=== PATIENT | female | born 1965 | race African-American/Black ===

== ENCOUNTER 2020-03-13 16:58 | Inpatient (IN) | payer MEDICARE, OTHER ==
[~2020-03-13] VITALS: Ht 162.6 cm; Wt 107.2 kg
[2020-03-13] MEDS ORDERED: SODIUM CHLORIDE 0.9% 1000ML 1,000 ML IV STA (17:06)
[2020-03-13] MEDS ORDERED: ACETAMINOPHEN 325 MG TAB PO ONE (17:09)
[2020-03-13] MEDS ORDERED: PIPER-TAZ 3.375 GM 50 ML IV SCH (17:15)
[2020-03-13] MEDS ORDERED: CLINDAMYCIN 600MG / 50ML 50 ML IV SCH (17:15)
[2020-03-13] MEDS ORDERED: MORPHINE SULFATE 2 MG/ML SYR 1ML IV PRN (17:15)
[2020-03-13 17:55] LABS: BASOPHILS % 0.3 % (0.0-1.0); EOSINOPHILS # (AUTO) 0.1 (0.0-0.4); EOSINOPHILS % 1.1 % (0.0-6.0); HEMATOCRIT 41.6 % (34.2-44.1); HEMOGLOBIN 13.6 g/dL (12.0-16.0); LYMPHOCYTES % 26.3 % (18.0-39.1); MEAN CORPUSCULAR HEMOGLOBIN 29.3 pg (28-32); MEAN CORPUSCULAR HGB CONC 32.7 g/dL (31-35); MEAN CORPUSCULAR VOLUME 89.7 fL (81-99); MONOCYTES # (AUTO) 0.6 (0.2-0.8); MONOCYTES % 8.3 % (4.4-11.3); NEUTROPHILS # (AUTO) 4.8 (2.1-6.9); NEUTROPHILS % 63.9 % (38.7-80.0); PLATELET COUNT 385 x10e3/uL (140-360); RED BLOOD COUNT 4.64 x10e6/uL (3.6-5.1); RED CELL DISTRIBUTION WIDTH 12.2 % (11.7-14.4)
[2020-03-13] MEDS: MORPHINE SULFATE INJ 4 MG/ML INJ 1ML IV PRN ×2 (17:59→23:24)
[2020-03-13] MEDS: SODIUM CHLORIDE 0.9% 1000ML 1,000 ML IV SCH (18:00)
[2020-03-13] MEDS: ONDANSETRON HCL INJ 2MG/ML 2ML 2 MG/ML VIAL IV PRN ×2 (18:01→23:23)
[2020-03-13 18:13] LABS: ALBUMIN 3.6 g/dL (3.5-5.0); ALBUMIN/GLOBULIN RATIO 0.8 (0.8-2.0); ANION GAP 15.6 mmol/L (8-16); CALCIUM 9.7 mg/dL (8.4-10.2); CREATININE, SERUM 1.33 mg/dL (0.57-1.11); POTASSIUM 4.6 mmol/L (3.5-5.1)
[2020-03-13] MEDS ORDERED: DEXTROSE 50% SYRINGE 50 ML IV PRN (18:30)
[2020-03-13] MEDS ORDERED: SODIUM CHLORIDE 0.9% 1000ML 1,000 ML IV SCH (19:15)
[2020-03-13] MEDS ORDERED: ACETAMINOPHEN 325 MG TAB PO PRN (20:00)
[2020-03-13] MEDS ORDERED: DOCUSATE SODIUM 100 MG CAP PO PRN (20:00)
[2020-03-13 20:05] LABS: CHOL/HDL RATIO 7.3 (3.0-3.6); CHOLESTEROL 323 MD/DL (0-199); HDL CHOLESTEROL 44 MG/DL (40-60); TRIGLYCERIDES 498 MG/DL (0-149)
[2020-03-13] MEDS: INSULIN LISPRO 100 UNIT/1 ML 3ML VIAL SQ SCH (20:56)
[2020-03-13 21:15] VITALS: BP 129/85
[2020-03-13 21:25] VITALS: BP 129/85
[2020-03-13 21:30] VITALS: BP 129/85
[2020-03-13] MEDS: AZTREONAM (AZACTAM) 0.5 GM in SODIUM CHLORIDE 0.9% 50ML 50 ML IV SCH (21:30)
[2020-03-13] MEDS ORDERED: AZTREONAM 0.5 GM in WATER STERILE 10ML VIAL 10 ML IV SCH (22:00)
[2020-03-14] VITALS (8 sets, daily range): BP systolic 101–130; BP diastolic 63–87
[2020-03-14] MEDS: SODIUM CHLORIDE 0.9% 1000ML 1,000 ML IV SCH ×3 (01:15→17:15)
[2020-03-14] MEDS: CLINDAMYCIN 600MG / 50ML 50 ML IV SCH ×3 (01:22→17:19)
[2020-03-14] MEDS ORDERED: LASIX40 MG PO (01:33)
[2020-03-14] MEDS ORDERED: SEROQUEL100 MG PO (01:33)
[2020-03-14] MEDS ORDERED: LISINOPRIL10 MG PO (01:33)
[2020-03-14] MEDS ORDERED: METOPROLOL TART25 MG PO (01:33)
[2020-03-14] MEDS ORDERED: XARELTO20 MG (01:33)
[2020-03-14] MEDS ORDERED: OXYBUTYNIN CHLOR5 MG PO (01:33)
[2020-03-14] MEDS ORDERED: GABAPENTIN300 MG PO (01:33)
[2020-03-14] MEDS ORDERED: FAMOTIDINE20 MG PO ×2 (01:33)
[2020-03-14] MEDS ORDERED: ESTRADIOL1 MG PO (01:35)
[2020-03-14] MEDS: ONDANSETRON HCL INJ 2MG/ML 2ML 2 MG/ML VIAL IV PRN ×3 (04:28→22:05)
[2020-03-14] MEDS: MORPHINE SULFATE INJ 4 MG/ML INJ 1ML IV PRN (04:30)
[2020-03-14] MEDS: AZTREONAM (AZACTAM) 0.5 GM in SODIUM CHLORIDE 0.9% 50ML 50 ML IV SCH ×3 (04:43→21:10)
[2020-03-14 05:57] LABS: BASOPHILS % 0.3 % (0.0-1.0); EOSINOPHILS # (AUTO) 0.1 (0.0-0.4); EOSINOPHILS % 1.1 % (0.0-6.0); HEMATOCRIT 37.3 % (34.2-44.1); HEMOGLOBIN 12.1 g/dL (12.0-16.0); LYMPHOCYTES # (AUTO) 1.8 (1.0-3.2); LYMPHOCYTES % 19.9 % (18.0-39.1); MEAN CORPUSCULAR HEMOGLOBIN 28.7 pg (28-32); MEAN CORPUSCULAR HGB CONC 32.4 g/dL (31-35); MEAN CORPUSCULAR VOLUME 88.4 fL (81-99); MONOCYTES # (AUTO) 0.9 (0.2-0.8); MONOCYTES % 9.5 % (4.4-11.3); NEUTROPHILS # (AUTO) 6.2 (2.1-6.9); NEUTROPHILS % 68.9 % (38.7-80.0); PLATELET COUNT 348 x10e3/uL (140-360); RED BLOOD COUNT 4.22 x10e6/uL (3.6-5.1); RED CELL DISTRIBUTION WIDTH 11.9 % (11.7-14.4)
[2020-03-14 06:29] LABS: ANION GAP 13.5 mmol/L (8-16); BLOOD UREA NITROGEN 18 mg/dL (7-26); BUN/CREATININE RATIO 17 (6-25); CALCIUM 9.1 mg/dL (8.4-10.2); CARBON DIOXIDE 24 mmol/L (22-29); CHLORIDE 100 mmol/L (98-107); CREATININE, SERUM 1.06 mg/dL (0.57-1.11); EST GLOMERULAR FILTRATION RATE > 60 ML/MIN (60-); GLUCOSE 271 mg/dL (74-118); POTASSIUM 4.5 mmol/L (3.5-5.1); SODIUM 133 mmol/L (136-145)
[2020-03-14] MEDS: INSULIN LISPRO 100 UNIT/1 ML 3ML VIAL SQ SCH ×4 (07:30→21:00)
[2020-03-14] MEDS ORDERED: HYDROCODONE/APAP 7.5MG-325MG 1 EA TAB PO PRN (09:45)
[2020-03-14] MEDS ORDERED: HYDROMORPHONE 1MG/1ML INJ IV PRN (09:45)
--- NOTE | 2020-03-14 10:03 | Operative Report ---
DATE OF PROCEDURE: 03/14/2020 SURGEON: Kulwant Mann MD PREOPERATIVE DIAGNOSIS: Infected recurrent epidermal cyst. POSTOPERATIVE DIAGNOSIS: Infected recurrent epidermal cyst. PROCEDURE PERFORMED: Incision and drainage and debridement of infected recurrent epidermal inclusion cyst. ANESTHESIA: General. ESTIMATED BLOOD LOSS: Minimal. DRAINS: None. COMPLICATIONS: None. INDICATION AND FINDINGS: This is a mentally-handicapped 54-year-old female with multiple medical problems, admitted for I and D of an abscess of the back. She had a previous drainage in the past, now has repaired. Intraoperative findings were about a 3 cm area of induration with central area of pregangrenous changes of the skin, very fluctuant, foul smelling was found. DESCRIPTION OF PROCEDURE: With the patient lying on the operative table in the supine position after administration of general anesthesia, she was prepped and draped for incision and drainage of recurrent infected epidermal inclusion cyst of the back abscess. An incision was made in a circular fashion slightly above the size of about 1.2 cm until the thin pregangrenous skin was excised. The cavity entered and loculations were broken down. Part of the abscess cavity was then removed including the lining of the cyst. At this point, we then irrigated the wound, cauterized any bleeding points and then packed the wound with iodoform gauze. Sterile dressing was applied. The patient tolerated the procedure well and taken to recovery room in stable condition. MD SERGIO Ibarra/MODL /[id number]
[2020-03-14] MEDS ORDERED: FENTANYL CITRATE/PF 100MCG/2 ML INJ ONE (10:04)
[2020-03-14] MEDS: FENOFIBRATE 145 MG TAB PO SCH (11:01)
[2020-03-14] MEDS ORDERED: SEVOFLURANE INHAL SOLN 250 ML PEN BTL ONE (14:54)
[2020-03-14] MEDS ORDERED: DEXAMETHASONE SOD PHOS INJ 4 MG/ML VIAL ONE (14:54)
[2020-03-14] MEDS ORDERED: ROCURONIUM BROMIDE 10 MG/ML 5ML VIAL IV ONE (14:54)
[2020-03-14] MEDS ORDERED: PROPOFOL IV EMULSION 10 MG/ML 20 ML VIAL ONE (14:54)
[2020-03-14] MEDS ORDERED: ONDANSETRON HCL INJ 2MG/ML 2ML 2 MG/ML VIAL ONE (14:54)
[2020-03-14] MEDS ORDERED: LIDOCAINE HCL 2% LOCAL INJ 5 ML SDV VIAL INJ ONE (14:54)
[2020-03-14] MEDS ORDERED: CEPACOL SORE THROAT LOZENGES PO PRN (15:45)
[2020-03-14] MEDS ORDERED: INSULIN GLARGINE 100 UNITS/ML VIAL SQ SCH (21:00)
[2020-03-14] MEDS: ATORVASTATIN 40 MG TAB PO SCH (21:10)
[2020-03-14] MEDS: ZOLPIDEM TARTRATE 5 MG TAB PO PRN (22:05)
[2020-03-15] VITALS (8 sets, daily range): BP systolic 124–149; BP diastolic 64–92
[2020-03-15] MEDS: SODIUM CHLORIDE 0.9% 1000ML 1,000 ML IV SCH ×4 (01:15→22:29)
[2020-03-15] MEDS: CLINDAMYCIN 600MG / 50ML 50 ML IV SCH ×3 (01:39→17:25)
[2020-03-15] MEDS: CALCIUM CARBONATE 500 MG CHEWABLE TABS PO PRN (01:42)
[2020-03-15] MEDS: AZTREONAM (AZACTAM) 0.5 GM in SODIUM CHLORIDE 0.9% 50ML 50 ML IV SCH ×3 (04:04→21:05)
[2020-03-15 05:57] LABS: ANION GAP 16.7 mmol/L (8-16); BLOOD UREA NITROGEN 15 mg/dL (7-26); BUN/CREATININE RATIO 15 (6-25); CALCIUM 9.9 mg/dL (8.4-10.2); CARBON DIOXIDE 26 mmol/L (22-29); CHLORIDE 96 mmol/L (98-107); CREATININE, SERUM 1.01 mg/dL (0.57-1.11); EST GLOMERULAR FILTRATION RATE > 60 ML/MIN (60-); GLUCOSE 258 mg/dL (74-118); POTASSIUM 4.7 mmol/L (3.5-5.1); SODIUM 134 mmol/L (136-145)
[2020-03-15] MEDS: INSULIN GLARGINE 100 UNITS/ML VIAL SQ SCH ×3 (06:15→21:05)
[2020-03-15] MEDS: INSULIN LISPRO 100 UNIT/1 ML 3ML VIAL SQ SCH ×4 (07:30→21:00)
[2020-03-15] MEDS ORDERED: CLINDAMYCIN HC150 MG PO (08:04)
[2020-03-15] MEDS: FENOFIBRATE 145 MG TAB PO SCH (08:20)
--- NOTE | 2020-03-15 15:09 | Consultation ---
DATE OF CONSULTATION: 03/15/2020 REASON FOR CONSULTATION: Back cellulitis and abscess. Thank you, Dr. Da Silva, for asking me to see this patient. HISTORY OF PRESENT ILLNESS: The patient is a 54-year-old woman, who presented to the emergency department with back abscess and cellulitis for two weeks. She denies fever and chills. There is no insect or spider bite. Also, she denies trauma. She has uncontrolled diabetes mellitus type 2. She has been evaluated by the surgical service and has successfully undergone incision and drainage. PAST MEDICAL HISTORY: Diabetes mellitus type 2, hypertension, hyperlipidemia, myocardial infarction, cerebrovascular accident, transient ischemic attack, and depression. PAST SURGICAL HISTORY: Uterine myomectomy and bladder surgery. ALLERGIES: THE PATIENT REPORTS BAD YEAST INFECTION TO PENICILLIN, WHICH HAD BEEN DOCUMENTED ALLERGY. MEDICATIONS: See MAR. The current antibiotics are Azactam 500 mg IV piggyback q.8 hours and clindamycin 600 mg IV piggyback q.8 hours. FAMILY HISTORY: Diabetes mellitus: Mother and father. SOCIAL HISTORY: No alcohol, tobacco, or recreational drug use. REVIEW OF SYSTEMS: The patient feels better and wants to work to go home. PHYSICAL EXAMINATION: GENERAL: No acute distress and does not appear toxic. VITAL SIGNS: T-max 98.1, pulse rate 95, respiratory rate 20, blood pressure 130/80, weight 236 pounds. HEENT: Normocephalic and atraumatic. There is no icterus or injection of conjunctivae. There is no ear or nasal discharge. There is moist oral mucosa. No pharyngeal erythema or exudate. NECK: Supple. No JVD or meningismus. LUNGS: Clear to auscultation bilaterally. HEART: With normal S1 and S2. Regular. ABDOMEN: Soft and nontender. EXTREMITIES: No edema, clubbing, or cyanosis. SKIN: The left upper back wound dressing is clean and intact. 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 LABORATORY AND DIAGNOSTICS: 03/14/2020 WBC 9060, hemoglobin 12.1, platelet 348,000, neutrophils 68.9, lymphocytes 19.9, monocytes 9.5, eosinophils 1.1, and basophils 0.5. BUN 15, creatinine 1.01, blood glucose 258. Surgical wound culture is pending, but the Gram stain showed Gram-positive cocci in pairs. IMPRESSION: 1. Cellulitis and abscess of the back, status post incision and drainage. 2. Uncontrolled diabetes mellitus type 2. PLAN: 1. Check wound culture result. 2. Glycemic control. 3. The patient may be discharged on clindamycin 300 mg by mouth four times a day for five days if she insists on being discharged home today. 4. Remove penicillin from allergy list. Bad vaginal yeast infection on penicillin is not an allergic reaction. MD JAMAR Benito/MODLilia /[id number]
[2020-03-15] MEDS ORDERED: PANTOPRAZOLE SOD 40 MG TABEC PO ONE (20:45)
[2020-03-15] MEDS: ATORVASTATIN 40 MG TAB PO SCH (21:05)
[2020-03-15] MEDS: ZOLPIDEM TARTRATE 5 MG TAB PO PRN (21:06)
[2020-03-16 00:22] VITALS: BP 127/82
[2020-03-16] MEDS: CALCIUM CARBONATE 500 MG CHEWABLE TABS PO PRN (02:17)
[2020-03-16] MEDS: CLINDAMYCIN 600MG / 50ML 50 ML IV SCH (02:17)
[2020-03-16 04:00] VITALS: BP 162/98
[2020-03-16] MEDS: AZTREONAM (AZACTAM) 0.5 GM in SODIUM CHLORIDE 0.9% 50ML 50 ML IV SCH (05:39)
[2020-03-16] MEDS: INSULIN LISPRO 100 UNIT/1 ML 3ML VIAL SQ SCH (07:30)
[2020-03-16 08:02] VITALS: BP 170/107
[2020-03-16 08:03] VITALS: BP 170/107
[2020-03-16] MEDS: FENOFIBRATE 145 MG TAB PO SCH (08:41)
[2020-03-16] MEDS: INSULIN GLARGINE 100 UNITS/ML VIAL SQ SCH (08:45)
[2020-03-16] MEDS: SODIUM CHLORIDE 0.9% 1000ML 1,000 ML IV SCH (09:15)
== END 2020-03-16 12:24 | disposition home or self-care (01) | DRG 603 ==
LOC: ER 16:58 → ERHOLD 17:10 → MED/SURG 20:58
PROVIDERS: ADMIT Internal Medicine; ATTEND Internal Medicine
PROC: 0H96XZZ Drainage of Back Skin, External Approach (ICD-10-PCS; principal; 2020-03-14 09:30)
DX: L02.212 Cutaneous abscess of back [any part, except buttock and flank] (principal); Z68.41 Body mass index [BMI] 40.0-44.9, adult; L03.312 Cellulitis of back [any part except buttock and flank]; L72.0 Epidermal cyst; E11.9 Type 2 diabetes mellitus without complications; E66.01 Morbid (severe) obesity due to excess calories; E78.5 Hyperlipidemia, unspecified; Z86.73 Personal history of transient ischemic attack (TIA), and cerebral infarction without residual deficits; Z87.891 Personal history of nicotine dependence; I25.2 Old myocardial infarction
CPT/HCPCS: 36415; 80048; 80053; 80061; 82948; 83036; 85025; 87071; 87075; 87205; 87635; 93005; 99284; J1100; J1815; J2001; J2270; J2405; J3010; J7030

== ENCOUNTER 2020-04-21 17:18 | Inpatient (IN) | payer MEDICARE, OTHER ==
[~2020-04-21] VITALS: Ht 162.6 cm; Wt 107.0 kg
[~2020-04-21 17:18] MED LIST: CLINDAMYCIN HC150 MG PO; ESTRADIOL1 MG PO; FAMOTIDINE20 MG PO; GABAPENTIN300 MG PO; LASIX40 MG PO; LISINOPRIL10 MG PO; METOPROLOL TART25 MG PO; OXYBUTYNIN CHLOR5 MG PO; SEROQUEL100 MG PO; XARELTO20 MG
[2020-04-21] MEDS ORDERED: SODIUM CHLORIDE 0.9% 1000ML 1,000 ML IV STA (17:19)
--- OUTSIDE RECORDS SUMMARY | 2020-04-21 17:22 | XMS REPORT | Summary of Care ---
Author Author [facility] Organization [facility] Address Unknown Phone Unavailable Encounter HQ Kirill(IRASEMA) [id number] Date(s): 06/16/18 - 06/17/18 [facility] [address] [place] [address]- Encounter Diagnosis Chronic obstructive pulmonary disease with (acute) exacerbation (Final) - 06/29/18 Tobacco use (Final) - Type 2 diabetes mellitus with hyperglycemia (Final) - Type 2 diabetes mellitus with diabetic polyneuropathy (Final) - Patient's other noncompliance with medication regimen (Final) - Hyperlipidemia, unspecified (Final) - Essential (primary) hypertension (Final) - rn long term care (current) use of anticoagulants (Final) - Personal history of pulmonary embolism (Final) - Discharge Disposition: Home or Self Care Attending Physician: Argelia Agrawal MD Admitting Physician: Argelia Agrawal MD Vital Signs 1 2 3 Most recent to oldest [Reference Range]: 175.26 cm (06/16/18 1:54 AM) Height 97.5 DegF (06/17/18 8:15 AM) 98.0 DegF (06/17/18 4:50 AM) 97.9 DegF (06/17/18 12:02 AM) Temperature Oral [96.4-99.1 DegF] 123/62 mmHg (06/17/18 8:15 AM) 144/89 mmHg *HI* (06/17/18 4:50 AM) 141/67 mmHg *HI* (06/17/18 12:02 AM) Blood Pressure [90-140/60-90 mmHg] 20 BRMIN (06/17/18 8:15 AM) 18 BRMIN (06/17/18 4:50 AM) 18 BRMIN (06/17/18 12:02 AM) Respiratory Rate [14-20 BRMIN] 100 bpm (06/17/18 8:15 AM) 111 bpm *HI* (06/16/18 1:54 AM) Peripheral Pulse Rate [60-100 bpm] 115.909 kg (06/16/18 4:23 PM) 104.545 kg (06/16/18 1:54 AM) Weight 34.04 m2 (06/16/18 1:54 AM) Body Mass Index Problem List Condition Effective Dates Status Health Status Informan t Bipolar(Confirmed) Resolved Bronchitis(Confirmed Resolved ) Diabetes Resolved mellitus(Confirmed) Hypertension(Confirm Resolved ed) Type II diabetes Active mellitus poorly controlled(Confirmed ) Allergies, Adverse Reactions, Alerts Substance Reaction Severity Status penicillins1 Active 1per patient "yeast infections" Medications acetaminophen 650 mg, 2 tab, Route: PO, Drug form: TAB, Q4H, Dosing Weight 104.545, kg, PRN Pa in 1-3/Temp > 100.4 F, Start date: 06/16/18 4:03:00 CDT, Duration: 30 day, Stop date: 07/16/18 4:02:00 CDT Notes: Do not exceed 4 gm/day. (Same as: Tylenol) Start Date: 06/16/18 Stop Date: 06/17/18 Status: Discontinued Advair Diskus 250 mcg-50 mcg inhalation powder 1 puff, INHALATION, BID Start Date: 06/16/18 Status: Ordered Advair Diskus 250 mcg-50 mcg inhalation powder 1 puff, Route: INHALATION, Drug Form: AERO, Dosing Weight 104.545, kg, BID, Star t date: 06/16/18 17:00:00 CDT, Duration: 30 day, Stop date: 07/16/18 9:00:00 CDT Start Date: 06/16/18 Stop Date: 06/16/18 Status: Deleted albuterol 0.083% inhalation solution 2.49 mg, Route: NEB, Drug form: SOLN, ONCE, Dosing Weight 104.545, kg, Priority: STAT, Start date: 06/16/18 3:49:00 CDT, Stop date: 06/16/18 3:49:00 CDT Start Date: 06/16/18 Stop Date: 06/16/18 Status: Completed albuterol-ipratropium 2.5-0.5 mg inhalation solution 3 ml, Route: NEB, Drug Form: SOLN, Dosing Weight 115.909, kg, ONCE, NOW, Start d ate: 06/17/18 2:09:00 CDT, Stop date: 06/17/18 2:09:00 CDT, Pediatric Dosing Start Date: 06/17/18 Stop Date: 06/17/18 Status: Completed atorvastatin 40 mg, 1 tab, Route: PO, Drug form: TAB, Bedtime, Dosing Weight 104.545, kg, Sta rt date: 06/16/18 21:00:00 CDT, Duration: 30 day, Stop date: 07/15/18 21:00:00 C DT Notes: (Same as: Lipitor) Start Date: 06/16/18 Stop Date: 06/17/18 Status: Discontinued atorvastatin 40 mg oral tablet 40 mg = 1 tab, PO, QPM Start Date: 06/16/18 Status: Ordered azithromycin 500 mg, Route: IVPB, ONCE, Dosing Weight 104.545, kg, Priority: STAT, Start date : 06/16/18 3:46:00 CDT, Stop date: 06/16/18 3:46:00 CDT, ABX Indication: Pneumon ia Start Date: 06/16/18 Stop Date: 06/16/18 Status: Completed Brovana 15 microgram, 2 mL, Route: NEB, Drug form: SOLN, BID, Dosing Weight 104.545, kg, Start date: 06/16/18 9:00:00 CDT, Duration: 30 day, Stop date: 07/15/18 17:00:00 CDT Notes: SEE RT DOCUMENTATIONSame as Brovana Start Date: 06/16/18 Stop Date: 06/17/18 Status: Discontinued budesonide 0.25 mg, 1 mL, Route: NEB, Drug form: SUSP, RBID, Dosing Weight 104.545, kg, Sta rt date: 06/16/18 4:54:00 CDT, Duration: 30 day, Stop date: 07/15/18 20:00:00 CD T Notes: (Same As: Pulmicort) Start Date: 06/16/18 Stop Date: 06/17/18 Status: Discontinued budesonide-formoterol 160 mcg-4.5 mcg/inh inhalation aerosol with adapter 2 inhalation, Route: INHALATION, Drug Form: AERO/A, RBID, Start date: 06/16/18 2 0:00:00 CDT, Duration: 30 day, Stop date: 07/16/18 8:00:00 CDT Notes: (Same as: Symbicort)WASTE: Aerosol - Return to Pharmacy Start Date: 06/16/18 Stop Date: 06/17/18 Status: Discontinued busPIRone 15 mg, 3 tab, Route: PO, Drug form: TAB, TID, Dosing Weight 104.545, kg, Start d ate: 06/16/18 13:00:00 CDT, Duration: 30 day, Stop date: 07/16/18 9:00:00 CDT Notes: (Same As: BuSpar) Start Date: 06/16/18 Stop Date: 06/16/18 Status: Deleted busPIRone 15 mg oral tablet 15 mg = 1 tab, PO, TID Start Date: 06/16/18 Status: Ordered Buspirone 15mg Buspirone 15mg, 1 tab, Drug form: MISC, Route: PO, TID, 06/16/18 13:00:00 CDT, D uration: 30 day, Stop date: 07/16/18 9:00:00 CDT Start Date: 06/16/18 Stop Date: 06/17/18 Status: Discontinued Chantix 1 mg, 2 tab, Route: PO, Drug form: TAB, BID, Dosing Weight 104.545, kg, Start da te: 06/16/18 17:00:00 CDT, Duration: 30 day, Stop date: 07/16/18 9:00:00 CDT Notes: Same as Chantix Start Date: 06/16/18 Stop Date: 06/17/18 Status: Discontinued Chantix 1 mg oral tablet 1 mg = 1 tab, PO, BID Start Date: 06/16/18 Status: Ordered Dextrose 50% Syringe 25 gm, 50 mL, Route: IVP, Drug Form: INJ, Dosing Weight 104.545, kg, PRN, PRN Bl ood Glucose Results, Start date: 06/16/18 4:05:00 CDT, Duration: 30 day, Stop da te: 07/16/18 4:04:00 CDT Start Date: 06/16/18 Stop Date: 06/16/18 Status: Discontinued Dextrose 50% Syringe 12.5 gm, 25 mL, Route: IVP, Drug Form: INJ, Dosing Weight 104.545, kg, PRN, PRN Blood Glucose Results, Start date: 06/16/18 4:05:00 CDT, Duration: 30 day, Stop date: 07/16/18 4:04:00 CDT Start Date: 06/16/18 Stop Date: 06/16/18 Status: Discontinued Dextrose 50% Syringe 25 gm, 50 mL, Route: IVP, Drug Form: INJ, Dosing Weight 104.545, kg, PRN, PRN Bl ood Glucose Results, Start date: 06/16/18 13:03:00 CDT, Duration: 30 day, Stop d ate: 07/16/18 13:02:00 CDT Start Date: 06/16/18 Stop Date: 06/17/18 Status: Discontinued Dextrose 50% Syringe 12.5 gm, 25 mL, Route: IVP, Drug Form: INJ, Dosing Weight 104.545, kg, PRN, PRN Blood Glucose Results, Start date: 06/16/18 13:03:00 CDT, Duration: 30 day, Stop date: 07/16/18 13:02:00 CDT Start Date: 06/16/18 Stop Date: 06/17/18 Status: Discontinued DuoNeb inhalation solution 3 mL, Route: NEB, Drug Form: SOLN, Dosing Weight 104.545, kg, QID, Start date: 0 06/16/18 9:00:00 CDT, Duration: 30 day, Stop date: 07/15/18 21:00:00 CDT Notes: (Same as: Duoneb) Start Date: 06/16/18 Stop Date: 06/17/18 Status: Discontinued DuoNeb inhalation solution 3 mL, NEB, QID, # 90 mL, 0 Refill(s), Pharmacy: [facility]/pharmacy #[id number] Start Date: 06/17/18 Status: Ordered DuoNeb inhalation solution 6 mL, Route: NEB, Drug Form: SOLN, Dosing Weight 104.545, kg, ONCE, Start date: 06/16/18 2:37:00 CDT, Stop date: 06/16/18 2:37:00 CDT Start Date: 06/16/18 Stop Date: 06/16/18 Status: Completed famotidine 20 mg, 1 tab, Route: PO, Drug form: TAB, Q12H, Start date: 06/16/18 21:00:00 CDT , Duration: 30 day, Stop date: 07/16/18 9:00:00 CDT Notes: (Same as: Pepcid) Start Date: 06/16/18 Stop Date: 06/17/18 Status: Discontinued gabapentin 600 mg oral tablet 600 mg = 1 tab, PO, TID Start Date: 06/16/18 Status: Ordered glucagon 1 mg, Route: IM, Drug form: PDR/INJ, PRN, Dosing Weight 104.545, kg, PRN Blood G lucose Results, Start date: 06/16/18 4:05:00 CDT, Duration: 30 day, Stop date: 0 07/16/18 4:04:00 CDT Start Date: 06/16/18 Stop Date: 06/16/18 Status: Discontinued glucagon 1 mg, Route: IM, Drug form: PDR/INJ, PRN, Dosing Weight 104.545, kg, PRN Blood G lucose Results, Start date: 06/16/18 13:03:00 CDT, Duration: 30 day, Stop date: 07/16/18 13:02:00 CDT Start Date: 06/16/18 Stop Date: 06/17/18 Status: Discontinued Humalog 15 unit, 0.15 mL, Route: SUB-Q, Drug form: SOLN, BID-After Meals, Start date: 17:30:00 CDT, Duration: 30 day, Stop date: 07/16/18 8:30:00 CDT Notes: (Same as: Humalog ) Roll in palms of hands gently; Do not shake `vigorou sly. "Single Patient Use Only " WASTE: F/P - Black; E - [facility] [address] able for 28 days at room temperature.Expires in days from Da te Start Date: 06/16/18 Stop Date: 06/16/18 Status: Canceled insulin detemir 25 unit, Route: SUB-Q, Drug form: SOLN, QPM (Insulin), Dosing Weight 104.545, kg , Start date: 06/16/18 16:30:00 CDT, Duration: 30 day, Stop date: 07/15/18 16:30 :00 CDT Start Date: 06/16/18 Stop Date: 06/16/18 Status: Deleted insulin glargine 25 unit, 0.25 mL, Route: SUB-Q, Drug form: SOLN, QPM, Start date: 06/16/18 21:00 :00 CDT, Duration: 30 day, Stop date: 07/15/18 21:00:00 CDT Notes: (Same as: Lantus)Do not hold insulin without contacting prescriberWASTE: F/P - Black; E - [facility] "single patient use only" Start Date: 06/16/18 Stop Date: 06/17/18 Status: Voided With Results insulin glargine 25 unit, 0.25 mL, Route: SUB-Q, Drug form: SOLN, BID, Dosing Weight 104.545, kg, Start date: 06/16/18 9:00:00 CDT, Duration: 30 day, Stop date: 07/15/18 17:00:00 CDT Notes: (Same as: Lantus)Do not hold insulin without contacting prescriberWASTE: F/P - Black; E - [facility] "single patient use only" Start Date: 06/16/18 Stop Date: 06/16/18 Status: Discontinued insulin lispro 10 unit, 0.1 mL, Route: SUB-Q, Drug form: SOLN, TID-Before Meals, Dosing Weight 104.545, kg, PRN Blood Glucose Results, Start date: 06/16/18 16:51:00 CDT, Durat ion: 30 day, Stop date: 07/16/18 16:50:00 CDT Notes: (Same as: Humalog ) Roll in palms of hands gently; Do not shake `vigorou sly. "Single Patient Use Only " WASTE: F/P - Black; E - [facility] [address] able for 28 days at room temperature.Expires in days from Da te Start Date: 06/16/18 Stop Date: 06/17/18 Status: Discontinued insulin lispro 10 unit, 0.1 mL, Route: SUB-Q, Drug form: SOLN, TID-Before Meals, Dosing Weight 104.545, kg, PRN Blood Glucose Results, Start date: 06/16/18 4:05:00 CDT, Durati on: 30 day, Stop date: 07/16/18 4:04:00 CDT Notes: (Same as: Humalog ) Roll in palms of hands gently; Do not shake `vigorou sly. "Single Patient Use Only " WASTE: F/P - Black; E - [facility] [address] able for 28 days at room temperature.Expires in days from Da te Start Date: 06/16/18 Stop Date: 06/16/18 Status: Discontinued insulin lispro 8 unit, 0.08 mL, Route: SUB-Q, Drug form: SOLN, TID-Before Meals, Dosing Weight 104.545, kg, PRN Blood Glucose Results, Start date: 06/16/18 4:05:00 CDT, Durati on: 30 day, Stop date: 07/16/18 4:04:00 CDT Notes: (Same as: Humalog ) Roll in palms of hands gently; Do not shake `vigorou sly. "Single Patient Use Only " WASTE: F/P - Black; E - [facility] [address] able for 28 days at room temperature.Expires in days from Da te Start Date: 06/16/18 Stop Date: 06/16/18 Status: Discontinued insulin lispro 6 unit, 0.06 mL, Route: SUB-Q, Drug form: SOLN, TID-Before Meals, Dosing Weight 104.545, kg, PRN Blood Glucose Results, Start date: 06/16/18 4:05:00 CDT, Durati on: 30 day, Stop date: 07/16/18 4:04:00 CDT Notes: (Same as: Humalog ) Roll in palms of hands gently; Do not shake `vigorou sly. "Single Patient Use Only " WASTE: F/P - Black; E - [facility] [address] able for 28 days at room temperature.Expires in days from Da te Start Date: 06/16/18 Stop Date: 06/16/18 Status: Discontinued insulin lispro 4 unit, 0.04 mL, Route: SUB-Q, Drug form: SOLN, Bedtime, Dosing Weight 104.545, kg, PRN Blood Glucose Results, Start date: 06/16/18 4:05:00 CDT, Duration: 30 da y, Stop date: 07/16/18 4:04:00 CDT Notes: (Same as: Humalog ) Roll in palms of hands gently; Do not shake `vigorou sly. "Single Patient Use Only " WASTE: F/P - Black; E - [facility] [address] able for 28 days at room temperature.Expires in days from Da te Start Date: 06/16/18 Stop Date: 06/16/18 Status: Discontinued insulin lispro 1 unit, 0.01 mL, Route: SUB-Q, Drug form: SOLN, Bedtime, Dosing Weight 104.545, kg, PRN Blood Glucose Results, Start date: 06/16/18 4:05:00 CDT, Duration: 30 da y, Stop date: 07/16/18 4:04:00 CDT Notes: (Same as: Humalog ) Roll in palms of hands gently; Do not shake `vigorou sly. "Single Patient Use Only " WASTE: F/P - Black; E - [facility] [address] able for 28 days at room temperature.Expires in days from Da te Start Date: 06/16/18 Stop Date: 06/16/18 Status: Discontinued insulin lispro 3 unit, 0.03 mL, Route: SUB-Q, Drug form: SOLN, Bedtime, Dosing Weight 104.545, kg, PRN Blood Glucose Results, Start date: 06/16/18 4:05:00 CDT, Duration: 30 da y, Stop date: 07/16/18 4:04:00 CDT Notes: (Same as: Humalog ) Roll in palms of hands gently; Do not shake `vigorou sly. "Single Patient Use Only " WASTE: F/P - Black; E - [facility] [address] able for 28 days at room temperature.Expires in days from Da te Start Date: 06/16/18 Stop Date: 06/16/18 Status: Discontinued insulin lispro 2 unit, 0.02 mL, Route: SUB-Q, Drug form: SOLN, Bedtime, Dosing Weight 104.545, kg, PRN Blood Glucose Results, Start date: 06/16/18 4:05:00 CDT, Duration: 30 da y, Stop date: 07/16/18 4:04:00 CDT Notes: (Same as: Humalog ) Roll in palms of hands gently; Do not shake `vigorou sly. "Single Patient Use Only " WASTE: F/P - Black; E - [facility] [address] able for 28 days at room temperature.Expires in days from Da te Start Date: 06/16/18 Stop Date: 06/16/18 Status: Discontinued insulin lispro 4 unit, 0.04 mL, Route: SUB-Q, Drug form: SOLN, TID-Before Meals, Dosing Weight 104.545, kg, PRN Blood Glucose Results, Start date: 06/16/18 4:05:00 CDT, Durati on: 30 day, Stop date: 07/16/18 4:04:00 CDT Notes: (Same as: Humalog ) Roll in palms of hands gently; Do not shake `vigorou sly. "Single Patient Use Only " WASTE: F/P - Black; E - [facility] [address] able for 28 days at room temperature.Expires in days from Da te Start Date: 06/16/18 Stop Date: 06/16/18 Status: Discontinued insulin lispro 2 unit, 0.02 mL, Route: SUB-Q, Drug form: SOLN, TID-Before Meals, Dosing Weight 104.545, kg, PRN Blood Glucose Results, Start date: 06/16/18 4:05:00 CDT, Durati on: 30 day, Stop date: 07/16/18 4:04:00 CDT Notes: (Same as: Humalog ) Roll in palms of hands gently; Do not shake `vigorou sly. "Single Patient Use Only " WASTE: F/P - Black; E - [facility] [address] able for 28 days at room temperature.Expires in days from Da te Start Date: 06/16/18 Stop Date: 06/16/18 Status: Discontinued insulin lispro 12 unit, 0.12 mL, Route: SUB-Q, Drug form: SOLN, Bedtime, Dosing Weight 104.545, kg, PRN Blood Glucose Results, Start date: 06/16/18 13:03:00 CDT, Duration: 30 day, Stop date: 07/16/18 13:02:00 CDT Notes: (Same as: Humalog ) Roll in palms of hands gently; Do not shake `vigorou sly. "Single Patient Use Only " WASTE: F/P - Black; E - [facility] [address] able for 28 days at room temperature.Expires in days from Da te Start Date: 06/16/18 Stop Date: 06/17/18 Status: Discontinued insulin lispro 10 unit, 0.1 mL, Route: SUB-Q, Drug form: SOLN, Bedtime, Dosing Weight 104.545, kg, PRN Blood Glucose Results, Start date: 06/16/18 13:03:00 CDT, Duration: 30 d ay, Stop date: 07/16/18 13:02:00 CDT Notes: (Same as: Humalog ) Roll in palms of hands gently; Do not shake `vigorou sly. "Single Patient Use Only " WASTE: F/P - Black; E - [facility] [address] able for 28 days at room temperature.Expires in days from Da te Start Date: 06/16/18 Stop Date: 06/17/18 Status: Discontinued insulin lispro 8 unit, 0.08 mL, Route: SUB-Q, Drug form: SOLN, Bedtime, Dosing Weight 104.545, kg, PRN Blood Glucose Results, Start date: 06/16/18 13:03:00 CDT, Duration: 30 d ay, Stop date: 07/16/18 13:02:00 CDT Notes: (Same as: Humalog ) Roll in palms of hands gently; Do not shake `vigorou sly. "Single Patient Use Only " WASTE: F/P - Black; E - [facility] [address] able for 28 days at room temperature.Expires in days from Da te Start Date: 06/16/18 Stop Date: 06/17/18 Status: Discontinued insulin lispro 4 unit, 0.04 mL, Route: SUB-Q, Drug form: SOLN, Bedtime, Dosing Weight 104.545, kg, PRN Blood Glucose Results, Start date: 06/16/18 13:03:00 CDT, Duration: 30 d ay, Stop date: 07/16/18 13:02:00 CDT Notes: (Same as: Humalog ) Roll in palms of hands gently; Do not shake `vigorou sly. "Single Patient Use Only " WASTE: F/P - Black; E - [facility] [address] able for 28 days at room temperature.Expires in days from Da te Start Date: 06/16/18 Stop Date: 06/17/18 Status: Discontinued insulin lispro 9 unit, 0.09 mL, Route: SUB-Q, Drug form: SOLN, TID-Before Meals, Dosing Weight 104.545, kg, PRN Blood Glucose Results, Start date: 06/16/18 13:03:00 CDT, Durat ion: 30 day, Stop date: 07/16/18 13:02:00 CDT Notes: (Same as: Humalog ) Roll in palms of hands gently; Do not shake `vigorou sly. "Single Patient Use Only " WASTE: F/P - Black; E - [facility] [address] able for 28 days at room temperature.Expires in days from Da te Start Date: 06/16/18 Stop Date: 06/17/18 Status: Discontinued insulin lispro 3 unit, 0.03 mL, Route: SUB-Q, Drug form: SOLN, TID-Before Meals, Dosing Weight 104.545, kg, PRN Blood Glucose Results, Start date: 06/16/18 13:03:00 CDT, Durat ion: 30 day, Stop date: 07/16/18 13:02:00 CDT Notes: (Same as: Humalog ) Roll in palms of hands gently; Do not shake `vigorou sly. "Single Patient Use Only " WASTE: F/P - Black; E - [facility] [address] able for 28 days at room temperature.Expires in days from Da te Start Date: 06/16/18 Stop Date: 06/17/18 Status: Discontinued insulin lispro 15 unit, 0.15 mL, Route: SUB-Q, Drug form: SOLN, TID-Before Meals, Dosing Weight 104.545, kg, PRN Blood Glucose Results, Start date: 06/16/18 13:03:00 CDT, Dura tion: 30 day, Stop date: 07/16/18 13:02:00 CDT Notes: (Same as: Humalog ) Roll in palms of hands gently; Do not shake `vigorou sly. "Single Patient Use Only " WASTE: F/P - Black; E - [facility] [address] able for 28 days at room temperature.Expires in days from Da te Start Date: 06/16/18 Stop Date: 06/17/18 Status: Discontinued insulin lispro 12 unit, 0.12 mL, Route: SUB-Q, Drug form: SOLN, TID-Before Meals, Dosing Weight 104.545, kg, PRN Blood Glucose Results, Start date: 06/16/18 13:03:00 CDT, Dura tion: 30 day, Stop date: 07/16/18 13:02:00 CDT Notes: (Same as: Humalog ) Roll in palms of hands gently; Do not shake `vigorou sly. "Single Patient Use Only " WASTE: F/P - Black; E - [facility] [address] able for 28 days at room temperature.Expires in days from Da te Start Date: 06/16/18 Stop Date: 06/17/18 Status: Discontinued insulin lispro 6 unit, 0.06 mL, Route: SUB-Q, Drug form: SOLN, TID-Before Meals, Dosing Weight 104.545, kg, PRN Blood Glucose Results, Start date: 06/16/18 13:03:00 CDT, Durat ion: 30 day, Stop date: 07/16/18 13:02:00 CDT Notes: (Same as: Humalog ) Roll in palms of hands gently; Do not shake `vigorou sly. "Single Patient Use Only " WASTE: F/P - Black; E - [facility] [address] able for 28 days at room temperature.Expires in days from Da te Start Date: 06/16/18 Stop Date: 06/17/18 Status: Discontinued insulin lispro 14 unit, 0.14 mL, Route: SUB-Q, Drug form: SOLN, TID-Before Meals, Dosing Weight 104.545, kg, PRN Blood Glucose Results, Start date: 06/16/18 16:51:00 CDT, Dura tion: 30 day, Stop date: 07/16/18 16:50:00 CDT Notes: (Same as: Humalog ) Roll in palms of hands gently; Do not shake `vigorou sly. "Single Patient Use Only " WASTE: F/P - Black; E - [facility] [address] able for 28 days at room temperature.Expires in days from Da te Start Date: 06/16/18 Stop Date: 06/17/18 Status: Discontinued insulin lispro 18 unit, 0.18 mL, Route: SUB-Q, Drug form: SOLN, TID-Before Meals, Dosing Weight 104.545, kg, PRN Blood Glucose Results, Start date: 06/16/18 16:51:00 CDT, Dura tion: 30 day, Stop date: 07/16/18 16:50:00 CDT Notes: (Same as: Humalog ) Roll in palms of hands gently; Do not shake `vigorou sly. "Single Patient Use Only " WASTE: F/P - Black; E - [facility] [address] able for 28 days at room temperature.Expires in days from Da te Start Date: 06/16/18 Stop Date: 06/17/18 Status: Discontinued insulin lispro 22 unit, 0.22 mL, Route: SUB-Q, Drug form: SOLN, TID-Before Meals, Dosing Weight 104.545, kg, PRN Blood Glucose Results, Start date: 06/16/18 16:51:00 CDT, Dura tion: 30 day, Stop date: 07/16/18 16:50:00 CDT Notes: (Same as: Humalog ) Roll in palms of hands gently; Do not shake `vigorou sly. "Single Patient Use Only " WASTE: F/P - Black; E - [facility] [address] able for 28 days at room temperature.Expires in days from Da te Start Date: 06/16/18 Stop Date: 06/17/18 Status: Discontinued insulin lispro 6 unit, 0.06 mL, Route: SUB-Q, Drug form: SOLN, TID-Before Meals, Dosing Weight 104.545, kg, PRN Blood Glucose Results, Start date: 06/16/18 16:51:00 CDT, Durat ion: 30 day, Stop date: 07/16/18 16:50:00 CDT Notes: (Same as: Humalog ) Roll in palms of hands gently; Do not shake `vigorou sly. "Single Patient Use Only " WASTE: F/P - Black; E - [facility] [address] able for 28 days at room temperature.Expires in days from Da te Start Date: 06/16/18 Stop Date: 06/17/18 Status: Discontinued insulin lispro 15 unit, 0.15 mL, Route: SUB-Q, Drug form: SOLN, BID-Before Meals, Dosing Weight 104.545, kg, Start date: 06/16/18 12:40:00 CDT, Duration: 30 day, Stop date: 7:30:00 CDT Notes: (Same as: Humalog ) Roll in palms of hands gently; Do not shake `jose luis sly. "Single Patient Use Only " WASTE: F/P - Black; E - [facility] able for 28 days at room temperature.Expires in days from Da te Start Date: 06/16/18 Stop Date: 06/16/18 Status: Discontinued Insulin regular 10 unit, Route: IV, ONCE, Dosing Weight 104.545, kg, Priority: STAT, Start date: 06/16/18 3:16:00 CDT, Stop date: 06/16/18 3:16:00 CDT Start Date: 06/16/18 Stop Date: 06/16/18 Status: Completed Januvia 100 mg, 1 tab, Route: PO, Drug form: TAB, Daily, Dosing Weight 104.545, kg, Prio rity: NOW, Start date: 06/16/18 11:33:00 CDT, Duration: 30 day, Stop date: 07/16 9:00:00 CDT Notes: (Same as: Januvia) Start Date: 06/16/18 Stop Date: 06/17/18 Status: Discontinued Januvia 100 mg oral tablet 100 mg = 1 tab, PO, Daily Start Date: 06/16/18 Status: Ordered Lantus 100 units/mL 50 unit, 0.5 mL, Route: SUB-Q, Drug form: SOLN, QAM, Dosing Weight 104.545, kg, Start date: 06/17/18 9:00:00 CDT, Duration: 30 day, Stop date: 07/16/18 9:00:00 CDT Notes: (Same as: Lantus)Do not hold insulin without contacting prescriberWASTE: F/P - Black; E - [facility] "single patient use only" Start Date: 06/17/18 Stop Date: 06/17/18 Status: Canceled Lantus 100 units/mL 25 unit, 0.25 mL, Route: SUB-Q, Drug form: SOLN, ONCE, Dosing Weight 104.545, kg , Priority: STAT, Start date: 06/16/18 11:57:00 CDT, Stop date: 06/16/18 11:57:0 0 CDT Notes: (Same as: Lantus)Do not hold insulin without contacting prescriberWASTE: F/P - Black; E - [facility] "single patient use only" Start Date: 06/16/18 Stop Date: 06/16/18 Status: Completed Lantus 100 units/mL 60 unit, 0.6 mL, Route: SUB-Q, Drug form: SOLN, BID, Dosing Weight 104.545, kg, Start date: 06/17/18 9:00:00 CDT, Duration: 30 day, Stop date: 07/16/18 17:00:00 CDT Notes: (Same as: Lantus)Do not hold insulin without contacting prescriberWASTE: F/P - Black; E - [facility] "single patient use only" Start Date: 06/17/18 Stop Date: 06/17/18 Status: Discontinued Lasix 20 mg oral tablet 20 mg, 1 tab, Route: PO, Drug form: TAB, Daily, Dosing Weight 104.545, kg, Start date: 06/16/18 9:00:00 CDT, Duration: 30 day, Stop date: 07/15/18 9:00:00 CDT Notes: (Same as: Lasix) May cause GI upset. Give with food or milk. Start Date: 06/16/18 Stop Date: 06/17/18 Status: Discontinued Levemir FlexTouch 100 units/mL subcutaneous solution 25 unit, SUB-Q, QPM (Insulin) Start Date: 06/16/18 Stop Date: 06/17/18 Status: Discontinued Levemir FlexTouch 100 units/mL subcutaneous solution 60 unit, SUB-Q, BID, # 10 mL, 0 Refill(s), Pharmacy: [id number] [id number] Start Date: 06/17/18 Stop Date: 07/17/18 Status: Ordered Levemir FlexTouch 100 units/mL subcutaneous solution 50 unit, SUB-Q, QAM (Insulin) Start Date: 06/16/18 Stop Date: 06/17/18 Status: Discontinued lisinopril 20 mg, 1 tab, Route: PO, Drug form: TAB, Daily, Dosing Weight 104.545, kg, Start date: 06/16/18 9:00:00 CDT, Duration: 30 day, Stop date: 07/15/18 9:00:00 CDT Notes: (Same as: Prinivil, Zestril) Start Date: 06/16/18 Stop Date: 06/17/18 Status: Discontinued lisinopril 20 mg oral tablet 20 mg = 1 tab, PO, Daily Start Date: 06/16/18 Stop Date: 06/17/18 Status: Discontinued lisinopril 20 mg oral tablet 20 mg = 1 tab, PO, Daily Start Date: 06/16/18 Status: Ordered methylPREDNISolone SODium SUCCinate 80 mg, 1.28 mL, Route: IVP, Drug form: INJ, Q8H, Dosing Weight 104.545, kg, Star t date: 06/16/18 12:00:00 CDT, Duration: 30 day, Stop date: 07/16/18 4:00:00 CDT Notes: (Same as:Solu-MEDROL, A-Methapred) Start Date: 06/16/18 Stop Date: 06/16/18 Status: Discontinued metoprolol tartrate 25 mg, 1 tab, Route: PO, Drug form: TAB, BID, Dosing Weight 104.545, kg, Priorit y: NOW, Start date: 06/16/18 11:33:00 CDT, Duration: 30 day, Stop date: 07/16/18 9:00:00 CDT Notes: (Same as: Lopressor) Start Date: 06/16/18 Stop Date: 06/17/18 Status: Discontinued metoprolol tartrate 25 mg oral tablet 25 mg = 1 tab, PO, BID Start Date: 06/16/18 Status: Ordered Neurontin 600 mg oral tablet 600 mg, 2 cap, Route: PO, Drug form: CAP, Q8H, Dosing Weight 104.545, kg, Start date: 06/16/18 8:00:00 CDT, Duration: 30 day, Stop date: 07/16/18 0:00:00 CDT Notes: (Same as: Neurontin) Start Date: 06/16/18 Stop Date: 06/17/18 Status: Discontinued normal saline 0.9% IV 1,000 mL 1,000 mL, Rate: 100 ml/hr, Infuse over: 10 hr, Route: IV, Dosing Weight 115.909 kg, Total Volume: 1,000, Start date: 06/16/18 16:55:00 CDT, Duration: 30 day, St op date: 07/16/18 16:54:00 CDT, 2.4, m2 Start Date: 06/16/18 Stop Date: 06/17/18 Status: Discontinued NovoLOG FlexPen 15 unit, Route: SUB-Q, Drug form: SOLN, BID-After Meals, Dosing Weight 104.545, kg, Start date: 06/16/18 17:30:00 CDT, Duration: 30 day, Stop date: 07/16/18 8:3 0:00 CDT Start Date: 06/16/18 Stop Date: 06/16/18 Status: Deleted NovoLOG FlexPen 100 units/mL injectable solution 15 unit, SUB-Q, TID-Before Meals, # 10 mL, 0 Refill(s), Pharmacy: [facility]/pharmacy # [id number] Start Date: 06/17/18 Status: Ordered NovoLOG FlexPen 100 units/mL injectable solution 15 unit, SUB-Q, BID-After Meals Start Date: 06/16/18 Stop Date: 06/17/18 Status: Discontinued ondansetron 4 mg, 2 mL, Route: IVP, Drug form: INJ, Q6H, Dosing Weight 104.545, kg, PRN Naus ea & Vomiting, Start date: 06/16/18 4:03:00 CDT, Duration: 30 day, Stop date: 07/16/18 4:02:00 CDT Notes: (Same as: Zacarias) MEDICATION WASTE Product Size: 4 mgProduct Was nathan: ___ mg Start Date: 06/16/18 Stop Date: 06/17/18 Status: Discontinued Pepcid 20 mg oral tablet 20 mg, 1 tab, Route: PO, Drug form: TAB, Q12H, Dosing Weight 104.545, kg, Start date: 06/16/18 9:00:00 CDT, Duration: 30 day, Stop date: 07/15/18 21:00:00 CDT Notes: (Same as: Pepcid) Start Date: 06/16/18 Stop Date: 06/16/18 Status: Voided With Results predniSONE 40 mg, 2 tab, Route: PO, Drug form: TAB, Daily, Dosing Weight 115.909, kg, Prior ity: NOW, Start date: 06/16/18 16:50:00 CDT, Duration: 30 day, Stop date: 9:00:00 CDT Notes: Take with food. Start Date: 06/16/18 Stop Date: 06/17/18 Status: Discontinued predniSONE 10 mg oral tablet See Instructions, 4 tabs po daily for 3 days, then 3 tabs daily for 3 days, then 2 tab po daily x3 days, then 1 tab po daily for 3 days, # 28 tab, 0 Refill(s), Pharmacy: [facility]/pharmacy #[id number] Start Date: 06/17/18 Stop Date: 06/28/18 Status: Completed QUEtiapine 800 mg, 2 tab, Route: PO, Drug form: TAB, Bedtime, Priority: NOW, Start date: 12:07:00 CDT, Duration: 30 day, Stop date: 07/15/18 21:00:00 CDT Notes: (Same as: SEROquel) Start Date: 06/16/18 Stop Date: 06/17/18 Status: Discontinued ranitidine 150 mg oral tablet 150 mg = 1 tab, PO, BID Start Date: 06/16/18 Status: Ordered ranitidine 150 mg oral tablet 150 mg, 1 tab, Route: PO, Drug form: TAB, BID, Dosing Weight 104.545, kg, Start date: 06/16/18 17:00:00 CDT, Duration: 30 day, Stop date: 07/16/18 9:00:00 CDT Start Date: 06/16/18 Stop Date: 06/16/18 Status: Deleted SEROquel 800 mg, Route: PO, Drug form: TAB, Bedtime, Dosing Weight 104.545, kg, Start andrea e: 06/16/18 21:00:00 CDT, Duration: 30 day, Stop date: 07/15/18 21:00:00 CDT Start Date: 06/16/18 Stop Date: 06/16/18 Status: Deleted SEROquel 400 mg oral tablet 800 mg = 2 tab, PO, Bedtime Start Date: 06/16/18 Status: Ordered Sodium Chloride 0.9% (Bolus) IV 1,000 mL, 1000 ml/hr, Infuse Over: 1 hr, Route: IV, 1,000, Drug form: INJ, ONCE, Priority: STAT, Dosing Weight 104.545 kg, Start date: 06/16/18 1:59:00 CDT, Stop date: 06/16/18 1:59:00 CDT Start Date: 06/16/18 Stop Date: 06/16/18 Status: Completed Sodium Chloride 0.9% (Bolus) IV 1,000 mL, Infuse Over: 1 hr, Route: IV, ONCE, Priority: STAT, Dosing Weight 104. 545 kg, Start date: 06/16/18 3:49:00 CDT, Stop date: 06/16/18 3:49:00 CDT Start Date: 06/16/18 Stop Date: 06/16/18 Status: Completed Solu-MEDROL 125 mg, Route: IVP, ONCE, Dosing Weight 104.545, kg, Priority: STAT, Start date: 06/16/18 3:46:00 CDT, Stop date: 06/16/18 3:46:00 CDT Start Date: 06/16/18 Stop Date: 06/16/18 Status: Completed Tylenol with Codeine #3 oral tablet 1 tab, PO, Q6H, PRN Pain Score 4-6 Start Date: 06/16/18 Status: Ordered Tylenol with Codeine #3 oral tablet 1 tab, Route: PO, Drug Form: TAB, Dosing Weight 104.545, kg, Q6H, PRN Pain Score 4-6, Start date: 06/16/18 11:33:00 CDT, Duration: 30 day, Stop date: 07/16/18 1 1:32:00 CDT Notes: Do not exceed 4gm/day of acetaminophen. (Same as: Tylenol with Codeine # 3) Start Date: 06/16/18 Stop Date: 06/17/18 Status: Discontinued Xarelto 20 mg, 1 tab, Route: PO, Drug form: TAB, Q5PM, Dosing Weight 104.545, kg, Start date: 06/16/18 17:00:00 CDT, Duration: 30 day, Stop date: 07/15/18 17:00:00 CDT Notes: (Same as: Xarelto)Administer with food Start Date: 06/16/18 Stop Date: 06/17/18 Status: Discontinued Xarelto 20 mg oral tablet 20 mg = 1 tab, PO, Daily Start Date: 06/16/18 Status: Ordered Results ELECTROLYTES Most recent to 1 oldest [Reference Range]: Sodium Lvl [135-145 136 mEq/L 136 mEq/L mEq/L] (06/17/18 2:33 AM) (06/16/18 2:42 AM) Potassium Lvl 4.7 mEq/L 4.5 mEq/L [3.5-5.1 mEq/L] (06/17/18 2:33 AM) (06/16/18 2:42 AM) Chloride Lvl [95-109 103 mEq/L 99 mEq/L mEq/L] (06/17/18 2:33 AM) (06/16/18 2:42 AM) CO2 [24-32 mEq/L] 25 mEq/L 27 mEq/L (06/17/18 2:33 AM) (06/16/18 2:42 AM) AGAP [10.0-20.0 12.7 mEq/L 14.5 mEq/L mEq/L] (06/17/18 2:33 AM) (06/16/18 2:42 AM) CHEM PANEL Most recent to 1 2 oldest [Reference Range]: Creatinine Lvl 1.02 mg/dL 1.18 mg/dL [0.50-1.40 mg/dL] (06/17/18 2:33 AM) (06/16/18 2:42 AM) eGFR 74 mL/min/1.73m2 1 62 mL/min/1.73m2 2 *NA* *NA* (06/17/18 2:33 AM) (06/16/18 2:42 AM) BUN [7-22 mg/dL] 22 mg/dL 17 mg/dL (06/17/18 2:33 AM) (06/16/18 2:42 AM) Glucose Lvl [70-99 360 mg/dL 487 mg/dL 3 mg/dL] *HI* *CRIT* (06/17/18 2:33 AM) (06/16/18 2:42 AM) Calcium Lvl 9.1 mg/dL 9.1 mg/dL [8.5-10.5 mg/dL] (06/17/18 2:33 AM) (06/16/18 2:42 AM) Magnesium Lvl 2.3 mg/dL [1.8-2.4 mg/dL] (06/17/18 2:33 AM) 1Result Comment: The eGFR is calculated using the CKD-EPI formula. In most young, healthy individuals the eGFR will be >90 mL/min/1.73m2. The eGFR declines with age. An eGFR of 60-89 may be normal in some populations, particularly the elderly, for whom the CKD-EPI formula has not been extensively validated. Use of the eGFR is not recommended in the following populations: Individuals with unstable creatinine concentrations, including patients and those with serious co-morbid conditions. Patients with extremes in muscle mass or diet. The data above are obtained from the National Kid[employer] Education Program ( [employer]) which additionally recommends that when the eGFR is used in patients with extremes of body mass index for purposes of drug dosing, the eGFR should be mul tiplied by the estimated BMI. 2Result Comment: The eGFR is calculated using the CKD-EPI formula. In most young, healthy individuals the eGFR will be >90 mL/min/1.73m2. The eGFR declines with age. An eGFR of 60-89 may be normal in some populations, particularly the elderly, for whom the CKD-EPI formula has not been extensively validated. Use of the eGFR is not recommended in the following populations: Individuals with unstable creatinine concentrations, including patients and those with serious co-morbid conditions. Patients with extremes in muscle mass or diet. The data above are obtained from the National Kid[employer] Disease Education Program ( [employer]) which additionally recommends that when the eGFR is used in patients with extremes of body mass index for purposes of drug dosing, the eGFR should be mul tiplied by the estimated BMI. 3Result Comment: Critical Result(s) called to samira at 06/16/2018 03:14 by beth. Read back OK. CARDIAC ENZYMES Most recent to 1 2 oldest [Reference Range]: Total CK [12-191 67 unit/L unit/L] (06/16/18 2:42 AM) CK MB [0.5-3.6 1.2 ng/mL ng/mL] (06/16/18 2:42 AM) CK MB Index 1.8 [0.0-2.5] (06/16/18 2:42 AM) Troponin-I <0.02 ng/mL [0.00-0.40 ng/mL] (06/16/18 2:42 AM) BNP [<=100 pg/mL] 3 pg/mL (06/16/18 2:42 AM) SPECIAL CHEMISTRY Most recent to 1 2 oldest [Reference Range]: Hgb A1C [<=5.6 %] 12.7 % *HI* (06/17/18 2:32 AM) HEMATOLOGY Most recent to 1 2 oldest [Reference Range]: WBC [3.7-10.4 K/CMM] 5.9 K/CMM (06/16/18 3:15 AM) RBC [4.20-5.40 4.44 M/CMM M/CMM] (06/16/18 3:15 AM) Hgb [12.0-16.0 g/dL] 13.2 g/dL (06/16/18 3:15 AM) Hct [36.0-48.0 %] 39.7 % (06/16/18 3:15 AM) MCV [80.0-98.0 fL] 89.5 fL (06/16/18 3:15 AM) MCH [27.0-31.0 pg] 29.7 pg (06/16/18 3:15 AM) MCHC [32.0-36.0 33.3 g/dL g/dL] (06/16/18 3:15 AM) RDW [11.5-14.5 %] 13.5 % (06/16/18 3:15 AM) MPV [7.4-10.4 fL] 8.3 fL (06/16/18 3:15 AM) Platelet [133-450 269 K/CMM K/CMM] (06/16/18 3:15 AM) Segs [45.0-75.0 %] 55.9 % (06/16/18 3:15 AM) Lymphocytes 31.1 % [20.0-40.0 %] (06/16/18 3:15 AM) Monocytes [2.0-12.0 11.6 % %] (06/16/18 3:15 AM) Eosinophils [0.0-4.0 0.7 % %] (06/16/18 3:15 AM) Basophils [0.0-1.0 0.7 % %] (06/16/18 3:15 AM) Neutrophils # 3.3 K/CMM [1.5-8.1 K/CMM] (06/16/18 3:15 AM) Lymphocytes # 1.8 K/CMM [1.0-5.5 K/CMM] (06/16/18 3:15 AM) Monocytes # [0.0-0.8 0.7 K/CMM K/CMM] (06/16/18 3:15 AM) Immunizations No data available for this section Procedures No data available for this section Social History Social History Type Response Smoking Status Current every day smoker; T ype: Cigarettes; Exposure to Tobacco Smoke None; Cigarette Smoking Last 365 Days Yes; Re g Smoking Cessation Counseling No; Tobacco use per day: 20; entered on: 07/23/18 Assessment and Plan Extracted from: Title: Progress Note * Author: Jerrell Motta MD Andrea e: 06/16/18 Impression and Plan 1. Acute on chronic COPD exacerbation: i mproved, still tachycardic. not stable for discharge cont solumedrol, nebs advised to quit tobacco use not hypooxic on room air at rest, 96% 2. Diabetes mellitus, type 2, insulin-de pendent: uncontrolled and exacerbated by concurrrent corticosteroids home regimen resumed, SSI changed to high dose check a1c 3. Essential hypertension: controlled 4. h/o pulmonary embolism on xarelto: no bleeding. compliant with therapy. Tachycardia c/w COPD, not recurrent VTE 5. Dyslipidemia: statin 6. h/o myocardial infarction and prior C VA 7. Depression: seroquel time: 40min Extracted from: Title: History and Physical Author: Argelia Agrawal MD Date: 06/16/18 COPD with Acute exacerbation Current tobacco abuse - duo-nebd q4h -Budesonide and arformoterol nebs q12h -O2 PRN - IV solumedrol HTN - resume home medications Hx of PE - resume Xarelto DM2 uncontrolled with Hyperglycemia and neuropathyinsulin dependent - Lantus BID, ISS - accu-checks, A1c - Gabapentin HLD - resume statin DVT ppx - on xarelto GI ppx - Pepcid
--- OUTSIDE RECORDS SUMMARY | 2020-04-21 17:22 | XMS REPORT | Summary of Care ---
Author Author [facility] Organization [facility] Address Unknown Phone Unavailable Encounter [facility] Kirill(IRASEMA) [id number] Date(s): 07/23/19 - 07/24/19 [facility] [address] [place] [address]- Discharge Disposition: Home or Self Care Attending Physician: Olive Gastelum MD Admitting Physician: Olive Gastelum MD Vital Signs 1 2 3 Most recent to oldest [Reference Range]: 162.56 cm (07/23/19 8:12 PM) 167.64 cm (07/23/19 1:19 PM) Height 97.9 DegF (07/24/19 8:06 AM) 97.9 DegF (07/24/19 5:13 AM) 97.7 DegF (07/24/19 12:28 AM) Temperature Oral [96.4-99.1 DegF] 95/63 mmHg (07/24/19 8:06 AM) 122/75 mmHg (07/24/19 5:13 AM) 108/74 mmHg (07/24/19 12:28 AM) Blood Pressure [90-140/60-90 mmHg] 20 BRMIN (07/24/19 8:06 AM) 18 BRMIN (07/24/19 5:13 AM) 17 BRMIN (07/24/19 12:28 AM) Respiratory Rate [14-20 BRMIN] 72 bpm (07/24/19 5:13 AM) 66 bpm (07/24/19 12:28 AM) 75 bpm (07/23/19 7:59 PM) Peripheral Pulse Rate [60-100 bpm] 111.818 kg (07/23/19 8:12 PM) 118.182 kg (07/23/19 1:19 PM) Weight 42.31 m2 (07/23/19 8:12 PM) 42.05 m2 (07/23/19 1:19 PM) Body Mass Index Problem List Condition Effective Dates Status Health Status Informan t Bipolar(Confirmed) Resolved Bronchitis(Confirmed Resolved ) Diabetes Resolved mellitus(Confirmed) Hypertension(Confirm Resolved ed) Type II diabetes Active mellitus poorly controlled(Confirmed ) Allergies, Adverse Reactions, Alerts Substance Reaction Severity Status penicillins1 Active 1per patient "yeast infections" Medications acetaminophen 650 mg, 2 tab, Route: PO, Drug form: TAB, Q4H, Dosing Weight 118.182, kg, PRN Pa in 1-3/Temp > 100.4 F, Start date: 07/23/19 15:51:00 CDT, Duration: 30 day, Stop date: 08/22/19 15:50:00 CDT, 0 Notes: Do not exceed 4 gm/day. (Same as: Tylenol) Start Date: 07/23/19 Stop Date: 07/24/19 Status: Discontinued acetaminophen-codeine #3 1 tab, Route: PO, Drug Form: TAB, Dosing Weight 118.182, kg, ONCE, Start date: 0 07/23/19 19:33:00 CDT, Stop date: 07/23/19 19:33:00 CDT, 0 Notes: Do not exceed 4gm/day of acetaminophen. (Same as: Tylenol with Codeine # 3) Start Date: 07/23/19 Stop Date: 07/23/19 Status: Completed albuterol 0.083% inhalation solution 2.49 mg, 3 mL, Route: NEB, Drug form: SOLN, PRN, Dosing Weight 118.182, kg, PRN Respiratory Pathway, Start date: 07/23/19 15:59:00 CDT, Duration: 30 day, Stop d ate: 08/22/19 15:58:00 CDT, 0 Notes: SEE RT DOCUMENTATION (Same as: Proventil) Start Date: 07/23/19 Stop Date: 07/24/19 Status: Discontinued aspirin 325 mg, 1 tab, Route: PO, Drug form: TAB, ONCE, Dosing Weight 118.182, kg, Prior ity: STAT, Start date: 07/23/19 15:27:00 CDT, Stop date: 07/23/19 15:27:00 CDT, 0 Notes: Take with food. Start Date: 07/23/19 Stop Date: 07/23/19 Status: Completed aspirin 81 mg, 1 tab, Route: PO, Drug form: ECTAB, Daily, Dosing Weight 111.818, kg, Sta rt date: 07/25/19 9:00:00 CDT, Duration: 30 day, Stop date: 08/23/19 9:00:00 CDT , 0 Notes: Do not crush or chew.(Same As: Ecotrin) Start Date: 07/25/19 Stop Date: 07/24/19 Status: Canceled aspirin 325 mg tablet, enteric coated 325 mg, 1 tab, Route: PO, Drug form: ECTAB, Daily, Dosing Weight 118.182, kg, St art date: 07/24/19 9:00:00 CDT, Duration: 30 day, Stop date: 08/22/19 9:00:00 CD T, 0 Notes: (Do Not Crush) Do not crush or chew. Start Date: 07/24/19 Stop Date: 07/24/19 Status: Discontinued aspirin 81 mg tablet, enteric coated 81 mg = 1 tab, PO, Daily, # 30 tab, 0 Refill(s) Start Date: 07/25/19 Stop Date: 08/24/19 Status: Ordered atorvastatin 80 mg, 2 tab, Route: PO, Drug form: TAB, Bedtime, Dosing Weight 118.182, kg, Sta rt date: 07/23/19 21:00:00 CDT, Duration: 30 day, Stop date: 08/21/19 21:00:00 C DT, 0 Notes: (Same as: Lipitor) Start Date: 07/23/19 Stop Date: 07/24/19 Status: Discontinued busPIRone 15 mg, 1 tab, Route: PO, Drug form: TAB, TID, Dosing Weight 111.818, kg, Start d ate: 07/24/19 9:00:00 CDT, Duration: 30 day, Stop date: 08/22/19 17:00:00 CDT, 0 Notes: (Same As: BuSpar) Start Date: 07/24/19 Stop Date: 07/24/19 Status: Discontinued Dextrose 50% Syringe 12.5 gm, 25 mL, Route: IVP, Drug Form: INJ, Dosing Weight 111.818, kg, PRN, PRN Blood Glucose Results, Start date: 07/24/19 6:56:00 CDT, Duration: 30 day, Stop date: 08/23/19 6:55:00 CDT, 0 Start Date: 07/24/19 Stop Date: 07/24/19 Status: Discontinued Dextrose 50% Syringe 25 gm, 50 mL, Route: IVP, Drug Form: INJ, Dosing Weight 111.818, kg, PRN, PRN Bl ood Glucose Results, Start date: 07/24/19 6:56:00 CDT, Duration: 30 day, Stop da te: 08/23/19 6:55:00 CDT, 0 Start Date: 07/24/19 Stop Date: 07/24/19 Status: Discontinued Dextrose 50% Syringe 12.5 gm, 25 mL, Route: IVP, Drug Form: INJ, Dosing Weight 118.182, kg, PRN, PRN Blood Glucose Results, Start date: 07/23/19 15:51:00 CDT, Duration: 30 day, Stop date: 08/22/19 15:50:00 CDT, 0 Start Date: 07/23/19 Stop Date: 07/24/19 Status: Deleted Dextrose 50% Syringe 25 gm, 50 mL, Route: IVP, Drug Form: INJ, Dosing Weight 118.182, kg, PRN, PRN Bl ood Glucose Results, Start date: 07/23/19 15:51:00 CDT, Duration: 30 day, Stop d ate: 08/22/19 15:50:00 CDT, 0 Start Date: 07/23/19 Stop Date: 07/24/19 Status: Deleted Dextrose 50% Syringe 12.5 gm, 25 mL, Route: IVP, Drug Form: INJ, Dosing Weight 118.182, kg, PRN, PRN Blood Glucose Results, Start date: 07/23/19 15:56:00 CDT, Duration: 30 day, Stop date: 08/22/19 15:55:00 CDT, 0 Start Date: 07/23/19 Stop Date: 07/24/19 Status: Discontinued Dextrose 50% Syringe 25 gm, 50 mL, Route: IVP, Drug Form: INJ, Dosing Weight 118.182, kg, PRN, PRN Bl ood Glucose Results, Start date: 07/23/19 15:56:00 CDT, Duration: 30 day, Stop d ate: 08/22/19 15:55:00 CDT, 0 Start Date: 07/23/19 Stop Date: 07/24/19 Status: Discontinued docusate 100 mg, 1 cap, Route: PO, Drug form: CAP, BID, Dosing Weight 118.182, kg, Start date: 07/23/19 17:00:00 CDT, Duration: 30 day, Stop date: 08/22/19 9:00:00 CDT, 0 Notes: (Same as: Colace) (Do Not Crush) Start Date: 07/23/19 Stop Date: 07/24/19 Status: Discontinued famotidine 20 mg, 1 tab, Route: PO, Drug form: TAB, Q12H, Start date: 07/24/19 9:00:00 CDT, Duration: 30 day, Stop date: 08/22/19 21:00:00 CDT, 0 Notes: (Same as: Pepcid) Start Date: 07/24/19 Stop Date: 07/24/19 Status: Discontinued famotidine 20 mg, 1 tab, Route: PO, Drug form: TAB, ONCE, Start date: 07/23/19 19:40:00 CDT , Stop date: 07/23/19 19:40:00 CDT, 0 Notes: (Same as: Pepcid) Start Date: 07/23/19 Stop Date: 07/23/19 Status: Completed gabapentin 600 mg, 2 cap, Route: PO, Drug form: CAP, ONCE, Dosing Weight 118.182, kg, (CrCl 30 - 59 ml/min), Start date: 07/23/19 19:33:00 CDT, Stop date: 07/23/19 19:33:00 CDT, 0 Notes: (Same as: Neurontin) Start Date: 07/23/19 Stop Date: 07/23/19 Status: Completed glucagon 1 mg, Route: IM, Drug form: PDR/INJ, PRN, Dosing Weight 111.818, kg, PRN Blood G lucose Results, Start date: 07/24/19 6:56:00 CDT, Duration: 30 day, Stop date: 1 6:55:00 CDT, 0 Start Date: 07/24/19 Stop Date: 07/24/19 Status: Discontinued glucagon 1 mg, Route: IM, Drug form: PDR/INJ, PRN, Dosing Weight 118.182, kg, PRN Blood G lucose Results, Start date: 07/23/19 15:51:00 CDT, Duration: 30 day, Stop date: 08/22/19 15:50:00 CDT, 0 Start Date: 07/23/19 Stop Date: 07/24/19 Status: Deleted glucagon 1 mg, Route: IM, Drug form: PDR/INJ, PRN, Dosing Weight 118.182, kg, PRN Blood G lucose Results, Start date: 07/23/19 15:56:00 CDT, Duration: 30 day, Stop date: 08/22/19 15:55:00 CDT, 0 Start Date: 07/23/19 Stop Date: 07/24/19 Status: Discontinued insulin detemir 60 unit, Route: SUB-Q, Drug form: SOLN, BID, Dosing Weight 111.818, kg, Start da te: 07/24/19 9:00:00 CDT, Duration: 30 day, Stop date: 08/22/19 17:00:00 CDT Start Date: 07/24/19 Stop Date: 07/24/19 Status: Deleted insulin glargine 60 unit, 0.6 mL, Route: SUB-Q, Drug form: SOLN, BID, Start date: 07/24/19 9:00:0 0 CDT, Duration: 30 day, Stop date: 08/22/19 17:00:00 CDT, 0 Notes: (Same as: Lantus)Do not hold insulin without contacting prescriberWASTE: F/P - Black; E - [facility] Trash Bin"single patient use only"Stable for 28 days at room temperature Expires in days from Date Start Date: 07/24/19 Stop Date: 07/24/19 Status: Discontinued insulin lispro 1 unit, 0.01 mL, Route: SUB-Q, Drug form: SOLN, TID-Before Meals, Dosing Weight 111.818, kg, PRN Blood Glucose Results, Start date: 07/24/19 6:56:00 CDT, Durati on: 30 day, Stop date: 08/23/19 6:55:00 CDT, 0 Notes: (Same as: Humalog) Roll in palms of hands gently; Do not shake vigorously . WASTE: F/P - Black; E - [facility] BinStable for 28 days [facility].Expires in days from Date Start Date: 07/24/19 Stop Date: 07/24/19 Status: Discontinued insulin lispro 2 unit, 0.02 mL, Route: SUB-Q, Drug form: SOLN, TID-Before Meals, Dosing Weight 111.818, kg, PRN Blood Glucose Results, Start date: 07/24/19 6:56:00 CDT, Durati on: 30 day, Stop date: 08/23/19 6:55:00 CDT, 0 Notes: (Same as: Humalog) Roll in palms of hands gently; Do not shake vigorously . WASTE: F/P - Black; E - [facility] Trash BinStable for 28 days at room [facility].Expires in days from Date Start Date: 07/24/19 Stop Date: 07/24/19 Status: Discontinued insulin lispro 3 unit, 0.03 mL, Route: SUB-Q, Drug form: SOLN, TID-Before Meals, Dosing Weight 111.818, kg, PRN Blood Glucose Results, Start date: 07/24/19 6:56:00 CDT, Durati on: 30 day, Stop date: 08/23/19 6:55:00 CDT, 0 Notes: (Same as: Humalog) Roll in palms of hands gently; Do not shake vigorously . WASTE: F/P - Black; E - [facility] Trash BinStable for 28 days at room [facility].Expires in days from Date Start Date: 07/24/19 Stop Date: 07/24/19 Status: Discontinued insulin lispro 4 unit, 0.04 mL, Route: SUB-Q, Drug form: SOLN, TID-Before Meals, Dosing Weight 111.818, kg, PRN Blood Glucose Results, Start date: 07/24/19 6:56:00 CDT, Durati on: 30 day, Stop date: 08/23/19 6:55:00 CDT, 0 Notes: (Same as: Humalog) Roll in palms of hands gently; Do not shake vigorously . WASTE: F/P - Black; E - [facility] Trash BinStable for 28 days at room [facility].Expires in days from Date Start Date: 07/24/19 Stop Date: 07/24/19 Status: Discontinued insulin lispro 5 unit, 0.05 mL, Route: SUB-Q, Drug form: SOLN, TID-Before Meals, Dosing Weight 111.818, kg, PRN Blood Glucose Results, Start date: 07/24/19 6:56:00 CDT, Durati on: 30 day, Stop date: 08/23/19 6:55:00 CDT, 0 Notes: (Same as: Humalog) Roll in palms of hands gently; Do not shake vigorously . WASTE: F/P - Black; E - [facility] Trash BinStable for 28 days at room [facility].Expires in days from Date Start Date: 07/24/19 Stop Date: 07/24/19 Status: Discontinued insulin lispro 1 unit, 0.01 mL, Route: SUB-Q, Drug form: SOLN, Bedtime, Dosing Weight 111.818, kg, PRN Blood Glucose Results, Start date: 07/24/19 6:56:00 CDT, Duration: 30 da y, Stop date: 08/23/19 6:55:00 CDT, 0 Notes: (Same as: Humalog) Roll in palms of hands gently; Do not shake vigorously . WASTE: F/P - Black; E - [facility] Trash BinStable for 28 days at room [facility].Expires in days from Date Start Date: 07/24/19 Stop Date: 07/24/19 Status: Discontinued insulin lispro 2 unit, 0.02 mL, Route: SUB-Q, Drug form: SOLN, Bedtime, Dosing Weight 111.818, kg, PRN Blood Glucose Results, Start date: 07/24/19 6:56:00 CDT, Duration: 30 da y, Stop date: 08/23/19 6:55:00 CDT, 0 Notes: (Same as: Humalog) Roll in palms of hands gently; Do not shake vigorously . WASTE: F/P - Black; E - [facility] Trash BinStable for 28 days at room [facility].Expires in days from Date Start Date: 07/24/19 Stop Date: 07/24/19 Status: Discontinued insulin lispro 3 unit, 0.03 mL, Route: SUB-Q, Drug form: SOLN, Bedtime, Dosing Weight 111.818, kg, PRN Blood Glucose Results, Start date: 07/24/19 6:56:00 CDT, Duration: 30 da y, Stop date: 08/23/19 6:55:00 CDT, 0 Notes: (Same as: Humalog) Roll in palms of hands gently; Do not shake vigorously . WASTE: F/P - Black; E - [facility] Trash BinStable for 28 days at room [facility].Expires in days from Date Start Date: 07/24/19 Stop Date: 07/24/19 Status: Discontinued insulin lispro 4 unit, 0.04 mL, Route: SUB-Q, Drug form: SOLN, Bedtime, Dosing Weight 111.818, kg, PRN Blood Glucose Results, Start date: 07/24/19 6:56:00 CDT, Duration: 30 da y, Stop date: 08/23/19 6:55:00 CDT, 0 Notes: (Same as: Humalog) Roll in palms of hands gently; Do not shake vigorously . WASTE: F/P - Black; E - [facility] Trash BinStable for 28 days at room [facility].Expires in days from Date Start Date: 07/24/19 Stop Date: 07/24/19 Status: Discontinued insulin lispro 2 unit, 0.02 mL, Route: SUB-Q, Drug form: SOLN, TID-Before Meals, Dosing Weight 118.182, kg, PRN Blood Glucose Results, Start date: 07/23/19 15:56:00 CDT, Durat ion: 30 day, Stop date: 08/22/19 15:55:00 CDT, 0 Notes: (Same as: Humalog) Roll in palms of hands gently; Do not shake vigorously . WASTE: F/P - Black; E - [facility] BinStable [facility]Ex[facility] in [facility] from Date Start Date: 07/23/19 Stop Date: 07/24/19 Status: Discontinued insulin lispro 4 unit, 0.04 mL, Route: SUB-Q, Drug form: SOLN, TID-Before Meals, Dosing Weight 118.182, kg, PRN Blood Glucose Results, Start date: 07/23/19 15:56:00 CDT, Durat ion: 30 day, Stop date: 08/22/19 15:55:00 CDT, 0 Notes: (Same as: Humalog) Roll in palms of hands gently; Do not shake vigorously . WASTE: F/P - Black; E - [facility] Trash BinStable for 28 days at [facility].Expires in days from Date Start Date: 07/23/19 Stop Date: 07/24/19 Status: Discontinued insulin lispro 6 unit, 0.06 mL, Route: SUB-Q, Drug form: SOLN, TID-Before Meals, Dosing Weight 118.182, kg, PRN Blood Glucose Results, Start date: 07/23/19 15:56:00 CDT, Durat ion: 30 day, Stop date: 08/22/19 15:55:00 CDT, 0 Notes: (Same as: Humalog) Roll in palms of hands gently; Do not shake vigorously . WASTE: F/P - Black; E - [facility] Trash BinStable for 28 days at room [facility].Expires in days from Date Start Date: 07/23/19 Stop Date: 07/24/19 Status: Discontinued insulin lispro 8 unit, 0.08 mL, Route: SUB-Q, Drug form: SOLN, TID-Before Meals, Dosing Weight 118.182, kg, PRN Blood Glucose Results, Start date: 07/23/19 15:56:00 CDT, Durat ion: 30 day, Stop date: 08/22/19 15:55:00 CDT, 0 Notes: (Same as: Humalog) Roll in palms of hands gently; Do not shake vigorously . WASTE: F/P - Black; E - [facility] Tr[facility] BinStable [facility] at [facility].Expires in days from Date Start Date: 07/23/19 Stop Date: 07/24/19 Status: Discontinued insulin lispro 10 unit, 0.1 mL, Route: SUB-Q, Drug form: SOLN, TID-Before Meals, Dosing Weight 118.182, kg, PRN Blood Glucose Results, Start date: 07/23/19 15:56:00 CDT, Durat ion: 30 day, Stop date: 08/22/19 15:55:00 CDT, 0 Notes: (Same as: Humalog) Roll in palms of hands gently; Do not shake vigorously . WASTE: F/P - Black; E - [facility] Tr[facility] BinStable [facility].Expires in days from Date Start Date: 07/23/19 Stop Date: 07/24/19 Status: Discontinued insulin lispro 1 unit, 0.01 mL, Route: SUB-Q, Drug form: SOLN, Bedtime, Dosing Weight 118.182, kg, PRN Blood Glucose Results, Start date: 07/23/19 15:56:00 CDT, Duration: 30 d ay, Stop date: 08/22/19 15:55:00 CDT, 0 Notes: (Same as: Humalog) Roll in palms of hands gently; Do not shake vigorously . WASTE: F/P - Black; E - [facility] Trash BinStable for [facility].Expires in days from Date Start Date: 07/23/19 Stop Date: 07/24/19 Status: Discontinued insulin lispro 2 unit, 0.02 mL, Route: SUB-Q, Drug form: SOLN, Bedtime, Dosing Weight 118.182, kg, PRN Blood Glucose Results, Start date: 07/23/19 15:56:00 CDT, Duration: 30 d ay, Stop date: 08/22/19 15:55:00 CDT, 0 Notes: (Same as: Humalog) Roll in palms of hands gently; Do not shake vigorously . WASTE: F/P - Black; E - [facility] Trash BinStable for 28 days at room [facility].Expires in days from Date Start Date: 07/23/19 Stop Date: 07/24/19 Status: Discontinued insulin lispro 3 unit, 0.03 mL, Route: SUB-Q, Drug form: SOLN, Bedtime, Dosing Weight 118.182, kg, PRN Blood Glucose Results, Start date: 07/23/19 15:56:00 CDT, Duration: 30 d ay, Stop date: 08/22/19 15:55:00 CDT, 0 Notes: (Same as: Humalog) Roll in palms of hands gently; Do not shake vigorously . WASTE: F/P - Black; E - [facility] Trash BinStable for 28 [facility].Expires in days from Date Start Date: 07/23/19 Stop Date: 07/24/19 Status: Discontinued insulin lispro 4 unit, 0.04 mL, Route: SUB-Q, Drug form: SOLN, Bedtime, Dosing Weight 118.182, kg, PRN Blood Glucose Results, Start date: 07/23/19 15:56:00 CDT, Duration: 30 d ay, Stop date: 08/22/19 15:55:00 CDT, 0 Notes: (Same as: Humalog) Roll in palms of hands gently; Do not shake vigorously . WASTE: F/P - Black; E - [facility] Trash BinStable for 28 days at room [facility].Expires in days from Date Start Date: 07/23/19 Stop Date: 07/24/19 Status: Discontinued lisinopril 20 mg, 1 tab, Route: PO, Drug form: TAB, Daily, Dosing Weight 111.818, kg, Start date: 07/24/19 9:00:00 CDT, Duration: 30 day, Stop date: 08/22/19 9:00:00 CDT, 0 Notes: (Same as: Prinivil, Zestril) Start Date: 07/24/19 Stop Date: 07/24/19 Status: Discontinued melatonin 3 mg, 1 tab, Route: PO, Drug form: TAB, Bedtime, Dosing Weight 118.182, kg, PRN Insomnia, Start date: 07/23/19 15:51:00 CDT, Duration: 30 day, Stop date: 15:50:00 CDT, 0 Notes: (Same as: Melatonin) Start Date: 07/23/19 Stop Date: 07/24/19 Status: Discontinued nystatin topical 100,000 units/g powder 1 appl, Route: TOP, TID, Drug form: PWDR, Start date: 07/24/19 13:00:00 CDT, Dur ation: 30 day, Stop date: 08/23/19 9:00:00 CDT, 0 Notes: (Same as:Mycostatin, Nilstat) For external use only. Start Date: 07/24/19 Stop Date: 07/24/19 Status: Discontinued nystatin topical 100,000 units/g powder 1 appl, TOP, TID, APPLY BENEATH BREASTS, X 7 day, # 15 gm, 0 Refill(s), Pharmacy : [facility]/pharmacy #[id number] Start Date: 07/24/19 Stop Date: 07/31/19 Status: Ordered ondansetron 4 mg, 2 mL, Route: IVP, Drug form: INJ, Q8H, Dosing Weight 118.182, kg, PRN Naus ea & Vomiting, Start date: 07/23/19 15:51:00 CDT, Duration: 30 day, Stop date: 08/22/19 15:50:00 CDT, 0 Notes: (Same as: Zacarias) MEDICATION WASTE Product Size: 4 mgProduct Was nathan: ___ mg Start Date: 07/23/19 Stop Date: 07/24/19 Status: Discontinued ranitidine 150 mg, Route: PO, ONCE, Dosing Weight 118.182, kg, Start date: 07/23/19 19:33:0 0 CDT, Stop date: 07/23/19 19:33:00 CDT Start Date: 07/23/19 Stop Date: 07/23/19 Status: Deleted ranitidine 150 mg oral tablet 150 mg, 1 tab, Route: PO, Drug form: TAB, BID, Dosing Weight 111.818, kg, Start date: 07/24/19 9:00:00 CDT, Duration: 30 day, Stop date: 08/22/19 17:00:00 CDT Start Date: 07/24/19 Stop Date: 07/24/19 Status: Deleted Saline Flush 0.9% 10 mL, Route: IVP, Drug Form: INJ, Dosing Weight 118.182, kg, PRN, PRN Line Flus h, Start date: 07/23/19 13:57:00 CDT, Duration: 30 day, Stop date: 08/22/19 13:5 6:00 CDT, 0 Notes: (Same as: BD Posiflush) Start Date: 07/23/19 Stop Date: 07/24/19 Status: Discontinued Saline Flush 0.9% 10 ml, Route: IVP, Drug Form: INJ, Dosing Weight 118.182, kg, Q12H, Start date: 07/23/19 21:00:00 CDT, Duration: 30 day, Stop date: 08/22/19 9:00:00 CDT, 0 Notes: (Same as: BD Posiflush) Start Date: 07/23/19 Stop Date: 07/24/19 Status: Discontinued Saline Flush 0.9% 10 ml, Route: IVP, Drug Form: INJ, Dosing Weight 118.182, kg, PRN, PRN Line Flus h, Start date: 07/23/19 15:54:00 CDT, Duration: 30 day, Stop date: 08/22/19 15:5 3:00 CDT, 0 Notes: (Same as: BD Posiflush) Start Date: 07/23/19 Stop Date: 07/24/19 Status: Discontinued Xarelto 20 mg, 1 tab, Route: PO, Drug form: TAB, Daily, Dosing Weight 118.182, kg, Start date: 07/24/19 9:00:00 CDT, Duration: 30 day, Stop date: 08/22/19 9:00:00 CDT, 0 Notes: (Same as: Xarelto)Administer with food Start Date: 07/24/19 Stop Date: 07/24/19 Status: Discontinued Results Most recent to 1 2 oldest [Reference Range]: Neutrophils # 2.8 K/CMM 4.5 K/CMM [1.5-8.1 K/CMM] (07/24/19 4:13 AM) (07/23/19 2:08 PM) Lymphocytes # 3.3 K/CMM 2.8 K/CMM [1.0-5.5 K/CMM] (07/24/19 4:13 AM) (07/23/19 2:08 PM) Monocytes # [0.0-0.8 0.5 K/CMM 0.5 K/CMM K/CMM] (07/24/19 4:13 AM) (07/23/19 2:08 PM) Eosinophils # 0.1 K/CMM [0.0-0.5 K/CMM] (07/24/19 4:13 AM) Basophils # [0.0-0.2 0.1 K/CMM K/CMM] (07/23/19 2:08 PM) eGFR 95 mL/min/1.73m2 1 80 mL/min/1.73m2 2 *NA* *NA* (07/24/19 4:13 AM) (07/23/19 2:08 PM) AGAP [10.0-20.0 11.4 mEq/L 10.5 mEq/L mEq/L] (07/24/19 4:13 AM) (07/23/19 2:08 PM) Basophils [0.0-1.0 0.5 % 1.3 % %] (07/24/19 4:13 AM) *HI* (07/23/19 2:08 PM) BUN [7-22 mg/dL] 13 mg/dL 12 mg/dL (07/24/19 4:13 AM) (07/23/19 2:08 PM) Calcium Lvl 8.6 mg/dL 8.5 mg/dL [8.5-10.5 mg/dL] (07/24/19 4:13 AM) (07/23/19:08 PM) CHD Risk [3.90-5.80] 5.25 (07/24/19 4:13 AM) Chol [<=199 mg/dL] 189 mg/dL (07/24/19:13 AM) Chloride Lvl [95-109 104 mEq/L 102 mEq/L mEq/L] (07/24/19 4:13 AM) (07/23/19 2:08 PM) CO2 [24-32 mEq/L] 27 mEq/L 29 mEq/L (07/24/19:13 AM) (07/23/19:08 PM) Creatinine Lvl 0.82 mg/dL 0.96 mg/dL [0.50-1.40 mg/dL] (07/24/19:13 AM) (07/23/19:08 PM) Eosinophils [0.0-4.0 1.2 % 0.6 % %] (07/24/19 4:13 AM) (07/23/19 2:08 PM) Folate Lvl [>=3.0 32.6 ng/mL ng/mL] (07/23/19:08 PM) Glucose Lvl [70-99 199 mg/dL 222 mg/dL mg/dL] *HI* *HI* (07/24/19 4:13 AM) (07/23/19 2:08 PM) Hct [36.0-48.0 %] 40.0 % 41.2 % (07/24/19 4:13 AM) (07/23/19 2:08 PM) HDL [>=61 mg/dL] 36 mg/dL *LOW* (07/24/19:13 AM) Hgb [12.0-16.0 g/dL] 13.4 g/dL 13.8 g/dL (07/24/19 4:13 AM) (07/23/19 2:08 PM) Hgb A1C [<=5.6 %] 10.7 % *HI* (07/23/19 2:05 PM) Potassium Lvl 4.4 mEq/L 4.5 mEq/L [3.5-5.1 mEq/L] (07/24/19 4:13 AM) (07/23/19 2:08 PM) LDL (Calculated) 122 mg/dL [<=99 mg/dL] *HI* (07/24/19 4:13 AM) Lymphocytes 49.5 % 35.2 % [20.0-40.0 %] *HI* (07/23/19 2:08 PM) (07/24/19 4:13 AM) MCH [27.0-31.0 pg] 29.7 pg 29.9 pg (07/24/19 4:13 AM) (07/23/19 2:08 PM) MCHC [32.0-36.0 33.5 g/dL 33.4 g/dL g/dL] (07/24/19 4:13 AM) (07/23/19 2:08 PM) MCV [80.0-98.0 fL] 88.6 fL 89.4 fL (07/24/19 4:13 AM) (07/23/19 2:08 PM) Monocytes [2.0-12.0 6.9 % 6.2 % %] (07/24/19 4:13 AM) (07/23/19 2:08 PM) MPV [7.4-10.4 fL] 8.1 fL 7.8 fL (07/24/19 4:13 AM) (07/23/19 2:08 PM) Sodium Lvl [135-145 138 mEq/L 137 mEq/L mEq/L] (07/24/19 4:13 AM) (07/23/19 2:08 PM) Platelet [133-450 341 K/CMM 365 K/CMM K/CMM] (07/24/19 4:13 AM) (07/23/19 2:08 PM) Segs [45.0-75.0 %] 41.9 % 56.7 % *LOW* (07/23/19 2:08 PM) (07/24/19 4:13 AM) RBC [4.20-5.40 4.51 M/CMM 4.61 M/CMM M/CMM] (07/24/19 4:13 AM) (07/23/19 2:08 PM) RDW [11.5-14.5 %] 13.2 % 13.3 % (07/24/19 4:13 AM) (07/23/19 2:08 PM) Trig [<=149 mg/dL] 156 mg/dL *HI* (07/24/19 4:13 AM) Troponin-I <0.02 ng/mL <0.02 ng/mL [0.00-0.40 ng/mL] (07/24/19 4:13 AM) (07/23/19 2:08 PM) UA Bili [Negative] Negative *NA* (07/23/19 4:15 PM) UA Blood [Negative] Negative (07/23/19 4:15 PM) UA Color LYYELLOW *NA* (07/23/19 4:15 PM) UA Glucose [Negative 500 mg/dL mg/dL] *ABN* (07/23/19 4:15 PM) UA Ketones Negative *NA* (07/23/19 4:15 PM) UA Leuk Est Negative [Negative] (07/23/19 4:15 PM) UA Mucus [None Seen Few /LPF /LPF] *NA* (07/23/19 4:15 PM) UA Nitrite Negative [Negative] (07/23/19 4:15 PM) UA pH [5.0-8.0] 5.0 (07/23/19 4:15 PM) UA Protein [Negative Negative mg/dL mg/dL] (07/23/19 4:15 PM) UA Spec Grav 1.013 [<=1.030] (07/23/19 4:15 PM) UA Sq Epi [Few /LPF] Few /LPF *NA* (07/23/19 4:15 PM) UA Turbidity [Clear] Clear (07/23/19 4:15 PM) UA Urobilinogen <=1.0 mg/dL [0.1-1.0 mg/dL] *NA* (07/23/19 4:15 PM) UA WBC [0-5 /HPF] 3 /HPF (07/23/19 4:15 PM) Vitamin B12 Lvl 988 pg/mL [254-1320 pg/mL] (07/23/19 2:08 PM) WBC [3.7-10.4 K/CMM] 6.7 K/CMM 8.0 K/CMM (07/24/19 4:13 AM) (07/23/19 2:08 PM) VLDL 31 *NA* (07/24/19 4:13 AM) 1Result Comment: The eGFR is calculated [...] be mul tiplied by the estimated BMI. Immunizations No data available for this section Procedures Procedure Date Related Diagnosis Body Site Status Tonsillectomy Completed Social History Social History Type Response Alcohol Past Employment/School Status: Disabiltiy . Substance Abuse Use: Past. Type: Marijuana .1 Smoking Status Former smoker; Type: Cigare ttes; Exposure to Tobacco Smoke None; Cigarette Smoking Last 365 Days Yes; Reg Smoking Cessation Counseling No; Tobacco use per day: 20; 2 entered on: 07/23/19 1Patient reports quiting february of 2019 2Patient reprots quitting in january of 2019 Assessment and Plan Extracted from: Title: Neurology Consult Note Author: Lyndsay Cardoza Date: 07/24/19 Patient is a 53-year-old [id number] woman past medical history significant for CVAs x3 with last stroke 2 years ago with residual left-sided weakness, MO, diabetes, PE on Xarelto, hypertension, hyperlipidemia and COPD who presented to [facility] for numbness/tingling of her distal right hand. Numbness/Tingling -- Given history and findings, patient p resentation possibly peripheral neuropathy in the setting of underlying history of uncontrolled DM and recent MRI Brain did not reveal any acute intracranial abnormalities -- Carotid Doppler revealed mild (<50%) stenosis in the right bifurcation, moderate (51-69%) stenosis in the right internal carotid artery and mild (<50%) stenosis in the left bifurcation. -- Echo w/bubble study LV EF 50-55%, no PFO -- continue on home medication of gabape ntin 600mg PO TID -- continue on ASA 81mg PO QD and atorva statin 80mg PO QHS -- Recommend for patient to follow-up [facility] outpatient neurology for further work-up such as EMG/NCS Type 2 diabetes mellitus with hyperglycemia(E11.65) --counseled on importance tight glycemic control and management of BS History of PE -- on Xarelto 20mg PO QPM Dictated by Lyndsay Cardoza PA-C, on behalf of Dr. López Garrido. Patient was seen and examined by Dr. López Garrido with whom the findings and plan were reviewed and discussed. Thank you for including us in this patient's care. Addendum by Patient independently evalu ated at bedside including performing focused history and Satpute, physical, reviewing all [employer] imaging/labs and concur with assessment and plan as outlined López by SHIVAM Umana Do, DO on 07/24/2019 22:40 CDT Extracted from: Title: General Admission H&P Author: Olive Gastelum Date: 07/23/19 MD Impression and Plan 1. Right hand paresthesia 2. History of multiple CVAs 3. CAD 4. Poorly controlled insulin-dependent diabetes mellitus 5. Essential hypertension 6. Hyperlipidemia 7. History of PE Plan Telemetry monitoring. Rule out for acute coronary syndrome by serial troponin Oxygen supplementation to keep Oxygen saturations above 92%. Frequent neuro checks. ECHO MRI without contrast Bilateral carotid Dopplers Xarelto Obtain B12 and folate Physical, Occupational and Speech therapy consultations. Low-salt low-fat cardiac diet once she passes bedside swallow exam. Secondary prevention with aspirin and statin Fasting lipid profile, hemoglobin A1c Neurology consultation for TIA/CVA. Kjnbh-ls-[id number] glucose 3 times daily before meals and at bedtime. Hypoglycemia protocol Insulin sliding scale. Will resume home regimen once confirmed. DVT prophylaxis: Patient is on Xarelto Code full code.
--- OUTSIDE RECORDS SUMMARY | 2020-04-21 17:22 | XMS REPORT | Summary of Care ---
Author Author [facility] Organization [facility] Address Unknown Phone Unavailable Encounter HQ Kirill(FIN) [id number] Date(s): 07/23/18 - 07/23/18 [facility] [address] [place] [address]- Encounter Diagnosis Right axillary hidradenitis (Discharge Diagnosis) - 07/23/18 Hidradenitis suppurativa (Final) - 07/28/18 Nicotine dependence, cigarettes, uncomplicated (Final) - Type 2 diabetes mellitus without complications (Final) - Essential (primary) hypertension (Final) - Personal history of transient ischemic attack (TIA), and cerebral infarction wit hout residual deficits (Final) - Old myocardial infarction (Final) - Discharge Disposition: Home or Self Care Attending Physician: Atul Shea MD Vital Signs Most recent to 1 2 oldest [Reference Range]: Temperature Oral 98.4 DegF 98.4 DegF [96.4-99.1 DegF] (07/23/18 10:53 PM) (07/23/18 8:54 PM) Blood Pressure 155/95 mmHg 138/94 mmHg [90-140/60-90 mmHg] *HI* (07/23/18 8:54 PM) (07/23/18 10:53 PM) Respiratory Rate 18 BRMIN 18 BRMIN [14-20 BRMIN] (07/23/18 10:53 PM) (07/23/18 8:54 PM) Peripheral Pulse 93 bpm 108 bpm Rate [60-100 bpm] (07/23/18 10:53 PM) *HI* (07/23/18 8:54 PM) Weight 116.364 kg (07/23/18 8:54 PM) Problem List Condition Effective Dates Status Health Status Informan t Bipolar(Confirmed) Resolved Bronchitis(Confirmed Resolved ) Diabetes Resolved mellitus(Confirmed) Hypertension(Confirm Resolved ed) Type II diabetes Active mellitus poorly controlled(Confirmed ) Allergies, Adverse Reactions, Alerts Substance Reaction Severity Status penicillins1 Active 1per patient "yeast infections" Medications clindamycin 300 mg, 2 cap, Route: PO, Drug form: CAP, ONCE, Dosing Weight 116.364, kg, Prior ity: STAT, Start date: 07/23/18 22:26:00 CDT, Stop date: 07/23/18 22:26:00 CDT, ABX Indication: Skin/Soft Tissue Infection Notes: (Same As: Cleocin) Start Date: 07/23/18 Stop Date: 07/23/18 Status: Completed clindamycin 150 mg oral capsule 450 mg = 3 cap, PO, TID, X 7 day, # 63 cap, 0 Refill(s) Start Date: 07/23/18 Stop Date: 07/30/18 Status: Completed morphine Sulfate 4 mg, 1 mL, Route: IM, Drug form: SOLN, ONCE, Dosing Weight 116.364, kg, Priorit y: STAT, Start date: 07/23/18 21:08:00 CDT, Stop date: 07/23/18 21:08:00 CDT Notes: (Same as:MORPhine Sulfate) Start Date: 07/23/18 Stop Date: 07/23/18 Status: Completed Tylenol with Codeine #3 oral tablet 1 tab, PO, Q6H, PRN Pain, X 7 day, # 28 tab, 0 Refill(s) Start Date: 07/23/18 Stop Date: 07/30/18 Status: Completed Valium 5 mg, 1 tab, Route: PO, Drug form: TAB, ONCE, Dosing Weight 116.364, kg, Priorit y: STAT, Start date: 07/23/18 21:08:00 CDT, Stop date: 07/23/18 21:08:00 CDT Notes: (Same as: Valium) Start Date: 07/23/18 Stop Date: 07/23/18 Status: Completed Zofran ODT 4 mg, 1 tab, Route: PO, Drug form: TABDIS, ONCE, Dosing Weight 116.364, kg, Prio rity: STAT, Start date: 07/23/18 21:08:00 CDT, Stop date: 07/23/18 21:08:00 CDT Notes: (Same as: Zac[facility] FRANKLIN) Start Date: 07/23/18 Stop Date: 07/23/18 Status: Completed Results No data available for this section Immunizations No data available for this section Procedures No data available for this section Social History Social History Type Response Smoking Status Current every day smoker; T ype: Cigarettes; Exposure to Tobacco Smoke None; Cigarette Smoking Last 365 Days Yes; Re g Smoking Cessation Counseling No; Tobacco use per day: 20; entered on: 07/23/18 Assessment and Plan No data available for this section
--- OUTSIDE RECORDS SUMMARY | 2020-04-21 17:22 | XMS REPORT | Continuity of Care Document ---
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 Name Role Phone [employer] Information Pfenex Unavailable Un available Problems Problem Status Onset Date Classification Date Reported Comments Source Hidradenitis suppurativa 07/23/2018 02/09/2019 [facility] TINGLING RT HAND Active 07/23/2018 [facility] BOIL RIGHT UNDERARM Active 07/23/2018 [facility] STROKE LIKE SYMPTOMS Active 07/23/2018 [facility] Chronic obstructive pulmonary disease wi th (acute) exacerbation 06/30/2018 01/04/2019 [facility] WHEEZING Active 06/16/2018 [facility] ACUTE BRONCHITIS WITH COPD, HYPERGLYCEMI Active 06/16/2018 [facility] Tobacco use 01/04/2019 [facility] Type 2 diabetes mellitus with hyperglycemia 01/04/2019 [facility] Type 2 diabetes mellitus with diabetic polyneuropathy 01/04/2019 [facility] Patient's other noncompliance with medication regimen 01/04/2019 [facility] Hyperlipidemia, unspecified 01/04/2019 [facility] (current) use of anticoagulants 01/04/2019 [facility] Personal history of pulmonary embolism 01/04/2019 [facility] Bipolar (qualifier value) Reso lved Problem [facility] Bronchitis (disorder) Resolved Problem 07/26/2019 [facility] Diabetes mellitus (disorder) R esolved Problem [facility] Hypertensive disorder, systemic arterial (disorder) Resolved Problem 07/26/2019 [facility] Type II diabetes mellitus uncontrolled (finding) Active Problem 07/26/2019 [facility] Nicotine dependence, cigarettes, uncomplicated 02/09/2019 [facility] Type 2 diabetes mellitus without complications 02/09/2019 [facility] Essential (primary) hypertension 02/09/2019 [facility] Personal history of transient ischemic a ttack (TIA), and cerebral infarction without residual deficits 02/09/2019 [facility] Old myocardial infarction 02/09/2019 [facility] CHRONIC OBSTRUCTIVE PULMON DISEASE W ACU Active [facility] HYPERGLYCEMIA, UNSPECIFIED Act lara [facility] UNSPECIFIED SYMPTOMS AND SIGNS INVOLVING Active [facility] Medications Medication Details Route Status Patient Instructions Ordering Provider Order Date Source Aspirin 81 MG Enteric Coated Tablet 81 mg = 1 tab, PO, Daily, # 30 tab, 0 Refill(s) Active 07/25/2019 [facility] Aspirin Notes: Do not crush or chew. (Same As: Ecotrin) No Longer Active 07/25/2019 [facility] Nystatin 100 UNT/MG Topical Powder Notes: (Same as:Mycostatin, Nilstat) For external use only. Inactive 07/24/2019 [facility] Nystatin 100 UNT/MG Topical Powder 1 appl, TOP, TID, APPLY BENEATH BREASTS, X 7 day, # 15 gm, 0 Refill(s), Pharmacy: [facility]/pharmacy #[id number] Active 07/24/2019 [facility] Buspirone Notes: (Same As: BuS par) Inactive 07/24/2019 [facility] insulin detemir 60 unit, Route : SUB-Q, Drug form: SOLN, BID, Dosing Weight 111.818, kg, Start date: 07/24/19 9:00:00 CDT, Duration: 30 day, Stop date: 08/22/19 17:00:00 CDT Inactive 07/24/2019 [facility] Lisinopril Notes: (Same as: Pr inivil, Zestril) Inactive 07/24/2019 [facility] Ranitidine 150 MG Oral Tablet 150 mg, 1 tab, Route: PO, Drug form: TAB, BID, Dosing Weight 111.818, kg, Start date: 07/24/19 9:00:00 CDT, Duration: 30 day, Stop date: 08/22/19 17:00:00 CDT Inactive 07/24/2019 [facility] famotidine Notes: (Same as: Pe pcid) Inactive 07/24/2019 [facility] insulin glargine Notes: (Same as: Lantus) Do not hold insulin without contacting prescriber WASTE: F/P - Black; E - Municipal Trash Bin "single patient use only" Stable for 28 days at room temperature Expires in days from Date Inactive 07/24/2019 [facility] Xarelto Notes: (Same as: Xarel to) Administer with food Inactive 07/24/2019 [facility] Aspirin 325 MG Enteric Coated Tablet Notes: (Do Not Crush) Do not crush or chew. Inactive 07/24/2019 [facility] Dextrose 50% Syringe 12.5 gm, 25 mL, Route: IVP, Drug Form: INJ, Dosing Weight 111.818, kg, PRN, PRN Blood Glucose Results, Start date: 07/24/19 6:56:00 CDT, Duration: 30 day, Stop date: 08/23/19 6:55:00 CDT, 0 Inactive 07/24/2019 [facility] Glucagon 1 mg, Route: IM, Drug form: PDR/INJ, PRN, Dosing Weight 111.818, kg, PRN Blood Glucose Results, Start date: 07/24/19 6:56:00 CDT, Duration: 30 day, Stop date: 08/23/19 6:55:00 CDT, 0 Inactive 07/24/2019 [facility] Insulin Lispro Notes: (Same as : Humalog) Roll in palms of hands gently; Do not shake vigorously. WASTE: F/P - Black; E - Municipal Trash Bin Stable for 28 days at room temperature. Expires in days from Date Inactive 07/24/2019 [facility] atorvastatin Notes: (Same as: Lipitor) No Longer Active 07/24/2019 [facility] Saline Flush 0.9% Notes: (Same as: BD Posiflush) No Longer Active 07/24/2019 [facility] famotidine Notes: (Same as: Pe pcid) Inactive 07/24/2019 [facility] gabapentin Notes: (Same as: Ne urontin) Inactive 07/24/2019 [facility] Ranitidine 150 mg, Route: PO, ONCE, Dosing Weight 118.182, kg, Start date: 07/23/19 19:33:00 CDT, Stop date: 07/23/19 19:33:00 CDT Inactive 07/24/2019 [facility] acetaminophen-codeine #3 Notes : Do not exceed 4gm/day of acetaminophen. (Same as: Tylenol with Codeine # 3) Inactive 07/24/2019 [facility] Docusate Notes: (Same as: Cola ce) (Do Not Crush) No Longer Active 07/23/2019 [facility] Albuterol 0.83 MG/ML Inhalant Solution Notes: SEE RT DOCUMENTATION (Same as: Proventil) No Longer Active 07/23/2019 [facility] Dextrose 50% Syringe 12.5 gm, 25 mL, Route: IVP, Drug Form: INJ, Dosing Weight 118.182, kg, PRN, PRN Blood Glucose Results, Start date: 07/23/19 15:56:00 CDT, Duration: 30 day, Stop date: 08/22/19 15:55:00 CDT, 0 No Longer Active 07/23/2019 [facility] Glucagon 1 mg, Route: IM, Drug form: PDR/INJ, PRN, Dosing Weight 118.182, kg, PRN Blood Glucose Results, Start date: 07/23/19 15:56:00 CDT, Duration: 30 day, Stop date: 08/22/19 15:55:00 CDT, 0 No Longer Active 07/23/2019 [facility] Insulin Lispro Notes: (Same as : Humalog) Roll in palms of hands gently; Do not shake vigorously. WASTE: F/P - Black; E - Municipal Trash Bin Stable for 28 days at room temperature. Expires in days from Date No Longer Active 07/23/2019 [facility] Saline Flush 0.9% Notes: (Same as: BD Posiflush) No Longer Active 07/23/2019 [facility] Dextrose 50% Syringe 12.5 gm, 25 mL, Route: IVP, Drug Form: INJ, Dosing Weight 118.182, kg, PRN, PRN Blood Glucose Results, Start date: 07/23/19 15:51:00 CDT, Duration: 30 day, Stop date: 08/22/19 15:50:00 CDT, 0 No Longer Active 07/23/2019 [facility] Glucagon 1 mg, Route: IM, Drug form: PDR/INJ, PRN, Dosing Weight 118.182, kg, PRN Blood Glucose Results, Start date: 07/23/19 15:51:00 CDT, Duration: 30 day, Stop date: 08/22/19 15:50:00 CDT, 0 No Longer Active 07/23/2019 [facility] Ondansetron Notes: (Same as: Keily hernandez) MEDICATION WASTE Product Size: 4 mg Product Wasted: ___ mg No Longer Active 07/23/2019 [facility] Melatonin Notes: (Same as: Lolly atonin) No Longer Active 07/23/2019 [facility] Acetaminophen Notes: Do not ex ceed 4 gm/day. (Same as: Tylenol) No Longer Active 07/23/2019 [facility] Aspirin Notes: Take with food. Inactive 07/23/2019 [facility] Saline Flush 0.9% Notes: (Same as: BD Posiflush) No Longer Active 07/23/2019 [facility] Acetaminophen 300 MG / Codeine Phosphate 30 MG Oral Tablet [Tylenol with Codeine #3] 1 tab, PO, Q6H, PRN Pain, X 7 day, # 28 tab, 0 Refill(s) No Longer Active 07/24/2018 [facility] clindamycin 150 mg oral capsule 450 mg = 3 cap, PO, TID, X 7 day, # 63 cap, 0 Refill(s) No Longer Active 07/24/2018 [facility] Clindamycin Notes: (Same As: C leocin) Inactive 07/24/2018 [facility] Zofran ODT Notes: (Same as: Zo shemar ODT) Inactive 07/24/2018 [facility] Morphine Notes: (Same as:MORPh ine Sulfate) Inactive 07/24/2018 [facility] Valium Notes: (Same as: Valium) Inactive 07/24/2018 [facility] 3 ML Insulin, Aspart, Human 100 UNT/ML P en Injector [NovoLog] 15 unit, SUB-Q, TID-Before Meals, # 10 m L, 0 Refill(s), Pharmacy: [facility]/pharmacy #[id number] Active 06/17/2018 [facility] predniSONE 10 mg oral tablet S ee Instructions, 4 tabs po daily for 3 days, then 3 tabs daily for 3 days, then 2 tab po daily x3 days, then 1 tab po daily for 3 days, # 28 tab, 0 Refill(s), Pharmacy: [facility]/pharmacy #[id number] No Longer Active 06/17/2018 [facility] 3 ML insulin detemir 100 UNT/ML Prefille d Syringe [Levemir] 60 unit, SUB-Q, BID, # 10 mL, 0 Refill(s ), Pharmacy: [facility]/pharmacy #[id number] Active 06/17/2018 [facility] Albuterol 0.833 MG/ML / Ipratropium Brom viktoriya 0.167 MG/ML Inhalant Solution [DuoNeb] 3 mL, NEB, QID, # 90 mL, 0 Refill(s), Ph armacy: [facility]/pharmacy #[id number] Active 06/17/2018 [facility] Insulin Glargine 100 UNT/ML Injectable S olution [Lantus] Notes: (Same as: Lantus) Do not hold ins ulin without contacting prescriber WASTE: F/P - Black; E - Municipal Trash Bin "single patient use only" Inactive 06/17/2018 [facility] Albuterol 0.833 MG/ML / Ipratropium Brom viktoriya 0.167 MG/ML Inhalant Solution 3 ml, Route: NEB, Drug Form: SOLN, Dosin g Weight 115.909, kg, ONCE, NOW, Start date: 06/17/18 2:09:00 CDT, Stop date: 06/17/18 2:09:00 CDT, Pediatric Dosing Inactive 06/17/2018 [facility] insulin glargine Notes: (Same as: Lantus) Do not hold insulin without contacting prescriber WASTE: F/P - Black; E - Municipal Trash Bin "single patient use only" No Longer Active 06/17/2018 [facility] atorvastatin Notes: (Same as: Lipitor) No Longer Active 06/17/2018 [facility] Seroquel 800 mg, Route: PO, Dr ug form: TAB, Bedtime, Dosing Weight 104.545, kg, Start date: 06/16/18 21:00:00 CDT, Duration: 30 day, Stop date: 07/15/18 21:00:00 CDT Inactive 06/17/2018 [facility] famotidine Notes: (Same as: Pe pcid) No Longer Active 06/17/2018 [facility] budesonide-formoterol 160 mcg-4.5 mcg/in h inhalation aerosol with adapter Notes: (Same as: Symbicort) WASTE: Aero alyson - Return to Pharmacy No Longer Active 06/17/2018 [facility] Humalog Notes: (Same as: Humal og ) Roll in palms of hands gently; Do not shake `vigorously. "Single Patient Use Only " WASTE: F/P - Black; E - Municipal Trash Bin Stable for 28 days at room temperature. Expires in days from Date Inactive 06/16/2018 [facility] NovoLOG FlexPen 15 unit, Route : SUB-Q, Drug form: SOLN, BID-After Meals, Dosing Weight 104.545, kg, Start date: 06/16/18 17:30:00 CDT, Duration: 30 day, Stop date: 07/16/18 8:30:00 CDT Inactive 06/16/2018 [facility] Advair Diskus 250 mcg-50 mcg inhalation powder 1 puff, Route: INHALATION, Drug Form: AERO, Dosing Weight 104.545, kg, BID, Start date: 06/16/18 17:00:00 CDT, Duration: 30 day, Stop date: 07/16/18 9:00:00 CDT Inactive 06/16/2018 [facility] Xarelto Notes: (Same as: Xarel to) Administer with food No Longer Active 06/16/2018 [facility] Chantix Notes: Same as Chantix No Longer Active 06/16/2018 [facility] Ranitidine 150 MG Oral Tablet 150 mg, 1 tab, Route: PO, Drug form: TAB, BID, Dosing Weight 104.545, kg, Start date: 06/16/18 17:00:00 CDT, Duration: 30 day, Stop date: 07/16/18 9:00:00 CDT Inactive 06/16/2018 [facility] normal saline 0.9% IV 1,000 mL 1,000 mL, Rate: 100 ml/hr, Infuse over: 10 hr, Route: IV, Dosing Weight 115.909 kg, Total Volume: 1,000, Start date: 06/16/18 16:55:00 CDT, Duration: 30 day, Stop date: 07/16/18 16:54:00 CDT, 2.4, m2 No Longe r Active 06/16/2018 [facility] Insulin Lispro Notes: (Same as : Humalog ) Roll in palms of hands gently; Do not shake `vigorously. "Single Patient Use Only " WASTE: F/P - Black; E - Municipal Trash Bin Stable for 28 days at room temp erature. Expires in days from Date No Longer Active 06/16/2018 [facility] Prednisone Notes: Take with fo od. No Longer Active 06/16/2018 [facility] insulin detemir 25 unit, Route : SUB-Q, Drug form: SOLN, QPM (Insulin), Dosing Weight 104.545, kg, Start date: 06/16/18 16:30:00 CDT, Duration: 30 day, Stop date: 07/15/18 16:30:00 CDT Inactive 06/16/2018 [facility] Insulin Lispro Notes: (Same as : Humalog ) Roll in palms of hands gently; Do not shake `vigorously. "Single Patient Use Only " WASTE: F/P - Black; E - Municipal Trash Bin Stable for 28 days at room temp erature. Expires in days from Date No Longer Active 06/16/2018 [facility] Glucagon 1 mg, Route: IM, Drug form: PDR/INJ, PRN, Dosing Weight 104.545, kg, PRN Blood Glucose Results, Start date: 06/16/18 13:03:00 CDT, Duration: 30 day, Stop date: 07/16/18 13:02:00 CDT No Longer Active 06/16/2018 [facility] Dextrose 50% Syringe 25 gm, 50 mL, Route: IVP, Drug Form: INJ, Dosing Weight 104.545, kg, PRN, PRN Blood Glucose Results, Start date: 06/16/18 13:03:00 CDT, Duration: 30 day, Stop date: 07/16/18 13:02:00 CDT No Longer Active 06/16/2018 [facility] Buspirone Notes: (Same As: BuS par) Inactive 06/16/2018 [facility] Buspirone 15mg Buspirone 15mg, 1 tab, Drug form: MISC, Route: PO, TID, 06/16/18 13:00:00 CDT, Duration: 30 day, Stop date: 07/16/18 9:00:00 CDT No Longer Active 06/16/2018 [facility] Insulin Lispro Notes: (Same as : Humalog ) Roll in palms of hands gently; Do not shake `vigorously. "Single Patient Use Only " WASTE: F/P - Black; E - Municipal Trash Bin Stable for 28 days at room temp erature. Expires in days from Date Inactive 06/16/2018 [facility] QUEtiapine Notes: (Same as: SE ROquel) No Longer Active 06/16/2018 [facility] methylPREDNISolone SODium SUCCinate Notes: (Same as:Solu-MEDROL, A-Methapred) Inactive 06/16/2018 [facility] Insulin Glargine 100 UNT/ML Injectable S olution [Lantus] Notes: (Same as: Lantus) Do not hold ins ulin without contacting prescriber WASTE: F/P - Black; E - Municipal Trash Bin "single patient use only" Inactive 06/16/2018 [facility] Acetaminophen 300 MG / Codeine Phosphate 30 MG Oral Tablet [Tylenol with Codeine #3] Notes: Do not exceed 4gm/day of acetamin ophen. (Same as: Tylenol with Codeine # 3) No Longer Active 06/16/2018 [facility] Januvia Notes: (Same as: Januv ia) No Longer Active 06/16/2018 [facility] metoprolol tartrate Notes: (Sa me as: Lopressor) No Longer Active 06/16/2018 [facility] 3 ML insulin detemir 100 UNT/ML Prefille d Syringe [Levemir] 25 unit, SUB-Q, QPM (Insulin) No Longer Active 06/16/2018 [facility] 3 ML Insulin, Aspart, Human 100 UNT/ML P en Injector [NovoLog] 15 unit, SUB-Q, BID-After Meals No Longer Active 06/16/2018 [facility] Chantix 1 mg oral tablet 1 mg = 1 tab, PO, BID Active 06/16/2018 [facility] metoprolol tartrate 25 mg oral tablet 25 mg = 1 tab, PO, BID Active 06/16/2018 [facility] atorvastatin 40 mg oral tablet 40 mg = 1 tab, PO, QPM Active 06/16/2018 [facility] lisinopril 20 mg oral tablet 2 0 mg = 1 tab, PO, Daily No Longer Active 06/16/2018 [facility] gabapentin 600 MG Oral Tablet 600 mg = 1 tab, PO, TID Active 06/16/2018 [facility] sitagliptin 100 MG Oral Tablet [Januvia] 100 mg = 1 tab, PO, Daily Active 06/16/2018 [facility] rivaroxaban 20 MG Oral Tablet [Xarelto] 20 mg = 1 tab, PO, Daily Active 06/16/2018 [facility] Advair Diskus 250 mcg-50 mcg inhalation powder 1 puff, INHALATION, BID Active 06/16/2018 [facility] Acetaminophen 300 MG / Codeine Phosphate 30 MG Oral Tablet [Tylenol with Codeine #3] 1 tab, PO, Q6H, PRN Pain Score 4-6 Active 06/16/2018 [facility] Ranitidine 150 MG Oral Tablet 150 mg = 1 tab, PO, BID Active 06/16/2018 [facility] quetiapine 400 MG Oral Tablet [Seroquel] 800 mg = 2 tab, PO, Bedtime Active 06/16/2018 [facility] busPIRone 15 mg oral tablet 15 mg = 1 tab, PO, TID Active 06/16/2018 [facility] lisinopril 20 mg oral tablet 2 0 mg = 1 tab, PO, Daily Active 06/16/2018 [facility] Insulin Glargine Notes: (Same as: Lantus) Do not hold insulin without contacting prescriber WASTE: F/P - Black; E - Municipal Trash Bin "single patient use only" Inactive 06/16/2018 [facility] Albuterol 0.833 MG/ML / Ipratropium Brom viktoriya 0.167 MG/ML Inhalant Solution [DuoNeb] Notes: (Same as: Duoneb) No Longer Active 06/16/2018 [facility] Famotidine 20 MG Oral Tablet [Pepcid] Notes: (Same as: Pepcid) Inactive 06/16/2018 [facility] Lisinopril Notes: (Same as: Pr inivil, Zestril) No Longer Active 06/16/2018 [facility] Furosemide 20 MG Oral Tablet [Lasix] Notes: (Same as: Lasix) May cause GI upset. Give with food or milk. No Longer Active 06/16/2018 [facility] Brovana Notes: SEE RT DOCUMENT ATION Same as Brovana No Longer Active 06/16/2018 [facility] gabapentin 600 MG Oral Tablet [Neurontin] Notes: (Same as: Neurontin) No Longer Activ e 06/16/2018 [facility] Budesonide Notes: (Same As: Pu lmicort) No Longer Active 06/16/2018 [facility] Insulin Lispro Notes: (Same as : Humalog ) Roll in palms of hands gently; Do not shake `vigorously. "Single Patient Use Only " WASTE: F/P - Black; E - Municipal Trash Bin Stable for 28 days at room temp erature. Expires in days from Date Inactive 06/16/2018 [facility] Glucagon 1 mg, Route: IM, Drug form: PDR/INJ, PRN, Dosing Weight 104.545, kg, PRN Blood Glucose Results, Start date: 06/16/18 4:05:00 CDT, Duration: 30 day, Stop date: 07/16/18 4:04:00 CDT Inactive 06/16/2018 [facility] Dextrose 50% Syringe 25 gm, 50 mL, Route: IVP, Drug Form: INJ, Dosing Weight 104.545, kg, PRN, PRN Blood Glucose Results, Start date: 06/16/18 4:05:00 CDT, Duration: 30 day, Stop date: 07/16/18 4:04:00 CDT Inactive 06/16/2018 [facility] Acetaminophen Notes: Do not ex ceed 4 gm/day. (Same as: Tylenol) No Longer Active 06/16/2018 [facility] Ondansetron Notes: (Same as: Keily hernandez) MEDICATION WASTE Product Size: 4 mg Product Wasted: ___ mg No Longer Active 06/16/2018 [facility] Sodium Chloride 0.9% (Bolus) IV 1,000 mL, Infuse Over: 1 hr, Route: IV, ONCE, Priority: STAT, Dosing Weight 104.545 kg, Start date: 06/16/18 3:49:00 CDT, Stop date: 06/16/18 3:49:00 CDT Inactive 06/16/2018 [facility] Albuterol 0.83 MG/ML Inhalant Solution 2.49 mg, Route: NEB, Drug form: SOLN, ONCE, Dosing Weight 104.545, kg, Priority: STAT, Start date: 06/16/18 3:49:00 CDT, Stop date: 06/16/18 3:49:00 CDT Inactive 06/16/2018 [facility] Azithromycin 500 mg, Route: IV PB, ONCE, Dosing Weight 104.545, kg, Priority: STAT, Start date: 06/16/18 3:46:00 CDT, Stop date: 06/16/18 3:46:00 CDT, ABX Indication: Pneumonia Inactive 06/16/2018 [facility] Solu-Medrol 125 mg, Route: IVP , ONCE, Dosing Weight 104.545, kg, Priority: STAT, Start date: 06/16/18 3:46:00 CDT, Stop date: 06/16/18 3:46:00 CDT Inactive 06/16/2018 [facility] Insulin regular 10 unit, Route : IV, ONCE, Dosing Weight 104.545, kg, Priority: STAT, Start date: 06/16/18 3:16:00 CDT, Stop date: 06/16/18 3:16:00 CDT Inactive 06/16/2018 [facility] Albuterol 0.833 MG/ML / Ipratropium Brom viktoriya 0.167 MG/ML Inhalant Solution [DuoNeb] 6 mL, Route: NEB, Drug Form: SOLN, Dosin g Weight 104.545, kg, ONCE, Start date: 06/16/18 2:37:00 CDT, Stop date: 06/16/18 2:37:00 CDT Inactive 06/16/2018 [facility] Sodium Chloride 0.9% (Bolus) IV 1,000 mL, 1000 ml/hr, Infuse Over: 1 hr, Route: IV, 1,000, Drug form: INJ, ONCE, Priority: STAT, Dosing Weight 104.545 kg, Start date: 06/16/18 1:59:00 CDT, Stop date: 06/16/18 1:59:00 CDT Inactive 06/16/2018 [facility] Allergies, Adverse Reactions, Alerts Substance Category Reaction Severity Reaction type Status Date Reported Comments Source penicillins<sup>1</sup> Assert ion Drug aller gy Active per patient "yeast infections" [facility] Immunizations No Data Provided for This Section Results Order Name Results Value Reference Range Date Interpretation Comments Source CARDIAC ENZYMES Troponin-I <0.02 0.00 - 0.40 07/24/2019 [facility] ELECTROLYTES AGAP 11.4 10.0 - 20.0 07/24/2019 [facility] ELECTROLYTES Glucose Lvl 199 70 - 99 07/24/2019 [facility] ELECTROLYTES BUN 13 7 - 22 07/24/2019 [facility] ELECTROLYTES Creatinine Lvl 0.8 2 0.50 - 1.40 07/24/2019 [facility] ELECTROLYTES Sodium Lvl 138 135 - 145 07/24/2019 [facility] ELECTROLYTES Potassium Lvl 4.4 3.5 - 5.1 07/24/2019 [facility] ELECTROLYTES Chloride Lvl 104 95 - 109 07/24/2019 [facility] ELECTROLYTES CO2 27 24 - 32 07/24/2019 [facility] ELECTROLYTES Calcium Lvl 8.6 8.5 - 10.5 07/24/2019 [facility] ELECTROLYTES eGFR 95 07/24/2019 Result Comment: The eGFR is calculated using the [...] from the National Kidney Disease Education Program (NKDEP) which additionally recommends that when the eGFR is used in patients with extremes of body mass index for purposes of drug dosing, the eGFR should be multiplied by the estimated BMI. [facility] HEMATOLOGY WBC 6.7 3.7 - 10.4 07/24/2019 [facility] HEMATOLOGY RBC 4.51 4.20 - 5.40 07/24/2019 [facility] HEMATOLOGY Hgb 13.4 12.0 - 16.0 07/24/2019 [facility] HEMATOLOGY Hct 40.0 36.0 - 48.0 07/24/2019 [facility] HEMATOLOGY MCV 88.6 80.0 - 98.0 07/24/2019 [facility] HEMATOLOGY MCH 29.7 27.0 - 31.0 07/24/2019 [facility] HEMATOLOGY MCHC 33.5 32.0 - 36.0 07/24/2019 [facility] HEMATOLOGY RDW 13.2 11.5 - 14.5 07/24/2019 [facility] HEMATOLOGY Platelet 341 133 - 450 07/24/2019 [facility] HEMATOLOGY MPV 8.1 7.4 - 10.4 07/24/2019 [facility] HEMATOLOGY Segs 41.9 45.0 - 75.0 07/24/2019 [facility] HEMATOLOGY Lymphocytes 49.5 20.0 - 40.0 07/24/2019 [facility] HEMATOLOGY Monocytes 6.9 2.0 - 12.0 07/24/2019 [facility] HEMATOLOGY Eosinophils 1.2 0.0 - 4.0 07/24/2019 [facility] HEMATOLOGY Basophils 0.5 0.0 - 1.0 07/24/2019 [facility] HEMATOLOGY Neutrophils # 2.8 1.5 - 8.1 07/24/2019 [facility] HEMATOLOGY Lymphocytes # 3.3 1.0 - 5.5 07/24/2019 [facility] HEMATOLOGY Monocytes # 0.5 0.0 - 0.8 07/24/2019 [facility] HEMATOLOGY Eosinophils # 0.1 0.0 - 0.5 07/24/2019 [facility] [facility] CHD Risk 5.25 3.90 - 5.80 07/24/2019 [facility] LIPIDS Trig 156 <=149 mg/dL 07/24/2019 [facility] LIPIDS Chol 189 <=199 mg/dL 07/24/2019 [facility] LIPIDS HDL 36 >=61 mg/dL 07/24/2019 [facility] LIPIDS LDL (Calculated) 122 <=99 mg/dL 07/24/2019 [facility] LIPIDS VLDL 31 07/24/2019 [facility] URINE AND STOOL UA Turbidity Clear (07/23/19 4:15 PM) Clear 07/23/2019 [facility] URINE AND STOOL UA Spec Grav 1.013 <=1.030 07/23/2019 [facility] URINE AND STOOL UA pH 5.0 5.0 - 8.0 07/23/2019 [facility] URINE AND STOOL UA Protein Negative mg/dL Negative mg/dL 07/23/2019 [facility] URINE AND STOOL UA Glucose 500 mg/dL Negative mg/dL 07/23/2019 [facility] URINE AND STOOL UA Bili Negative *NA* (07/23/19 4:15 PM) Negative 07/23/2019 [facility] URINE AND STOOL UA Blood Negative (07/23/19 4:15 PM) Negative 07/23/2019 [facility] URINE AND STOOL UA Nitrite Negative (07/23/19 4:15 PM) Negative 07/23/2019 [facility] URINE AND STOOL UA Leuk Est Negative (07/23/19 4:15 PM) Negative 07/23/2019 [facility] URINE AND STOOL UA Sq Epi Few /LPF Few /LPF 07/23/2019 [facility] URINE AND STOOL UA WBC 3 0 - 5 07/23/2019 [facility] URINE AND STOOL UA Mucus Few /LPF None Seen /LPF 07/23/2019 [facility] URINE AND STOOL UA Color LYYELLOW 07/23/2019 [facility] URINE AND STOOL UA Ketones Negative 07/23/2019 [facility] URINE AND STOOL UA Urobilinogen <=1.0 mg/dL 0.1 - 1.0 07/23/2019 [facility] ANEMIA STUDY Vitamin B12 Lvl 988 254 - 1320 07/23/2019 [facility] ANEMIA STUDY Folate Lvl 32.6 >=3.0 ng/mL 07/23/2019 [facility] CARDIAC ENZYMES Troponin-I <0.02 0.00 - 0.40 07/23/2019 [facility] ELECTROLYTES AGAP 10.5 10.0 - 20.0 07/23/2019 [facility] ELECTROLYTES Glucose Lvl 222 70 - 99 07/23/2019 [facility] ELECTROLYTES BUN 12 7 - 22 07/23/2019 [facility] ELECTROLYTES Sodium Lvl 137 135 - 145 07/23/2019 [facility] ELECTROLYTES Potassium Lvl 4.5 3.5 - 5.1 07/23/2019 [facility] ELECTROLYTES Chloride Lvl 102 95 - 109 07/23/2019 [facility] ELECTROLYTES CO2 29 24 - 32 07/23/2019 [facility] ELECTROLYTES Calcium Lvl 8.5 8.5 - 10.5 07/23/2019 [facility] ELECTROLYTES Creatinine Lvl 0.9 6 0.50 - 1.40 07/23/2019 [facility] ELECTROLYTES eGFR 80 07/23/2019 Result Comment: The eGFR is calculated using the [...] from the National Kidney Disease Education Program (NKDEP) which additionally recommends that when the eGFR is used in patients with extremes of body mass index for purposes of drug dosing, the eGFR should be multiplied by the estimated BMI. [facility] HEMATOLOGY WBC 8.0 3.7 - 10.4 07/23/2019 [facility] HEMATOLOGY RBC 4.61 4.20 - 5.40 07/23/2019 [facility] HEMATOLOGY Hgb 13.8 12.0 - 16.0 07/23/2019 [facility] HEMATOLOGY Hct 41.2 36.0 - 48.0 07/23/2019 [facility] HEMATOLOGY MCV 89.4 80.0 - 98.0 07/23/2019 [facility] HEMATOLOGY MCH 29.9 27.0 - 31.0 07/23/2019 [facility] HEMATOLOGY MCHC 33.4 32.0 - 36.0 07/23/2019 [facility] HEMATOLOGY RDW 13.3 11.5 - 14.5 07/23/2019 [facility] HEMATOLOGY Platelet 365 133 - 450 07/23/2019 [facility] HEMATOLOGY MPV 7.8 7.4 - 10.4 07/23/2019 [facility] HEMATOLOGY Segs 56.7 45.0 - 75.0 07/23/2019 [facility] HEMATOLOGY Lymphocytes 35.2 20.0 - 40.0 07/23/2019 [facility] HEMATOLOGY Monocytes 6.2 2.0 - 12.0 07/23/2019 [facility] HEMATOLOGY Eosinophils 0.6 0.0 - 4.0 07/23/2019 [facility] HEMATOLOGY Basophils 1.3 0.0 - 1.0 07/23/2019 [facility] HEMATOLOGY Neutrophils # 4.5 1.5 - 8.1 07/23/2019 [facility] HEMATOLOGY Lymphocytes # 2.8 1.0 - 5.5 07/23/2019 [facility] HEMATOLOGY Monocytes # 0.5 0.0 - 0.8 07/23/2019 [facility] HEMATOLOGY Basophils # 0.1 0.0 - 0.2 07/23/2019 [facility] SPECIAL CHEMISTRY Hgb A1C 10.7 <=5.6 % 07/23/2019 [facility] CHEM PANEL Magnesium Lvl 2.3 1.8 - 2.4 06/17/2018 [facility] CHEM PANEL eGFR 74 06/17/2018 Result Comment: The eGFR is calculated using the [...] from the National Kidney Disease Education Program (NKDEP) which additionally recommends that when the eGFR is used in patients with extremes of body mass index for purposes of drug dosing, the eGFR should be multiplied by the estimated BMI. [facility] CHEM PANEL Chloride Lvl 103 95 - 109 06/17/2018 [facility] CHEM PANEL CO2 25 24 - 32 06/17/2018 [facility] CHEM PANEL Calcium Lvl 9.1 8.5 - 10.5 06/17/2018 [facility] CHEM PANEL AGAP 12.7 10.0 - 20.0 06/17/2018 [facility] CHEM PANEL Glucose Lvl 360 70 - 99 06/17/2018 [facility] CHEM PANEL BUN 22 7 - 22 06/17/2018 [facility] CHEM PANEL Creatinine Lvl 1.02 0.50 - 1.40 06/17/2018 [facility] CHEM PANEL Sodium Lvl 136 135 - 145 06/17/2018 [facility] CHEM PANEL Potassium Lvl 4.7 3.5 - 5.1 06/17/2018 [facility] SPECIAL CHEMISTRY Hgb A1C 12.7 <=5.6 % 06/17/2018 [facility] HEMATOLOGY Monocytes 11.6 2.0 - 12.0 06/16/2018 [facility] HEMATOLOGY Segs 55.9 45.0 - 75.0 06/16/2018 [facility] HEMATOLOGY Eosinophils 0.7 0.0 - 4.0 06/16/2018 [facility] HEMATOLOGY Lymphocytes 31.1 20.0 - 40.0 06/16/2018 [facility] HEMATOLOGY Neutrophils # 3.3 1.5 - 8.1 06/16/2018 [facility] HEMATOLOGY Basophils 0.7 0.0 - 1.0 06/16/2018 [facility] HEMATOLOGY Monocytes # 0.7 0.0 - 0.8 06/16/2018 [facility] HEMATOLOGY Lymphocytes # 1.8 1.0 - 5.5 06/16/2018 [facility] HEMATOLOGY RDW 13.5 11.5 - 14.5 06/16/2018 [facility] HEMATOLOGY MCHC 33.3 32.0 - 36.0 06/16/2018 [facility] HEMATOLOGY Platelet 269 133 - 450 06/16/2018 [facility] HEMATOLOGY MPV 8.3 7.4 - 10.4 06/16/2018 [facility] HEMATOLOGY WBC 5.9 3.7 - 10.4 06/16/2018 [facility] HEMATOLOGY Hct 39.7 36.0 - 48.0 06/16/2018 [facility] HEMATOLOGY Hgb 13.2 12.0 - 16.0 06/16/2018 [facility] HEMATOLOGY RBC 4.44 4.20 - 5.40 06/16/2018 [facility] HEMATOLOGY MCH 29.7 27.0 - 31.0 06/16/2018 [facility] HEMATOLOGY MCV 89.5 80.0 - 98.0 06/16/2018 [facility] CARDIAC ENZYMES BNP 3 <=100 pg/mL 06/16/2018 [facility] CARDIAC ENZYMES CK MB 1.2 0.5 - 3.6 06/16/2018 [facility] CARDIAC ENZYMES Troponin-I <0.02 0.00 - 0.40 06/16/2018 [facility] CARDIAC ENZYMES Total CK 67 12 - 191 06/16/2018 [facility] CARDIAC ENZYMES CK MB Index 1.8 0.0 - 2.5 06/16/2018 [facility] CHEM PANEL eGFR 62 06/16/2018 Result Comment: The eGFR is calculated using the [...] from the National Kidney Disease Education Program (NKDEP) which additionally recommends that when the eGFR is used in patients with extremes of body mass index for purposes of drug dosing, the eGFR should be multiplied by the estimated BMI. [facility] CHEM PANEL AGAP 14.5 10.0 - 20.0 06/16/2018 [facility] CHEM PANEL Calcium Lvl 9.1 8.5 - 10.5 06/16/2018 [facility] CHEM PANEL CO2 27 24 - 32 06/16/2018 [facility] CHEM PANEL Potassium Lvl 4.5 3.5 - 5.1 06/16/2018 [facility] CHEM PANEL Chloride Lvl 99 95 - 109 06/16/2018 [facility] CHEM PANEL Sodium Lvl 136 135 - 145 06/16/2018 [facility] CHEM PANEL Creatinine Lvl 1.18 0.50 - 1.40 06/16/2018 [facility] CHEM PANEL BUN 17 7 - 22 06/16/2018 [facility] CHEM PANEL Glucose Lvl 487 70 - 99 06/16/2018 Result Comment: Critical Result(s) woodson d to samira at 06/16/2018 03:14 by beth. Read back OK. [facility] Pathology Reports No Data Provided for This Section Diagnostic Reports Report Value Date Source Brain wo contrast MRI Clinical Indication: Right arm tingling. Comparison: Brain CT 07/23/2019 TECHNIQUE: Multiplanar multisequence MR imaging of the brain was performed without intravenous contrast. FINDINGS: The exam is degraded by motion artifacts. No abnormal restricted diffusion. No mass effect or midline shift. No acute hydrocephalus. No abnormal signal in the extra-axial spaces. Chronic infarctions are present in the right insula and striatocapsular region, right frontal lobe, left corpus callosum and left cingulate gyrus/anterior parasagittal frontal lobe. These areas of chronic hemorrhage persisted with hemosiderin deposition. In addition, there are small chronic infarctions in the cerebellar hemispheres (series 7, images 12 and 10). IMPRESSION: No acute infarction or acute intracranial abnormality. SL: [id number] 07/24/2019 [facility] Chest 1view DX Clinical Indica tion: Right arm tingling, history of stroke. Comparison: Chest x-ray 06/16/2018 Technique: Frontal view of the chest. Findings: Lines and Tubes: None. Lungs and Pleura: Left costophrenic angle is incompletely imaged. Low inspiratory result, without focal consolidation or pulmonary edema. No pneumothorax. Heart and Mediastinum: Normal cardiomediastinal silhouette. Bones: No acute osseous abnormality. IMPRESSION: No acute cardiopulmonary abnormality given the technique. SL: [id number] 07/23/2019 [facility] Brain wo contrast CT Clinical Indication: Right arm tingling, history of stroke. Comparison: None TECHNIQUE: CT images were obtained from the foramen magnum to the vertex without the use of intravenous contrast on a multidetector CT. Axial, coronal and sagittal reformats created. CT imaging performed at this location utilizes radiation dose optimization techniques which include one or more of the following: -Automated exposure control -Adjustment of the mA and/or kV accordin g to patient size -Use of iterative reconstruction [employer] ue CT Radiation Dose DLP: 868 mGy-cm. DLP means Dose Length Product, a radiation dose metric that does not report individual patient dose, but is a reference value related to the radiation output of the scanner used for this exam. FINDINGS: The exam is degraded by motion artifacts which resulted in the brain being scanned twice. Calvarium and scalp: No acute skull fracture or scalp hematoma. Benign calcification along the inner table of the left frontal skull may represent an osteoma or calcified meningioma. Ventricles and sulci: Mild cerebral volume loss. No hydrocephalus. Extra-axial spaces: No acute extra axial hemorrhage, fluid collection or mass effect. BRAIN PARENCHYMA: No acute parenchymal hemorrhage, or large subacute vascular territory infarction. There is gliosis/encephalomalacia in the right operculum, insula, striatocapsular region and contralateral left cingulate gyrus, corpus callosum and left occipital lobe. There is no mass effect or midline shift. Paranasal sinuses and mastoid air cells: Mild mucosal thickening of the right sphenoid sinus. Paranasal sinuses are otherwise unremarkable. The mastoid air cells are clear. If there is further concern for intracranial pathology or acute stroke, MRI of the brain may be performed for complete assessment. IMPRESSION: No acute intracranial hemorrhage, mass effect or large subacute infarction. Chronic changes: Gliosis/encephalomalacia in the vascular distribution of the right middle cerebral artery, left anterior cerebral artery and left posterior cerebral artery. SL: [id number] 07/23/2019 [facility] Chest 1view DX Clinical Indica tion: - wheezing/dyspnea Comparison: None FINDINGS: Single frontal radiograph of the chest is performed. Heart size is within normal limits. Mediastinal contours are unremarkable. Lungs are clear without infiltrate or mass. No pleural effusion or pneumothorax. No acute osseous abnormality. IMPRESSION: 1. No radiographic evidence for acute pr ocess in the chest. SL: [id number] 06/16/2018 [facility] Consultation Notes No Data Provided for This Section Discharge Summaries No Data Provided for This Section History and Physicals No Data Provided for This Section Vital Signs Vital Sign Value Date Comments Source Temperature Oral (F) 97.9 F 07/24/2019 [facility] Respitory Rate 20 07/24/2019 [facility] Systolic (mm Hg) 95 07/24/2019 [facility] Diastolic (mm Hg) 63 07/24/2019 [facility] Temperature Oral (F) 97.9 F 07/24/2019 [facility] Heart Rate 72 07/24/2019 [facility] Respitory Rate 18 07/24/2019 [facility] Systolic (mm Hg) 122 07/24/2019 [facility] Diastolic (mm Hg) 75 07/24/2019 [facility] Temperature Oral (F) 97.7 F 07/24/2019 [facility] Heart Rate 66 07/24/2019 [facility] Respitory Rate 17 07/24/2019 [facility] Systolic (mm Hg) 108 07/24/2019 [facility] Diastolic (mm Hg) 74 07/24/2019 [facility] Height 162.56 cm 07/24/2019 [facility] Weight 111.818 07/24/2019 [facility] BMI Calculated 42.31 07/24/2019 [facility] Heart Rate 75 07/24/2019 [facility] Height 167.64 cm 07/23/2019 [facility] BMI Calculated 42.05 07/23/2019 [facility] Weight 118.182 07/23/2019 [facility] Temperature Oral (F) 98.4 F 07/24/2018 [facility] Systolic (mm Hg) 155 07/24/2018 [facility] Diastolic (mm Hg) 95 07/24/2018 [facility] Heart Rate 93 07/24/2018 [facility] Respitory Rate 18 07/24/2018 [facility] Weight 116.364 07/24/2018 [facility] Temperature Oral (F) 98.4 F 07/24/2018 [facility] Systolic (mm Hg) 138 07/24/2018 [facility] Diastolic (mm Hg) 94 07/24/2018 [facility] Respitory Rate 18 07/24/2018 [facility] Heart Rate 108 07/24/2018 [facility] Systolic (mm Hg) 123 06/17/2018 [facility] Diastolic (mm Hg) 62 06/17/2018 [facility] Temperature Oral (F) 97.5 F 06/17/2018 [facility] Heart Rate 100 06/17/2018 [facility] Respitory Rate 20 06/17/2018 [facility] Temperature Oral (F) 98.0 F 06/17/2018 [facility] Systolic (mm Hg) 144 06/17/2018 [facility] Diastolic (mm Hg) 89 06/17/2018 [facility] Respitory Rate 18 06/17/2018 [facility] Temperature Oral (F) 97.9 F 06/17/2018 [facility] Respitory Rate 18 06/17/2018 [facility] Systolic (mm Hg) 141 06/17/2018 [facility] Diastolic (mm Hg) 67 06/17/2018 [facility] Weight 115.909 06/16/2018 [facility] Weight 104.545 06/16/2018 [facility] BMI Calculated 34.04 06/16/2018 [facility] Height 175.26 cm 06/16/2018 [facility] Heart Rate 111 06/16/2018 [facility] Encounters Location Location Details Encounter Type Encounter Number Reason For Visit Attending Provider ADM Date DC Date Status Source [facility] Observation [id number] Argelia Treadwell Sroujieh 06/16/20 18 06/17/2018 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 [...] QHS -- Recommend for patient to follow-up [facility] outpatient neurology for further work-up such [...] us in this patient's care. Addendum by López Garrido DO on 07/24/2019 22:40 CDT Patient independently evaluated at bedside including performing focused history and physical, reviewing all [employer] imaging/labs and concur with assessment and plan as outlined by Lyndsay Cardoza PA-C Extracted from:Title: General Admission H&P Author: Olive Gastelum MD Date: 07/23/19 Impression and Plan 1. Right hand paresthesia [...] profile, hemoglobin A1c Neurology consultation for TIA/CVA. Odidl-rz-[id number] glucose 3 times daily before meals and at bedtime. Hypoglycemia protocol Insulin sliding scale. Will resume home regimen once confirmed. DVT prophylaxis: Patient is on Xarelto Code full code. 07/24/2019 [facility] Extracted from:Title: Progress Note * Author: Jerrell Motta MD Date: 06/16/18 Impression and Plan 1. Acute on [...] [facility]. Depression: seroquel time: 40min Extracted from:Title: History and Physical Author: Argelia Agrawal MD [...] - on xarelto GI ppx - Pepcid 06/17/2018 [facility] Plan of Care No Data Provided for This Section Social History Social History Date Source Social History TypeResponse Alcohol Past Employment/School Status: Disabiltiy . Substance Abuse Use: Past. Type: Marijuana.1 Smoking Status Former smoker; Type: Cigarettes; Exposure to Tobacco Smoke None; Cigarette Smoking Last 365 Days Yes; Reg Smoking Cessation Counseling No; Tobacco use per day: 20; 2 entered on: 07/23/19 1Patient reports quiting february of [id number] atient reprots quitting in january of 201907/24/2019 [facility] Social History TypeResponse Smoking Status Current every day smoker; Type: Cigarettes; Exposure to Tobacco Smoke None; Cigarette Smoking Last 365 Days Yes; Reg Smoking Cessation Counseling No; Tobacco use per day: 20; entered on: 07/23/18 07/24/2018 [facility] Family History No Data Provided for This Section Advance Directives No Data Provided for This Section Functional Status No Data Provided for This Section
--- NOTE | 2020-04-21 17:26 | Emergency Department Note ---
History of Present Illnes History of Present Illness History of Present Illness This is a 54 year old female with difficulty arousing from sleep. Patient noted to be lethargic since this AM. Patient brought by EMS with noted BS of 500+. Seen at bedside AO x 2 . . Arrival Mode: [place] History limited by: developmental delay Senior Research Consultant Required: No Onset (how long ago): hour(s) (6) Radiation: Reports non-radiation Severity: moderate Onset quality: gradual Duration (how long): hour(s) (6) Timing of current episode: constant Progression: unchanged Chronicity: new Context: Reports non-compliance w/ medications Relieving factors: none Exacerbating factors: none Associated symptoms: Reports weakness Treatments prior to arrival: none Past Medical/Family History Physician Review I have reviewed the patient's past medical and family history. Any updates have been documented here. Past Medical History Past Medical History: Hypertension, Diabetes, [place], CVA, TIA, Depression, Hyperlipedemia Past Surgical History: T&A Other Surgery: UTERINE ABLATION BLADDER SURGERY Social History Smoking Cessation: Never Smoker Alcohol Use: None Any Illegal Drug Use: No Other Last Tetanus: UTD Review of Systems Review of Systems Constitutional: Reports weakness EENTM: Reports no symptoms Cardiovascular: Reports no symptoms Respiratory: Reports no symptoms Gastrointestinal: Reports nausea, Reports vomiting Genitourinary: Reports no symptoms Musculoskeletal: Reports no symptoms Integumentary: Reports no symptoms Neurological: Reports weakness Psychological: Reports no symptoms Endocrine: Reports no symptoms Hematological/Lymphatic: Reports no symptoms Physical Exam Related Data Allergies: Coded Allergies: Penicillins (Verified Allergy, Unknown, 04/23/20) Triage Vital Signs Vital Signs Date Time Temp Pulse Resp B/P (MAP) Pulse Ox O2 Delivery O2 Flow Rate FiO2 04/21/20 17:18 97.8 104 16 116/77 100 04/21/20 22:44 Room Air Vital signs reviewed: Yes Physical Exam CONSTITUTIONAL Constitutional: Present well-developed, Present morbidly obese HENT HENT: Present normocephalic, Present atraumatic, Present oropharynx clear/moist, Present nose normal HENT L/R: Present left ext ear normal, Present right ext ear normal EYES Eyes: Reports PERRL, Reports conjunctivae normal NECK Neck: Present ROM normal PULMONARY Pulmonary: Present effort normal, Present breath sounds normal CARDIOVASCULAR Cardiovascular: Present regular rhythm, Present heart sounds normal, Present capillary refill normal, Present normal rate GASTROINTESTINAL Abdominal: Present soft, Present nontender, Present bowel sounds normal GENITOURINARY Genitourinary: Present exam deferred SKIN Skin: Present warm, Present dry MUSCULOSKELETAL Musculoskeletal: Present ROM normal NEUROLOGICAL Neurological: Present alert, Present weakness, Present other (AO x 2) PSYCHOLOGICAL Psychological: Present mood/affect normal, Present judgement normal Results Laboratory Lab results reviewed: Yes Laboratory comments CBC: wnl CMP : Glu 362 , Co2 16.1 Imaging Imaging results reviewed: Yes Impressions [place] [id number] Patient Name: LORI ECHEVERRIA MR #: [id number] : 1965 Age/Sex: 54/F Req #: [id number] Adm Physician: Ordered by: MARCIO HASKINS DO Report #: [id number] Location: ER Room/Bed: Procedure: [id number] CT/CT BRAIN WO Exam Date: 04/21/20 Exam Time: 1835 REPORT STATUS: Signed CT BRAIN WO HISTORY: Altered mental status COMPARISON: None. Technique: Noncontrast axial scans were obtained from skull base to the vertex. Coronal and sagittal reconstructions obtained from the axial data. One or more of the following dose reduction techniques were used: Automated exposure control, adjustment of the mA and/or kV according to patient size, and/or utilization of iterative reconstruction technique. Beam hardening artifacts obscure some details. DISCUSSION: Scalp/Skull: Unremarkable. Brain sulci: Mildly prominent. Ventricles: Compensatory dilatation. Extra-axial spaces: No masses or fluid collections. Carotid siphon calcifications are present. Parenchyma: Areas of focal encephalomalacia in the right inferior frontal gyrus (centered on pars triangularis region), right insula, right striatocapsular region, left precuneus, and anterior left cingulate gyrus are compatible with remote infarcts. Local volume loss is seen in these regions. Subtle focal loss of collins-white differentiation in the left occipital pole may be due to age indeterminate ischemia. Focal hypodensity at the left caudate head also may be due to age indeterminate lacunar infarct. Mild bilateral deep white matter hypodensity is likely chronic microvascular ischemic change. Small cortical calcification in the anterior left superior frontal gyrus may be from remote infection or inflammation. Otherwise, no masses, hemorrhage, or large vascular territory acute infarct. Dural sinuses: No abnormal densities. Sellar/Suprasellar region: Apparent empty sella. Skull base: Intact. Incidental findings: Mild right sphenoid sinus mucosal thickening is present. IMPRESSION: 1. Questionable small age indeterminate left occipital pole cortical infarct. 2. Focal hypodensity at the left caudate head also may be due to age indeterminate lacunar infarct. 3. No other acute intracranial abnormalities. 4. Old juxtacortical infarcts in the right inferior frontal gyrus, right insula, right striatocapsular region, left precuneus, and anterior left cingulate gyrus. 5. Mild supratentorial chronic microvascular ischemic change. Mild generalized cerebral volume loss. 6. Small cortical calcification in the anterior left superior frontal gyrus may be from remote infection or inflammation. Signed by: Dr. Carlos Jaime M.D. on 04/21/2020 7:08 PM Dictated By: CARLOS JAIME MD 07 Transcribed By: DUY on 04/21/201907 COPY TO: MARCIO HASKINS DO~ Procedures 12 Lead ECG Interpretation ECG Interpretation : ECG: ECG 1 Senior Research Consultant: Interpreted by ED physician Date: Apr 21, 2020 Time: 17:28 Prior ECG tracings: reviewed Rhythm: sinus rhythm Rate: normal BPM: 98 QRS axis: normal ST segments normal: Yes T waves normal: Yes Clinical Impression: normal ECG Assessment & Plan Medical Decision Making MDM 54 yof presents with altered mental status. Family members indicated that patient's symptoms maybe psychosocial. Labs reviewed with mild hyperglycemia. CT head demonstrated age-indeterminate infarcts. CVA considered but patient out of the window for TPA. Plan to admit for inpatient evaluation with MRI and neurology consult Assessment & Plan Final Impression: (1) Altered mental status (2) Hyperglycemia Depart Disposition: ADMITTED Home Meds Active Scripts Clindamycin Hcl (CLINDAMYCIN HCL) 150 Mg Capsule, 300 MG PO QID for 5 Days Prov:DALTON OILVIA MD 03/15/20 Reported Medications Venlafaxine Hcl (VENLAFAXINE HCL) 37.5 Mg Tablet, 37.5 PO DAILY 04/22/20 Glipizide (GLIPIZIDE) 5 Mg Tablet, 10 MG PO BID for with food, TAB 04/22/20 Estradiol (ESTRADIOL) 1 Mg Tab, 1 MG PO DAILY, #30 TAB 03/14/20 Famotidine (FAMOTIDINE) 20 Mg Tab, 20 MG PO BID, #30 TAB 03/14/20 Famotidine (FAMOTIDINE) 20 Mg Tab, 20 MG PO DAILY, #30 TAB 03/14/20 Metoprolol Tartrate (METOPROLOL TARTRATE) 25 Mg Tablet, 25 MG PO BID, TAB 03/14/20 Oxybutynin Chloride (OXYBUTYNIN CHLORIDE) 5 Mg Tablet, 10 MG PO DAILY, #30 TAB 03/14/20 Rivaroxaban (XARELTO) 20 Mg Tablet, BID 03/14/20 Gabapentin (GABAPENTIN) 300 Mg Capsule, 600 MG PO BID, #60 CAP 03/14/20 Lisinopril (LISINOPRIL) 10 Mg Tablet, 10 MG PO BID, #60 TAB 03/14/20 Quetiapine Fumarate (SEROQUEL) 100 Mg Tablet, 400 MG PO HS, TAB 03/14/20 Furosemide (LASIX) 40 Mg Tablet, 40 MG PO DAILY, #30 TAB 03/14/20 Medications in the ED Sodium Chloride 1,000 ml @ 0 mls/hr Q0M STAT IV ; Start 04/21/20 at 17:19; Stop 04/21/20 at 17:22; Status DC Ondansetron HCl 4 mg NOW STAT IV ; Start 04/21/20 at 17:19; Stop 04/21/20 at 17:20; Status MARCIO FAULKNER DO Apr 21, 2020 17:26
[2020-04-21] MEDS ORDERED: ONDANSETRON HCL INJ 2MG/ML 2ML 2 MG/ML VIAL IV ONE (17:30)
[2020-04-21 17:57] LABS: BASOPHILS % 0.4 % (0.0-1.0); EOSINOPHILS # (AUTO) 0.1 (0.0-0.4); EOSINOPHILS % 0.9 % (0.0-6.0); HEMATOCRIT 43.8 % (34.2-44.1); HEMOGLOBIN 14.4 g/dL (12.0-16.0); LYMPHOCYTES # (AUTO) 2.4 (1.0-3.2); LYMPHOCYTES % 43.9 % (18.0-39.1); MEAN CORPUSCULAR HEMOGLOBIN 28.9 pg (28-32); MEAN CORPUSCULAR HGB CONC 32.9 g/dL (31-35); MONOCYTES # (AUTO) 0.5 (0.2-0.8); MONOCYTES % 8.8 % (4.4-11.3); NEUTROPHILS # (AUTO) 2.5 (2.1-6.9); NEUTROPHILS % 45.1 % (38.7-80.0); PLATELET COUNT 316 x10e3/uL (140-360); RED BLOOD COUNT 4.98 x10e6/uL (3.6-5.1); RED CELL DISTRIBUTION WIDTH 12.3 % (11.7-14.4)
[2020-04-21 18:09] LABS: ALANINE AMINOTRANSFERASE 25 IU/L (0-55); ALBUMIN 3.8 g/dL (3.5-5.0); ALBUMIN/GLOBULIN RATIO 0.9 (0.8-2.0); ALKALINE PHOSPHATASE 86 IU/L (40-150); ANION GAP 16.1 mmol/L (8-16); BLOOD UREA NITROGEN 12 mg/dL (7-26); BUN/CREATININE RATIO 11 (6-25); CALCIUM 9.5 mg/dL (8.4-10.2); CARBON DIOXIDE 22 mmol/L (22-29); CHLORIDE 101 mmol/L (98-107); CREATININE, SERUM 1.06 mg/dL (0.57-1.11); EST GLOMERULAR FILTRATION RATE > 60 ML/MIN (60-); GLUCOSE 312 mg/dL (74-118); POTASSIUM 4.1 mmol/L (3.5-5.1); SODIUM 135 mmol/L (136-145)
[2020-04-21] MEDS ORDERED: INSULIN REGULAR, HUMAN 100 UNIT/1 ML 3ML VIAL IV ONE (18:15)
--- NOTE | 2020-04-21 18:15 | NUR ---
Cosigned 10 of regular insulin via IV push per Dr. Saha with [facility]
--- NOTE | 2020-04-21 18:24 | NUR ---
notified resp 2nd call for abg.
--- NOTE | 2020-04-21 19:11 | Diagnostic Imaging Report ---
CT BRAIN WO HISTORY: Altered mental status COMPARISON: None. Technique: Noncontrast axial scans were obtained from skull base to the vertex. Coronal and sagittal reconstructions obtained from the axial data. One or more of the following dose reduction techniques were used: Automated exposure control, adjustment of the mA and/or kV according to patient size, and/or utilization of iterative reconstruction technique. Beam hardening artifacts obscure some details. DISCUSSION: Scalp/Skull: Unremarkable. Brain sulci: Mildly prominent. Ventricles: Compensatory dilatation. Extra-axial spaces: No masses or fluid collections. Carotid siphon calcifications are present. Parenchyma: Areas of focal encephalomalacia in the right inferior frontal gyrus (centered on pars triangularis region), right insula, right striatocapsular region, left precuneus, and anterior left cingulate gyrus are compatible with remote infarcts. Local volume loss is seen in these regions. Subtle focal loss of collins-white differentiation in the left occipital pole may be due to age indeterminate ischemia. Focal hypodensity at the left caudate head also may be due to age indeterminate lacunar infarct. Mild bilateral deep white matter hypodensity is likely chronic microvascular ischemic change. Small cortical calcification in the anterior left superior frontal gyrus may be from remote infection or inflammation. Otherwise, no masses, hemorrhage, or large vascular territory acute infarct. Dural sinuses: No abnormal densities. Sellar/Suprasellar region: Apparent empty sella. Skull base: Intact. Incidental findings: Mild right sphenoid sinus mucosal thickening is present. IMPRESSION: 1. Questionable small age indeterminate left occipital pole cortical infarct. 2. Focal hypodensity at the left caudate head also may be due to age indeterminate lacunar infarct. 3. No other acute intracranial abnormalities. 4. Old juxtacortical infarcts in the right inferior frontal gyrus, right insula, right striatocapsular region, left precuneus, and anterior left cingulate gyrus. 5. Mild supratentorial chronic microvascular ischemic change. Mild generalized cerebral volume loss. 6. Small cortical calcification in the anterior left superior frontal gyrus may be from remote infection or inflammation. Signed by: Dr. Carlos Jaime M.D. on 04/21/2020 7:08 PM
[2020-04-21] MEDS: ASPIRIN 81 MG CHEW TAB PO ONE (20:20)
[2020-04-21 20:24] LABS: CREATINE KINASE MB 0.7 ng/mL (0-5.0)
--- OUTSIDE RECORDS SUMMARY | 2020-04-21 20:29 | XMS REPORT | Continuity of Care Document ---
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 Information [employer] Unavailable Un available Problems Problem Status Onset Date Classification Date Reported Comments Source Hidradenitis suppurativa 07/23/2018 02/09/2019 [facility] TINGLING RT HAND Active 07/23/2018 [facility] BOIL RIGHT UNDERARM Active 07/23/2018 [facility] STROKE LIKE SYMPTOMS Active 07/23/2018 [facility] Chronic obstructive pulmonary disease wi th (acute) exacerbation 06/30/2018 01/04/2019 [facility] WHEEZING Active 06/16/2018 [facility] ACUTE BRONCHITIS WITH COPD, HYPERGLYCEMI Active 06/16/2018 [facility] Tobacco use 01/04/2019 [facility] Type 2 diabetes mellitus with hyperglycemia 01/04/2019 [facility] Type 2 diabetes mellitus with diabetic polyneuropathy 01/04/2019 [facility] Patient's other noncompliance with medication regimen 01/04/2019 [facility] Hyperlipidemia, unspecified 01/04/2019 [facility] FPC (current) use of anticoagulants 01/04/2019 [facility] Personal history of pulmonary embolism 01/04/2019 [facility] Bipolar (qualifier value) Reso lved Problem [facility] Bronchitis (disorder) Resolved Problem 07/26/2019 [facility] Diabetes mellitus (disorder) R esolved Problem [facility] Hypertensive disorder, systemic arterial (disorder) Resolved Problem 07/26/2019 [facility] Type II diabetes mellitus uncontrolled (finding) Active Problem 07/26/2019 [facility] Nicotine dependence, cigarettes, uncomplicated 02/09/2019 [facility] Type 2 diabetes mellitus without complications 02/09/2019 [facility] Essential (primary) hypertension 02/09/2019 [facility] Personal history of transient ischemic a ttack (TIA), and cerebral infarction without residual deficits 02/09/2019 [facility] Old myocardial infarction 02/09/2019 [facility] CHRONIC OBSTRUCTIVE PULMON DISEASE W ACU Active [facility] HYPERGLYCEMIA, UNSPECIFIED Act lara [facility] UNSPECIFIED SYMPTOMS AND SIGNS INVOLVING Active [facility] Medications Medication Details Route Status Patient Instructions Ordering Provider Order Date Source Aspirin 81 MG Enteric Coated Tablet 81 mg = 1 tab, PO, Daily, # 30 tab, 0 Refill(s) Active 07/25/2019 [facility] Aspirin Notes: Do not crush or chew. (Same As: Ecotrin) No Longer Active 07/25/2019 [facility] Nystatin 100 UNT/MG Topical Powder Notes: (Same as:Mycostatin, Nilstat) For external use only. Inactive 07/24/2019 [facility] Nystatin 100 UNT/MG Topical Powder 1 appl, TOP, TID, APPLY BENEATH BREASTS, X 7 day, # 15 gm, 0 Refill(s), Pharmacy: [facility]/pharmacy #[id number] Active 07/24/2019 [facility] Buspirone Notes: (Same As: BuS par) Inactive 07/24/2019 [facility] insulin detemir 60 unit, Route : SUB-Q, Drug form: SOLN, BID, Dosing Weight 111.818, kg, Start date: 07/24/19 9:00:00 CDT, Duration: 30 day, Stop date: 08/22/19 17:00:00 CDT Inactive 07/24/2019 [facility] Lisinopril Notes: (Same as: Pr inivil, Zestril) Inactive 07/24/2019 [facility] Ranitidine 150 MG Oral Tablet 150 mg, 1 tab, Route: PO, Drug form: TAB, BID, Dosing Weight 111.818, kg, Start date: 07/24/19 9:00:00 CDT, Duration: 30 day, Stop date: 08/22/19 17:00:00 CDT Inactive 07/24/2019 [facility] famotidine Notes: (Same as: Pe pcid) Inactive 07/24/2019 [facility] insulin glargine Notes: (Same as: Lantus) Do [...] Tylenol with Codeine # 3) Inactive 07/24/2019 [facility] Docusate Notes: (Same as: Cola ce) (Do Not Crush) No Longer Active 07/23/2019 [facility] Albuterol 0.83 MG/ML Inhalant Solution Notes: SEE RT DOCUMENTATION (Same as: Proventil) No Longer Active 07/23/2019 [facility] Dextrose 50% Syringe 12.5 gm, 25 mL, Route: IVP, Drug Form: INJ, Dosing Weight 118.182, kg, PRN, PRN Blood Glucose Results, Start date: 07/23/19 15:56:00 CDT, Duration: 30 day, Stop date: 08/22/19 15:55:00 CDT, 0 No Longer Active 07/23/2019 [facility] Glucagon 1 mg, Route: IM, Drug form: PDR/INJ, PRN, Dosing Weight 118.182, kg, PRN Blood Glucose Results, Start date: 07/23/19 15:56:00 CDT, Duration: 30 day, Stop date: 08/22/19 15:55:00 CDT, 0 No Longer Active 07/23/2019 [facility] Insulin Lispro Notes: (Same as : Humalog) Roll in palms of hands gently; Do not shake vigorously. WASTE: F/P - Black; E - Municipal Trash Bin Stable for 28 days at room temperature. Expires in days from Date No Longer Active 07/23/2019 [facility] Saline Flush 0.9% Notes: (Same as: BD Posiflush) No Longer Active 07/23/2019 [facility] Dextrose 50% Syringe 12.5 gm, 25 mL, Route: IVP, Drug Form: INJ, Dosing Weight 118.182, kg, PRN, PRN Blood Glucose Results, Start date: 07/23/19 15:51:00 CDT, Duration: 30 day, Stop date: 08/22/19 15:50:00 CDT, 0 No Longer Active 07/23/2019 [facility] Glucagon 1 mg, Route: IM, [...] tab, 0 Refill(s) No Longer Active 07/24/2018 [facility] clindamycin 150 mg oral capsule 450 mg = 3 cap, PO, TID, X 7 day, # 63 cap, 0 Refill(s) No Longer Active 07/24/2018 [facility] Clindamycin Notes: (Same As: C leocin) Inactive 07/24/2018 [facility] Zofran ODT Notes: (Same as: Zo shemar ODT) Inactive 07/24/2018 [facility] Morphine Notes: (Same as:MORPh ine Sulfate) Inactive 07/24/2018 [facility] Valium Notes: (Same as: Valium) Inactive 07/24/2018 [facility] 3 ML Insulin, Aspart, Human 100 UNT/ML P en Injector [NovoLog] 15 unit, SUB-Q, TID-Before Meals, # 10 m L, 0 Refill(s), Pharmacy: [facility]/pharmacy #[id number] Active 06/17/2018 [facility] predniSONE 10 mg oral tablet S ee Instructions, 4 tabs po daily for 3 days, then 3 tabs daily for 3 days, then 2 tab po daily x3 days, then 1 tab po daily for 3 days, # 28 tab, 0 Refill(s), Pharmacy: [facility]/pharmacy #[id number] No Longer Active 06/17/2018 [facility] 3 ML insulin detemir 100 UNT/ML Prefille d Syringe [Levemir] 60 unit, SUB-Q, BID, # 10 mL, 0 Refill(s ), Pharmacy: [facility]/pharmacy #[id number] Active 06/17/2018 [facility] Albuterol 0.833 MG/ML / Ipratropium Brom viktoriya 0.167 MG/ML Inhalant Solution [DuoNeb] 3 mL, NEB, QID, # 90 mL, 0 Refill(s), Ph armacy: [facility]/pharmacy #[id number] Active 06/17/2018 [facility] Insulin [...] fo od. No Longer Active 06/16/2018 [facility] insulin detemir 25 unit, Route [...] from Date No Longer Active 06/16/2018 [facility] Glucagon 1 mg, Route: IM, Drug form: PDR/INJ, PRN, Dosing Weight 104.545, kg, PRN Blood Glucose Results, Start date: 06/16/18 13:03:00 CDT, Duration: 30 day, Stop date: 07/16/18 13:02:00 CDT No Longer Active 06/16/2018 [facility] Dextrose 50% Syringe 25 gm, 50 mL, Route: IVP, Drug Form: INJ, Dosing Weight 104.545, kg, PRN, PRN Blood Glucose Results, Start date: 06/16/18 13:03:00 CDT, Duration: 30 day, Stop date: 07/16/18 13:02:00 CDT No Longer Active 06/16/2018 [facility] Buspirone Notes: (Same As: BuS par) Inactive 06/16/2018 [facility] Buspirone 15mg Buspirone 15mg, 1 [...] or milk. No Longer Active 06/16/2018 [facility] Brovana Notes: SEE RT DOCUMENT ATION Same as Brovana No Longer Active 06/16/2018 [facility] gabapentin 600 MG Oral Tablet [Neurontin] Notes: (Same as: Neurontin) No Longer Activ e 06/16/2018 [facility] Budesonide Notes: (Same As: Pu lmicort) No Longer Active 06/16/2018 [facility] Insulin Lispro Notes: (Same as : Humalog ) Roll in palms of hands gently; Do not shake `vigorously. "Single Patient Use Only " WASTE: F/P - Black; E - Municipal Trash Bin Stable for 28 days at room temp erature. Expires in days from Date Inactive 06/16/2018 [facility] Glucagon 1 mg, Route: IM, Drug form: PDR/INJ, PRN, Dosing Weight 104.545, kg, PRN Blood Glucose Results, Start date: 06/16/18 4:05:00 CDT, Duration: 30 day, Stop date: 07/16/18 4:04:00 CDT Inactive 06/16/2018 [facility] Dextrose 50% Syringe 25 gm, 50 mL, Route: IVP, Drug Form: INJ, Dosing Weight 104.545, kg, PRN, PRN Blood Glucose Results, Start date: 06/16/18 4:05:00 CDT, Duration: 30 day, Stop date: 07/16/18 4:04:00 CDT Inactive 06/16/2018 [facility] Acetaminophen Notes: Do not ex ceed 4 gm/day. (Same as: Tylenol) No Longer Active 06/16/2018 [facility] Ondansetron Notes: (Same as: Keily hernandez) MEDICATION WASTE Product Size: 4 mg Product Wasted: ___ mg No Longer Active 06/16/2018 [facility] Sodium Chloride 0.9% (Bolus) IV 1,000 mL, Infuse Over: 1 hr, Route: IV, ONCE, Priority: STAT, Dosing Weight 104.545 kg, Start date: 06/16/18 3:49:00 CDT, Stop date: 06/16/18 3:49:00 CDT Inactive 06/16/2018 [facility] Albuterol 0.83 MG/ML Inhalant Solution 2.49 mg, Route: NEB, Drug form: SOLN, ONCE, Dosing Weight 104.545, kg, Priority: STAT, Start date: 06/16/18 3:49:00 CDT, Stop date: 06/16/18 3:49:00 CDT Inactive 06/16/2018 [facility] Azithromycin 500 mg, Route: IV PB, ONCE, Dosing Weight 104.545, kg, Priority: STAT, Start date: 06/16/18 3:46:00 CDT, Stop date: 06/16/18 3:46:00 CDT, ABX Indication: Pneumonia Inactive 06/16/2018 [facility] Solu-Medrol 125 mg, Route: IVP , ONCE, Dosing Weight 104.545, kg, Priority: STAT, Start date: 06/16/18 3:46:00 CDT, Stop date: 06/16/18 3:46:00 CDT Inactive 06/16/2018 [facility] Insulin regular 10 unit, Route : IV, ONCE, Dosing Weight 104.545, kg, Priority: STAT, Start date: 06/16/18 3:16:00 CDT, Stop date: 06/16/18 3:16:00 CDT Inactive 06/16/2018 [facility] Albuterol 0.833 MG/ML / Ipratropium Brom viktoriya 0.167 MG/ML Inhalant Solution [DuoNeb] 6 mL, Route: NEB, Drug Form: SOLN, Dosin g Weight 104.545, kg, ONCE, Start date: 06/16/18 2:37:00 CDT, Stop date: 06/16/18 2:37:00 CDT Inactive 06/16/2018 [facility] Sodium Chloride 0.9% (Bolus) IV 1,000 mL, 1000 ml/hr, Infuse Over: 1 hr, Route: IV, 1,000, Drug form: INJ, ONCE, Priority: STAT, Dosing Weight 104.545 kg, Start date: 06/16/18 1:59:00 CDT, Stop date: 06/16/18 1:59:00 CDT Inactive 06/16/2018 [facility] Allergies, Adverse Reactions, Alerts Substance Category Reaction Severity Reaction type Status Date Reported Comments Source penicillins<sup>1</sup> Assert ion Drug aller gy Active per patient "yeast infections" [facility] Immunizations No Data Provided for This Section Results Order Name Results Value Reference Range Date Interpretation Comments Source CARDIAC ENZYMES Troponin-I <0.02 0.00 - 0.40 07/24/2019 [facility] ELECTROLYTES AGAP 11.4 10.0 - 20.0 07/24/2019 [facility] ELECTROLYTES Glucose Lvl 199 70 - 99 07/24/2019 [facility] ELECTROLYTES BUN 13 7 - 22 07/24/2019 [facility] ELECTROLYTES Creatinine Lvl 0.8 2 0.50 - 1.40 07/24/2019 [facility] ELECTROLYTES Sodium Lvl 138 135 - 145 07/24/2019 [facility] ELECTROLYTES Potassium Lvl 4.4 3.5 - 5.1 07/24/2019 [facility] ELECTROLYTES Chloride Lvl 104 95 - 109 07/24/2019 [facility] ELECTROLYTES CO2 27 24 - 32 07/24/2019 [facility] ELECTROLYTES Calcium Lvl 8.6 8.5 - 10.5 07/24/2019 [facility] ELECTROLYTES eGFR 95 07/24/2019 Result Comment: The [...] should be multiplied by the estimated BMI. [facility] HEMATOLOGY WBC 6.7 3.7 - 10.4 07/24/2019 [facility] HEMATOLOGY RBC 4.51 4.20 - 5.40 07/24/2019 [facility] HEMATOLOGY Hgb 13.4 12.0 - 16.0 07/24/2019 [facility] HEMATOLOGY Hct 40.0 36.0 - 48.0 07/24/2019 [facility] HEMATOLOGY MCV 88.6 80.0 - 98.0 07/24/2019 [facility] HEMATOLOGY MCH 29.7 27.0 - 31.0 07/24/2019 [facility] HEMATOLOGY MCHC 33.5 32.0 - 36.0 07/24/2019 [facility] HEMATOLOGY RDW 13.2 11.5 - 14.5 07/24/2019 [facility] HEMATOLOGY Platelet 341 133 - 450 07/24/2019 [facility] HEMATOLOGY MPV 8.1 7.4 - 10.4 07/24/2019 [facility] HEMATOLOGY Segs 41.9 45.0 - 75.0 07/24/2019 [facility] HEMATOLOGY Lymphocytes 49.5 20.0 - 40.0 07/24/2019 [facility] HEMATOLOGY Monocytes 6.9 2.0 - 12.0 07/24/2019 [facility] HEMATOLOGY Eosinophils 1.2 0.0 - 4.0 07/24/2019 [facility] HEMATOLOGY Basophils 0.5 0.0 - 1.0 07/24/2019 [facility] HEMATOLOGY Neutrophils # 2.8 1.5 - 8.1 07/24/2019 [facility] HEMATOLOGY Lymphocytes # 3.3 1.0 - 5.5 07/24/2019 [facility] HEMATOLOGY Monocytes # 0.5 0.0 - 0.8 07/24/2019 [facility] HEMATOLOGY Eosinophils # 0.1 0.0 - 0.5 07/24/2019 [facility] LIPIDS CHD Risk 5.25 3.90 - 5.80 07/24/2019 [facility] LIPIDS Trig 156 <=149 mg/dL 07/24/2019 [facility] LIPIDS Chol 189 <=199 mg/dL 07/24/2019 [facility] LIPIDS HDL 36 >=61 mg/dL 07/24/2019 [facility] LIPIDS LDL (Calculated) 122 <=99 mg/dL 07/24/2019 [facility] LIPIDS VLDL 31 07/24/2019 [facility] URINE AND STOOL UA Turbidity Clear (07/23/19 4:15 PM) Clear 07/23/2019 [facility] URINE AND STOOL UA Spec Grav 1.013 <=1.030 07/23/2019 [facility] URINE AND STOOL UA pH 5.0 5.0 - 8.0 07/23/2019 [facility] URINE AND STOOL UA Protein Negative mg/dL Negative mg/dL 07/23/2019 [facility] URINE AND STOOL UA Glucose 500 mg/dL Negative mg/dL 07/23/2019 [facility] URINE AND STOOL UA Bili Negative *NA* (07/23/19 4:15 PM) Negative 07/23/2019 [facility] URINE AND STOOL UA Blood Negative (07/23/19 4:15 PM) Negative 07/23/2019 [facility] URINE AND STOOL UA Nitrite Negative (07/23/19 4:15 PM) Negative 07/23/2019 [facility] URINE AND STOOL UA Leuk Est Negative (07/23/19 4:15 PM) Negative 07/23/2019 [facility] URINE AND STOOL UA Sq Epi Few /LPF Few /LPF 07/23/2019 [facility] URINE AND STOOL UA WBC 3 0 - 5 07/23/2019 [facility] URINE AND STOOL UA Mucus Few /LPF None Seen /LPF 07/23/2019 [facility] URINE AND STOOL UA Color LYYELLOW 07/23/2019 [facility] URINE AND STOOL UA Ketones Negative 07/23/2019 [facility] URINE AND STOOL UA Urobilinogen <=1.0 mg/dL 0.1 - 1.0 07/23/2019 [facility] ANEMIA STUDY Vitamin B12 Lvl 988 254 - 1320 07/23/2019 [facility] ANEMIA STUDY Folate Lvl 32.6 >=3.0 ng/mL 07/23/2019 [facility] CARDIAC ENZYMES Troponin-I <0.02 0.00 - 0.40 07/23/2019 [facility] ELECTROLYTES AGAP 10.5 10.0 - 20.0 07/23/2019 [facility] ELECTROLYTES Glucose Lvl 222 70 - 99 07/23/2019 [facility] ELECTROLYTES BUN 12 7 - 22 07/23/2019 [facility] ELECTROLYTES Sodium Lvl 137 135 - 145 07/23/2019 [facility] ELECTROLYTES Potassium Lvl 4.5 3.5 - 5.1 07/23/2019 [facility] ELECTROLYTES Chloride Lvl 102 95 - 109 07/23/2019 [facility] ELECTROLYTES CO2 29 24 - 32 07/23/2019 [facility] ELECTROLYTES Calcium Lvl 8.5 8.5 - 10.5 07/23/2019 [facility] ELECTROLYTES Creatinine Lvl 0.9 6 0.50 - 1.40 07/23/2019 [facility] ELECTROLYTES eGFR 80 07/23/2019 Result Comment: The [...] should be multiplied by the estimated BMI. [facility] HEMATOLOGY WBC 8.0 3.7 - 10.4 07/23/2019 [facility] HEMATOLOGY RBC 4.61 4.20 - 5.40 07/23/2019 [facility] HEMATOLOGY Hgb 13.8 12.0 - 16.0 07/23/2019 [facility] HEMATOLOGY Hct 41.2 36.0 - 48.0 07/23/2019 [facility] HEMATOLOGY MCV 89.4 80.0 - 98.0 07/23/2019 [facility] HEMATOLOGY MCH 29.9 27.0 - 31.0 07/23/2019 [facility] HEMATOLOGY MCHC 33.4 32.0 - 36.0 07/23/2019 [facility] HEMATOLOGY RDW 13.3 11.5 - 14.5 07/23/2019 [facility] HEMATOLOGY Platelet 365 133 - 450 07/23/2019 [facility] HEMATOLOGY MPV 7.8 7.4 - 10.4 07/23/2019 [facility] HEMATOLOGY Segs 56.7 45.0 - 75.0 07/23/2019 [facility] HEMATOLOGY Lymphocytes 35.2 20.0 - 40.0 07/23/2019 [facility] HEMATOLOGY Monocytes 6.2 2.0 - 12.0 07/23/2019 [facility] HEMATOLOGY Eosinophils 0.6 0.0 - 4.0 07/23/2019 [facility] HEMATOLOGY Basophils 1.3 0.0 - 1.0 07/23/2019 [facility] HEMATOLOGY Neutrophils # 4.5 1.5 - 8.1 07/23/2019 [facility] HEMATOLOGY Lymphocytes # 2.8 1.0 - 5.5 07/23/2019 [facility] HEMATOLOGY Monocytes # 0.5 0.0 - 0.8 07/23/2019 [facility] HEMATOLOGY Basophils # 0.1 0.0 - 0.2 07/23/2019 [facility] SPECIAL CHEMISTRY Hgb A1C 10.7 <=5.6 % 07/23/2019 [facility] CHEM PANEL Magnesium Lvl 2.3 1.8 - 2.4 06/17/2018 [facility] CHEM PANEL eGFR 74 06/17/2018 Result Comment: [...] should be multiplied by the estimated BMI. [facility] CHEM PANEL Chloride Lvl 103 95 - 109 06/17/2018 [facility] CHEM PANEL CO2 25 24 - 32 06/17/2018 [facility] CHEM PANEL Calcium Lvl 9.1 8.5 - 10.5 06/17/2018 [facility] CHEM PANEL AGAP 12.7 10.0 - 20.0 06/17/2018 [facility] CHEM PANEL Glucose Lvl 360 70 - 99 06/17/2018 [facility] CHEM PANEL BUN 22 7 - 22 06/17/2018 [facility] CHEM PANEL Creatinine Lvl 1.02 0.50 - 1.40 06/17/2018 [facility] CHEM PANEL Sodium Lvl 136 135 - 145 06/17/2018 [facility] CHEM PANEL Potassium Lvl 4.7 3.5 - 5.1 06/17/2018 [facility] SPECIAL CHEMISTRY Hgb A1C 12.7 <=5.6 % 06/17/2018 [facility] HEMATOLOGY Monocytes 11.6 2.0 - 12.0 06/16/2018 [facility] HEMATOLOGY Segs 55.9 45.0 - 75.0 06/16/2018 [facility] HEMATOLOGY Eosinophils 0.7 0.0 - 4.0 06/16/2018 [facility] HEMATOLOGY Lymphocytes 31.1 20.0 - 40.0 06/16/2018 [facility] HEMATOLOGY Neutrophils # 3.3 1.5 - 8.1 06/16/2018 [facility] HEMATOLOGY Basophils 0.7 0.0 - 1.0 06/16/2018 [facility] HEMATOLOGY Monocytes # 0.7 0.0 - 0.8 06/16/2018 [facility] HEMATOLOGY Lymphocytes # 1.8 1.0 - 5.5 06/16/2018 [facility] HEMATOLOGY RDW 13.5 11.5 - 14.5 06/16/2018 [facility] HEMATOLOGY MCHC 33.3 32.0 - 36.0 06/16/2018 [facility] HEMATOLOGY Platelet 269 133 - 450 06/16/2018 [facility] HEMATOLOGY MPV 8.3 7.4 - 10.4 06/16/2018 [facility] HEMATOLOGY WBC 5.9 3.7 - 10.4 06/16/2018 [facility] HEMATOLOGY Hct 39.7 36.0 - 48.0 06/16/2018 [facility] HEMATOLOGY Hgb 13.2 12.0 - 16.0 06/16/2018 [facility] HEMATOLOGY RBC 4.44 4.20 - 5.40 06/16/2018 [facility] HEMATOLOGY MCH 29.7 27.0 - 31.0 06/16/2018 [facility] HEMATOLOGY MCV 89.5 80.0 - 98.0 06/16/2018 [facility] CARDIAC ENZYMES BNP 3 <=100 pg/mL 06/16/2018 [facility] CARDIAC ENZYMES CK MB 1.2 0.5 - 3.6 06/16/2018 [facility] CARDIAC ENZYMES Troponin-I <0.02 0.00 - 0.40 06/16/2018 [facility] CARDIAC ENZYMES Total CK 67 12 - 191 06/16/2018 [facility] CARDIAC ENZYMES CK MB Index 1.8 0.0 - 2.5 06/16/2018 [facility] CHEM PANEL eGFR 62 06/16/2018 Result Comment: [...] should be multiplied by the estimated BMI. [facility] CHEM PANEL AGAP 14.5 10.0 - 20.0 06/16/2018 [facility] CHEM PANEL Calcium Lvl 9.1 8.5 - 10.5 06/16/2018 [facility] CHEM PANEL CO2 27 24 - 32 06/16/2018 [facility] CHEM PANEL Potassium Lvl 4.5 3.5 - 5.1 06/16/2018 [facility] CHEM PANEL Chloride Lvl 99 95 - 109 06/16/2018 [facility] CHEM PANEL Sodium Lvl 136 135 - 145 06/16/2018 [facility] CHEM PANEL Creatinine Lvl 1.18 0.50 - 1.40 06/16/2018 [facility] CHEM PANEL BUN 17 7 - 22 06/16/2018 [facility] CHEM PANEL Glucose Lvl 487 70 - 99 06/16/2018 Result Comment: Critical Result(s) woodson d to samira at 06/16/2018 03:14 by beth. Read back OK. [facility] Pathology Reports No Data Provided for This [...] acute infarction or acute intracranial abnormality. SL: [id number] 07/24/2019 [facility] Chest 1view DX Clinical Indica tion: Right [...] acute cardiopulmonary abnormality given the technique. SL: [id number] 07/23/2019 [facility] Brain wo contrast CT Clinical Indication: Right [...] to patient size -Use of iterative reconstruction [employer] ue CT Radiation Dose DLP: 868 mGy-cm. [...] artery and left posterior cerebral artery. SL: [id number] 07/23/2019 [facility] Chest 1view DX Clinical Indica tion: - wheezing/dyspnea Comparison: None FINDINGS: Single frontal radiograph of the chest is performed. Heart size is within normal limits. Mediastinal contours are unremarkable. Lungs are clear without infiltrate or mass. No pleural effusion or pneumothorax. No acute osseous abnormality. IMPRESSION: 1. No radiographic evidence for acute pr ocess in the chest. SL: [id number] 06/16/2018 [facility] Consultation Notes No Data Provided for This [...] [facility] Systolic (mm Hg) 155 07/24/2018 [facility] Diastolic (mm Hg) 95 07/24/2018 [facility] Heart Rate 93 07/24/2018 [facility] Respitory Rate 18 07/24/2018 [facility] Weight 116.364 07/24/2018 [facility] Temperature Oral (F) 98.4 F 07/24/2018 [facility] Systolic (mm Hg) 138 07/24/2018 [facility] Diastolic (mm Hg) 94 07/24/2018 [facility] Respitory Rate 18 07/24/2018 [facility] Heart Rate 108 07/24/2018 [facility] Systolic (mm Hg) 123 06/17/2018 [facility] Diastolic (mm Hg) 62 06/17/2018 [facility] [facility] Temperature Oral (F) 97.5 F 06/17/2018 [facility] Heart Rate 100 06/17/2018 [facility] Respitory Rate 20 06/17/2018 [facility] Temperature Oral (F) 98.0 F 06/17/2018 [facility] Systolic (mm Hg) 144 06/17/2018 [facility] Diastolic (mm Hg) 89 06/17/2018 [facility] Respitory Rate 18 06/17/2018 [facility] Temperature Oral (F) 97.9 F 06/17/2018 [facility] Respitory Rate 18 06/17/2018 [facility] Systolic (mm Hg) 141 06/17/2018 [facility] Diastolic (mm Hg) 67 06/17/2018 [facility] Weight 115.909 06/16/2018 [facility] Weight 104.545 06/16/2018 [facility] BMI Calculated 34.04 06/16/2018 [facility] Height 175.26 cm 06/16/2018 [facility] Heart Rate 111 06/16/2018 [facility] Encounters Location Location Details Encounter Type Encounter Number Reason For Visit Attending Provider ADM Date DC Date Status Source [facility] Observation [id number] Argelia Treadwell Sroujieh 06/16/20 18 06/17/2018 [facility] Emergency [id number] Atul Monse 07/24/2018 07/24/2018 [facility] Observation [id number] Olive Kaufmani 07/23/2019 07/24/2019 [facility] Procedures Procedure Code Date Perfomer Comments Source Tonsillectomy [id number] [facility] Assessment and Plan Assessment and Plan Date Source Extracted from:Title: Neurology Consult Note Author: Lyndsay Cardoza Date: 07/24/19 Patient is a 53-year-old [id number] woman past medical history significant for CVAs x3 with last stroke 2 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 Yivac-vc-ezji glucose 3 times daily before meals and at bedtime. Hypoglycemia protocol Insulin sliding scale. Will resume home regimen once confirmed. DVT prophylaxis: Patient is on Xarelto Code full code. 07/24/2019 [facility] Extracted from:Title: Progress Note * Author: Jerrell [...] on xarelto GI ppx - Pepcid 06/17/2018 [facility] Plan of Care No Data Provided for [...] atient reprots quitting in january of 201907/24/2019 [facility] Social History TypeResponse Smoking Status Current every day smoker; Type: Cigarettes; Exposure to Tobacco Smoke None; Cigarette Smoking Last 365 Days Yes; Reg Smoking Cessation Counseling No; Tobacco use per day: 20; entered on: 07/23/18 07/24/2018 [facility] Family History No Data Provided for This Section Advance Directives No Data Provided for This Section Functional Status No Data Provided for This Section
[2020-04-21 22:44] VITALS: BP 137/99
[2020-04-21 22:48] VITALS: BP 137/99
[2020-04-22] VITALS (8 sets, daily range): BP systolic 121–158; BP diastolic 81–98
[2020-04-22] MEDS ORDERED: VENLAFAXINE H37.5 MG PO (00:14)
[2020-04-22] MEDS ORDERED: GLIPIZIDE5 MG PO (00:14)
[2020-04-22] MEDS ORDERED: ACETAMINOPHEN 325 MG TAB PO PRN (02:45)
[2020-04-22] MEDS ORDERED: DEXTROSE 50% SYRINGE 50 ML IV PRN (02:45)
[2020-04-22] MEDS ORDERED: HYDRALAZINE HCL 20 MG/ML VIAL IV PRN (02:45)
[2020-04-22 07:24] LABS: BASOPHILS % 0.5 % (0.0-1.0); EOSINOPHILS # (AUTO) 0.1 (0.0-0.4); EOSINOPHILS % 0.8 % (0.0-6.0); HEMATOCRIT 42.1 % (34.2-44.1); HEMOGLOBIN 13.6 g/dL (12.0-16.0); LYMPHOCYTES # (AUTO) 2.7 (1.0-3.2); LYMPHOCYTES % 44.7 % (18.0-39.1); MEAN CORPUSCULAR HEMOGLOBIN 28.3 pg (28-32); MEAN CORPUSCULAR HGB CONC 32.3 g/dL (31-35); MEAN CORPUSCULAR VOLUME 87.5 fL (81-99); MONOCYTES # (AUTO) 0.6 (0.2-0.8); MONOCYTES % 9.1 % (4.4-11.3); NEUTROPHILS # (AUTO) 2.7 (2.1-6.9); NEUTROPHILS % 44.7 % (38.7-80.0); PLATELET COUNT 322 x10e3/uL (140-360); RED BLOOD COUNT 4.81 x10e6/uL (3.6-5.1); RED CELL DISTRIBUTION WIDTH 12.3 % (11.7-14.4)
[2020-04-22 07:51] LABS: CREATINE KINASE MB 0.6 ng/mL (0-5.0)
[2020-04-22 08:10] LABS: ALANINE AMINOTRANSFERASE 24 IU/L (0-55); ALBUMIN 3.5 g/dL (3.5-5.0); ALBUMIN/GLOBULIN RATIO 0.9 (0.8-2.0); ALKALINE PHOSPHATASE 79 IU/L (40-150); ANION GAP 16.3 mmol/L (8-16); BLOOD UREA NITROGEN 10 mg/dL (7-26); BUN/CREATININE RATIO 11 (6-25); CALCIUM 9.6 mg/dL (8.4-10.2); CARBON DIOXIDE 21 mmol/L (22-29); CHLORIDE 102 mmol/L (98-107); CREATININE, SERUM 0.89 mg/dL (0.57-1.11); EST GLOMERULAR FILTRATION RATE > 60 ML/MIN (60-); GLUCOSE 260 mg/dL (74-118); POTASSIUM 4.3 mmol/L (3.5-5.1); SODIUM 135 mmol/L (136-145)
[2020-04-22 08:21] LABS: MAGNESIUM 1.7 MG/DL (1.3-2.1); PHOSPHORUS 3.5 MG/DL (2.3-4.7)
[2020-04-22 08:42] LABS: THYROID STIMULATING HORMONE 0.879 uIU/mL (0.350-4.940)
[2020-04-22] MEDS: SODIUM CHLORIDE 0.9% 1000ML 1,000 ML IV SCH ×2 (08:44→19:46)
[2020-04-22] MEDS: RIVAROXABAN 20 MG TABLET PO SCH ×2 (08:44→17:15)
[2020-04-22] MEDS: METOPROLOL TARTRATE 25 MG TAB PO SCH ×2 (08:44→17:16)
[2020-04-22] MEDS: CLINDAMYCIN HCL 150 MG CAP PO SCH ×4 (08:44→20:48)
[2020-04-22] MEDS: GLIPIZIDE 5 MG TAB PO SCH ×2 (08:44→17:15)
[2020-04-22] MEDS: FAMOTIDINE 20 MG/2 ML VIAL IV SCH ×2 (08:44→17:15)
[2020-04-22] MEDS: OXYBUTYNIN CHLORIDE 5 MG TAB PO SCH (08:44)
[2020-04-22] MEDS: FUROSEMIDE 40 MG TAB PO SCH (08:44)
[2020-04-22] MEDS: INSULIN LISPRO 100 UNIT/1 ML 3ML VIAL SQ SCH ×4 (08:45→21:07)
[2020-04-22] MEDS: LISINOPRIL 10 MG TAB PO SCH ×2 (08:45→17:16)
[2020-04-22] MEDS: VENLAFAXINE HCL 37.5 MG TAB PO SCH (10:56)
[2020-04-22] MEDS: ESTRADIOL 1 MG TAB PO SCH (10:56)
--- NOTE | 2020-04-22 15:08 | Consultation ---
DATE OF CONSULTATION: Neurology Consultation. HISTORY OF PRESENT ILLNESS: Mrs. Katharine Diaz is a 54-year-old female who brought in for mental status changes. She has history of diabetes and has strokes and on admission, initially, she was hyperglycemic as per her family brought her in. Apparently, she was treated with insulin . She has known history of hypertension, diabetes, multiple CVAs, depression, TIAs and TX. Cognitive baseline status is unclear. REVIEW OF SYSTEMS: She is denying any pertinent positives. On admission, she reported nausea and vomiting, but she is currently eating vigorously without any apparent complaints. PAST SOCIAL HISTORY: As mentioned above, no tobacco, alcohol, or drug use that I can assess, although the patient is a poor historian. PHYSICAL EXAMINATION: VITAL SIGNS: Show a temperature of 97.9, heart rate of 94, blood pressure 150/85. GENERAL: She is alert. HEENT: Trachea is midline. NEURO: She is awake. She looks at the examiner. She said hello to me. Her extraocular muscles are intact and follow me across the room. Her pupils are reactive. She is eating and mostly , but she returns to eating immediately. There was no problems apparently with her chewing or swallowing. Her movements are fluid and non-ataxic. She has at least 4/5 strength in upper extremities and lower extremities, but possibly stronger. Reflexes are diminished, but present. ABDOMEN: Soft. PULMONARY: Clear. CARDIOVASCULAR: Regular rate and rhythm. There is no nuchal rigidity. ASSESSMENT AND PLAN: Seeing the patient, she is referred to me for mental status changes. The patient has some behavioral abnormalities and that she does not seem to interact with examiner to any great degree, in different words that. I am not sure if this is baseline status or this has changed due to hyperglycemic and cognitive changes, they seem to have been improved. However, her CT scan does show numerous infarcts in the brain lesions, so an MRI would be warranted. Possible history of epilepsy, given the amount of injury including cortical injuries on her MRI, but I do not see any evidence of seizure medications on her current MAR, so we would not really start her on antiepileptics, but I do think an MRI and EEG are warranted. I spent 25 minutes with the patient mostly observing and somewhat interactive with limited success. MD VIRGINIA REID /[id number]
[2020-04-22 15:56] LABS: CREATINE KINASE MB 0.7 ng/mL (0-5.0)
[2020-04-22] MEDS ORDERED: ONDANSETRON HCL INJ 2MG/ML 2ML 2 MG/ML VIAL IV PRN (20:30)
[2020-04-22] MEDS: ATORVASTATIN 20 MG TAB PO SCH (20:48)
[2020-04-23] VITALS (8 sets, daily range): BP systolic 127–150; BP diastolic 82–93
[2020-04-23] MEDS: SODIUM CHLORIDE 0.9% 1000ML 1,000 ML IV SCH ×3 (04:50→23:17)
[2020-04-23 06:00] LABS: BASOPHILS % 0.3 % (0.0-1.0); EOSINOPHILS # (AUTO) 0.1 (0.0-0.4); EOSINOPHILS % 1.2 % (0.0-6.0); HEMATOCRIT 38.5 % (34.2-44.1); HEMOGLOBIN 12.6 g/dL (12.0-16.0); LYMPHOCYTES # (AUTO) 2.6 (1.0-3.2); LYMPHOCYTES % 44.7 % (18.0-39.1); MEAN CORPUSCULAR HEMOGLOBIN 28.1 pg (28-32); MEAN CORPUSCULAR HGB CONC 32.7 g/dL (31-35); MEAN CORPUSCULAR VOLUME 85.9 fL (81-99); MONOCYTES # (AUTO) 0.6 (0.2-0.8); MONOCYTES % 9.8 % (4.4-11.3); NEUTROPHILS # (AUTO) 2.6 (2.1-6.9); NEUTROPHILS % 43.7 % (38.7-80.0); PLATELET COUNT 292 x10e3/uL (140-360); RED BLOOD COUNT 4.48 x10e6/uL (3.6-5.1); RED CELL DISTRIBUTION WIDTH 12.2 % (11.7-14.4)
[2020-04-23 06:25] LABS: ANION GAP 13.9 mmol/L (8-16); BLOOD UREA NITROGEN 11 mg/dL (7-26); BUN/CREATININE RATIO 12 (6-25); CALCIUM 8.2 mg/dL (8.4-10.2); CARBON DIOXIDE 21 mmol/L (22-29); CHLORIDE 102 mmol/L (98-107); EST GLOMERULAR FILTRATION RATE > 60 ML/MIN (60-); GLUCOSE 227 mg/dL (74-118); POTASSIUM 3.9 mmol/L (3.5-5.1); SODIUM 133 mmol/L (136-145)
--- NOTE | 2020-04-23 07:00 | NUR ---
Received bedside shift report from off going night nurse. Patient in stable condition, no s/s of distress noted.IV fluids infusing, site asymptomatic and patent with trans parent dressing C/D/I. Family at bedside. Bed in lowest position and locked. Call light within reach.
--- NOTE | 2020-04-23 07:01 | NUR ---
Bedside report and walking rounds completed with oncoming nurse. Patient in bed with call light within reach. No issues or concerns noted.
--- NOTE | 2020-04-23 09:39 | NUR ---
spoke to family at bedside patient baseline is quite and minimally verbal has hx of stroke, seizure and neuro-psych illness patient near baseline 98.3 92 121/81 eomi responds yes, no follows commands, interacts with family at bedisde well rrr cta abd soft moves all 4 extremities relfexes 1/4 sensory grossly intact no ataxia a/p metabolic encephalopathy, EEG showed no seizures reinitiate home seroquel at 50 q hs (previous dose 400Qhs? needs to follow w pcp psych as outpt ) possible cerebral amyloid angiopathy vs hypercoagulable state, pt seeing neuro as outpt on anticoagulation
[2020-04-23] MEDS: CLINDAMYCIN HCL 150 MG CAP PO SCH ×4 (09:41→20:58)
[2020-04-23] MEDS: FAMOTIDINE 20 MG/2 ML VIAL IV SCH ×2 (09:41→17:41)
[2020-04-23] MEDS: OXYBUTYNIN CHLORIDE 5 MG TAB PO SCH (09:41)
[2020-04-23] MEDS: ESTRADIOL 1 MG TAB PO SCH (09:43)
[2020-04-23] MEDS: FUROSEMIDE 40 MG TAB PO SCH (09:44)
[2020-04-23] MEDS: GLIPIZIDE 5 MG TAB PO SCH ×2 (09:44→17:41)
[2020-04-23] MEDS: METOPROLOL TARTRATE 25 MG TAB PO SCH ×2 (09:45→17:43)
[2020-04-23] MEDS: RIVAROXABAN 20 MG TABLET PO SCH ×2 (09:45→17:43)
[2020-04-23] MEDS: LISINOPRIL 10 MG TAB PO SCH ×2 (09:45→17:43)
[2020-04-23] MEDS: INSULIN LISPRO 100 UNIT/1 ML 3ML VIAL SQ SCH ×4 (11:19→21:01)
--- NOTE | 2020-04-23 12:11 | Electroencephalogram ---
DATE OF STUDY: REQUESTING PHYSICIAN: PROCEDURE: A 30-minute EEG. INDICATION: EEG is being done to evaluate encephalopathy. EEG DATA: Posterior dominant rhythm is slow in the 8 to 9 hertz range with prominent theta waves that are higher amplitude. However, the EEG is reactive with anterior beta frequencies noted. No captured during the study. No seizures captured during the study. EEG INTERPRETATION: This EEG is abnormal level 1 for mild diffuse encephalopathy. AMPARO YANG MD RR/MODL /[id number]
[2020-04-23] MEDS: VENLAFAXINE HCL 37.5 MG TAB PO SCH (12:27)
--- NOTE | 2020-04-23 13:10 | NUR ---
Called Dr. Ferrara about MRI results no answer left a message for him to call back.
--- NOTE | 2020-04-23 13:23 | Diagnostic Imaging Report ---
EXAMINATION: MRI of the brain without contrast. HISTORY: Altered mental status COMPARISON: Head CT of 04/21/2020. TECHNIQUE: Sagittal T2; axial DWI, T2, FLAIR, T1-IR, T2 gradient echo; coronal FLAIR. IMAGE QUALITY: Artifact from patient's motion limits the evaluation of some of the sequences. FINDINGS: Parenchyma: 1. Multiple focal areas of restricted diffusion in the cortico-subcortical region of the left superior, middle and anterior frontal gyri, as well as in the left superior parietal lobule and lateral parieto-occipital region. 2. Acute ischemic infarcts also involving the left caudate head and anterior/superior putamen (striato-capsular region). 3. Multiple chronic cortico-subcortical infarcts involving the left medial frontal lobe, right middle/inferior frontal gyri, right insula, left parasagittal post central gyrus. 4. Cavitating encephalomalacia in the right is striatocapsular region and compensatory dilatation of the right lateral ventricle. Associated mild ipsilateral Wallerian degeneration. 5. Scatter supratentorial white matter T2 hyperintensities, most likely nonspecific chronic microvascular ischemic changes. 6. No mass, midline shift or herniation. Skull: Grossly normal abnormalities Vessels: Poorly evaluated due to patient motion. Extra-axial spaces: No abnormal signal intensity or mass effect. Brain volume: Mild generalized brain volume loss Ventricles: No hydrocephalus. Foramen magnum: Unremarkable. Sella: Unremarkable. Paranasal / mastoid sinuses: No significant inflammatory disease. IMPRESSION: 1. Multiple left-sided acute ischemic infarcts to include the left frontoparietal and parieto-occipital cortical watershed distribution, as well as the left basal ganglia. 2. Multiple bilateral supratentorial chronic infarcts. 3. Moderate traumatic chronic medical vascular ischemic changes. 4. A CT angiogram of the head and neck or MR angiogram of the head and neck is recommended for further evaluation of the vasculature. The findings were discussed with the DIRECTOR OF STUDENT SERVICES taking care of the patient, Kaylinserenity Keys on 04/23/2020 at 1:05 PM Signed by: Dr. Jacy Jaimes M.D. on 04/23/2020 1:19 PM
--- NOTE | 2020-04-23 13:25 | NUR ---
Discontinuing PT services since patient is Mod I in functional mobility. Thank you. Addendum: 04/23/20 at 1328 by Marques slaughter PT Amended: Links added.
--- NOTE | 2020-04-23 19:28 | NUR ---
Completed rounding and bedside shift report with the on coming night nurse. Patient in stable condition, No s/s of distress noted. Family at bedside. Bed in lowest position and locked. Call light within reach.
--- NOTE | 2020-04-23 20:00 | NUR ---
Went into patient room. Found patient chewing on styrofoam cup. Instructed patient to spit out cup pieces, patient followed direction. All visual particles removed from oral cavity. Education provided to patient and family member to no allow patient to chew on cup, patient at risk of choking. Family verbalized understanding. Family stated that noted patient chewing on tele cords, all tele cords secured with tape. Will continue to monitor closely.
[2020-04-23] MEDS: ATORVASTATIN 20 MG TAB PO SCH (20:58)
[2020-04-23] MEDS: QUETIAPINE FUMARATE 25 MG TAB PO SCH (20:58)
[2020-04-24] VITALS (7 sets, daily range): BP systolic 134–149; BP diastolic 69–92
--- NOTE | 2020-04-24 04:07 | Progress Note ---
DATE: 04/23/2020 Dr. Kemp with Hematology has been consulted due to the acute ischemic infarcts. SUBJECTIVE: The patient is lying supine in bed, asleep, is arousable. Per the nurse, the patient's partner at bedside, was requesting Dr. Reilly Mann, removed sac from back at site of recent I and D of abscess, as it was too infected previously to have the sac removed. The patient remains confused, not at baseline. Denies headache or dizziness. OBJECTIVE: VITAL SIGNS: Temperature 97.9, heart rate 91, blood pressure 146/91, respirations 16, and oxygen saturation 97%. GENERAL: Supine, asleep, arousable. LUNGS: Clear to auscultation. HEENT: EOMI. NECK: Supple. CARDIOVASCULAR: Regular rate and rhythm. No murmur. ABDOMEN: Bowel sounds positive. Soft. EXTREMITIES: Without signs or symptoms of DVT or clubbing, cyanosis, or edema. NEUROLOGICAL: The patient only able to answer questions with one word. GCS 13; eyes 3, verbal 4, motor 6. LABORATORY DATA: WBC 5.89, hemoglobin 12.6, hematocrit 38.5, platelets 292. Sodium 133, potassium 3.9, chloride 102, CO2 21, anion gap 13.9, BUN 11 and creatinine 0.9, estimated GFR greater than 60, glucose 227, calcium 8.2. Homocystine, pending. Fingerstick blood glucose levels 246, 364, and 251. RADIOLOGY: MRI of the brain without contrast completed today. Multiple findings, but in part impression per interpreting radiologist included multiple left-sided acute ischemic infarcts to include the left frontal parietal and parieto-occipital cortical watershed distribution as well as the left basal ganglia, multiple bilateral supratentorial chronic infarcts, moderate traumatic chronic medical vascular ischemic changes. ASSESSMENT AND PLAN: 1. Multiple left-sided acute ischemic infarcts of the brain, altered mental status from baseline. Neurology follows per documentation by interpreting radiologist, a CT angiogram of the head and neck or MR angiogram of the head and neck is recommended for further evaluation of the vasculature. 2. Underlying MHMR, supportive care; on Effexor for history of depression, Seroquel held. 3. Controlled hypertension. Continue home medications. 4. Uncontrolled type 2 diabetes mellitus with hyperglycemia. Monitor fingerstick blood glucose levels. Continue glipizide and IV hydration. 5. Recent incision and drainage of back abscess. Dr. Mann consulted to remove sac from the patient's back. Continue home dose of clindamycin. 6. Hyperlipidemia. Atorvastatin started. LFTs within normal limits. 7. Mild acute hyponatremia and mild dehydration. Continue normal saline, present rate. 8. Morbid obesity with BMI 40.5. Dietary restrictions. 9. Prophylaxis, Xarelto, Pepcid. Billing code 48110. Time spent 35 minutes. Dictated by Jaylon Osorio, OLMAN MD LUCRETIA SimP/MODL /[id number]
[2020-04-24 06:06] LABS: ANION GAP 13.5 mmol/L (8-16); BLOOD UREA NITROGEN 9 mg/dL (7-26); BUN/CREATININE RATIO 10 (6-25); CALCIUM 8.2 mg/dL (8.4-10.2); CARBON DIOXIDE 22 mmol/L (22-29); CHLORIDE 104 mmol/L (98-107); CREATININE, SERUM 0.89 mg/dL (0.57-1.11); EST GLOMERULAR FILTRATION RATE > 60 ML/MIN (60-); GLUCOSE 141 mg/dL (74-118); MAGNESIUM 1.6 MG/DL (1.3-2.1); POTASSIUM 3.5 mmol/L (3.5-5.1); SODIUM 136 mmol/L (136-145)
--- NOTE | 2020-04-24 06:53 | NUR ---
Attempted to call Liu Dexter regarding consult. No answer and unable to leave message.
--- NOTE | 2020-04-24 07:28 | NUR ---
AWAKE AND ALERT. ACYANOTIC. RESTING IN BED. NO DISTRESS NOTED. FAMILY MEMBER AT BEDSIDE. BED LOW AND LOCKED. SIDE RAILS UP X2. CALL LIGHT IN REACH.
--- NOTE | 2020-04-24 08:06 | NUR ---
Attempted to call Dr Kemp regarding new consult. No answer and unable to leave message.
[2020-04-24] MEDS: INSULIN LISPRO 100 UNIT/1 ML 3ML VIAL SQ SCH ×4 (08:30→21:00)
[2020-04-24] MEDS: FAMOTIDINE 20 MG/2 ML VIAL IV SCH ×2 (08:43→17:01)
[2020-04-24] MEDS: ESTRADIOL 1 MG TAB PO SCH (08:43)
[2020-04-24] MEDS: OXYBUTYNIN CHLORIDE 5 MG TAB PO SCH (08:43)
[2020-04-24] MEDS: FUROSEMIDE 40 MG TAB PO SCH (08:43)
[2020-04-24] MEDS: VENLAFAXINE HCL 37.5 MG TAB PO SCH (08:43)
[2020-04-24] MEDS: CLINDAMYCIN HCL 150 MG CAP PO SCH ×4 (08:43→22:22)
[2020-04-24] MEDS: GLIPIZIDE 5 MG TAB PO SCH ×2 (08:43→17:01)
[2020-04-24] MEDS: LISINOPRIL 10 MG TAB PO SCH ×2 (08:44→17:02)
[2020-04-24] MEDS: METOPROLOL TARTRATE 25 MG TAB PO SCH ×2 (08:44→17:01)
[2020-04-24] MEDS: RIVAROXABAN 20 MG TABLET PO SCH ×2 (08:44→17:02)
[2020-04-24] MEDS: SODIUM CHLORIDE 0.9% 1000ML 1,000 ML IV SCH ×2 (09:15→18:18)
[2020-04-24] MEDS ORDERED: MAGNESIUM SULFATE 2GM/50ML 50 ML IV ONE (09:30)
--- NOTE | 2020-04-24 10:56 | NUR ---
stable 97.4 86 142/86 eomi responds yes, no follows commands, interacts with family at bedisde well rrr cta abd soft moves all 4 extremities relfexes 1/4 sensory grossly intact no ataxia a/p multiuple infarcts in young person, hypercoag workup in progress patient already on anticaogulation, despite this continues to have strokes sed rate is elevated. autoimmune panel in progress cta head and neck
--- NOTE | 2020-04-24 16:09 | NUR ---
DR. Paul SUTHERLAND INFORMED ME THAT HE WILL NOT REMOVE THE CYST DUE TO INCREASED /UNCONTROLLED BLOOD SUGAR. PHYSICIAN STATED THAT HE SAW PATIENT IN HIS OFFICE TWO WEEKS AGO AND DECIDED NOT TO REMOVE CYST. DECISION STILL STANDS PER PROVIDER. DR. Paul SUTHERLAND STATED THAT HE WILL LEAVE A NOTE IN THE CHART.
--- NOTE | 2020-04-24 18:12 | Diagnostic Imaging Report ---
EXAMINATION: CT angiogram of the [place] and neck with contrast CLINICAL HISTORY: Acute stroke, altered mental status COMPARISON: Brain MRI 04/23/2020 TECHNIQUE: The head and neck was scanned utilizing a multidetector helical scanner from the thoracic inlet to the vertex after the I.V contrast administration of 100 mL of Isovue-370. Multiplanar sagittal and coronal reconstructions were performed as well. For optimization of of anatomic evaluation, multi-planar reconstructions, maximum intensity projections, and advanced 3D off-line post-processing was obtained and performed on a dedicated stand-alone workstation under the direct supervision of the interpreting physician. Dose modulation, iterative reconstruction, and/or weight based adjustment of the mA/kV was utilized to reduce the radiation dose to as low as reasonably achievable. FINDINGS: The are no areas of abnormal density or enhancement in the brain. There is no mass, hemorrhage or extra-axial fluid collection. The CSF containing spaces are normal in size, position and configuration. CT ANGIOGRAM OF THE [place]: Diffuse narrowing of the right middle cerebral artery particularly at the M1 and M2 segments, there is also narrowing of the right MEREDITH A1 segments, which is likely related to near complete chronic occlusion of the right internal carotid artery as detailed below. The left MER[place]ITH and MCA are patent at this time. The bilateral senior it security analyst are patent. The right internal carotid artery is nearly completely occluded, with minimal distal reconstitution of the supraclinoid segment is vascular intravenous through a patent anterior and posterior communicating arteries. The left internal carotid artery is patent. The vertebro-basilar circulation is normal. No vascular malformation or aneurysmal dilatation is seen. The draining venous structures are normal and patent. Anatomic variation: Anterior Communicating Artery: Patent Posterior Communicating Arteries: Patent bilaterally Vertebral arteries: Codominant CT ANGIOGRAM OF THE NECK: If present, stenosis of the carotid bulbs is measured based on NASCET criteria i.e area of maximum stenosis compared to the cervical ICA distal to the bulb. The origin of the vessels is patent bilaterally. No calcified or soft atherosclerotic plaque is seen in the aortic arch or at the origin of the vessels. Right Carotid Artery: Prominent medially eccentric soft atherosclerotic plaque along the mid third of the right common carotid artery, which results in moderate stenoses (approximately 2 cm length). Near complete likely chronic occlusion of the right carotid bulb, cervical and intracranial ICA, minimal residual opacified lumen is seen in the cervical segment as well as the intracranial petrous, cavernous and supraclinoid segments. Note is made that the carotid bifurcation itself is preserved, unusual for atherosclerotic disease, the above-mentioned ICA stenoses may be the result of prior dissection. Left carotid artery: Large exophytic soft tissue density thrombus along the anterior wall of the left common carotid artery mid third measures approximately 2.5 cm length and results in severe stenoses (greater than 70%). The carotid bifurcation and carotid bulb are grossly preserved, which suggest embolic nature for the mentioned thrombus. The common carotid, internal and external carotid arteries at the level of the neck are otherwise patent, no evidence of stenoses. Vertebral Arteries: Both are normal in morphology and caliber. Both are codominant. No significant stenosis is seen. Incidental findings: Again noted multiple acute and chronic periventricular infarct, better visualized on brain MRI dated 04/23/2020. IMPRESSION: 1. Large fresh thrombus within the left common carotid artery is likely embolic and results in severe stenoses, this explains the patient's multiple acute left cerebral infarcts. Emergent neurointerventional/stroke team consultation is recommended. 2. Moderate stenosis of the right common carotid artery due to soft atherosclerotic plaque. 3. 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 4. Severe diffuse narrowing of the right middle cerebral artery and right MEREDITH A1 segment as detailed above. 5. Please see dictation of brain MRI of 04/23/2020 for further detail in multiple acute left cerebral infarctions and chronic right cerebral infarction. The findings and recommendations were discussed with the LOOPING MACHINE OPERATOR taking care of the patient Linh Pompa on 04/24/2020 at 5:40 PM, she will deliver this information to the attending physician Dr. Campbell Signed by: Dr. Jacy Jaimes M.D. on 04/24/2020 6:09 PM
--- NOTE | 2020-04-24 18:12 | Diagnostic Imaging Report ---
EXAMINATION: CT angiogram of the [place] and neck with contrast CLINICAL HISTORY: Acute stroke, altered mental status COMPARISON: Brain MRI 04/23/2020 TECHNIQUE: The head and neck was scanned utilizing a multidetector helical scanner from the thoracic inlet to the vertex after the I.V contrast administration of 100 mL of Isovue-370. Multiplanar sagittal and coronal reconstructions were performed as well. For optimization of of anatomic evaluation, multi-planar reconstructions, maximum intensity projections, and advanced 3D off-line post-processing was obtained and performed on a dedicated stand-alone workstation under the direct supervision of the interpreting physician. Dose modulation, iterative reconstruction, and/or weight based adjustment of the mA/kV was utilized to reduce the radiation dose to as low as reasonably achievable. FINDINGS: The are no areas of abnormal density or enhancement in the brain. There is no mass, hemorrhage or extra-axial fluid collection. The CSF containing spaces are normal in size, position and configuration. CT ANGIOGRAM OF THE [place]: Diffuse narrowing of the right middle cerebral artery particularly at the M1 and M2 segments, there is also narrowing of the right MEREDITH A1 segments, which is likely related to near complete chronic occlusion of the right internal carotid artery as detailed below. The left MEREDITH and MCA are patent at this time. The bilateral hotel or motel manager are patent. The right internal carotid artery is nearly completely occluded, with minimal distal reconstitution of the supraclinoid segment is vascular intravenous through a patent anterior and posterior communicating arteries. The left internal carotid artery is patent. The vertebro-basilar circulation is normal. No vascular malformation or aneurysmal dilatation is seen. The draining venous structures are normal and patent. Anatomic variation: Anterior Communicating Artery: Patent Posterior Communicating Arteries: Patent bilaterally Vertebral arteries: Codominant CT ANGIOGRAM OF THE NECK: If present, stenosis of the carotid bulbs is measured based on NASCET criteria i.e area of maximum stenosis compared to the cervical ICA distal to the bulb. The origin of the vessels is patent bilaterally. No calcified or soft atherosclerotic plaque is seen in the aortic arch or at the origin of the vessels. Right Carotid Artery: Prominent medially eccentric soft atherosclerotic plaque along the mid third of the right common carotid artery, which results in moderate stenoses (approximately 2 cm length). Near complete likely chronic occlusion of the right carotid bulb, cervical and intracranial ICA, minimal residual opacified lumen is seen in the cervical segment as well as the intracranial petrous, cavernous and supraclinoid segments. Note is made that the carotid bifurcation itself is preserved, unusual for atherosclerotic disease, the above-mentioned ICA stenoses may be the result of prior dissection. Left carotid artery: Large exophytic soft tissue density thrombus along the anterior wall of the left common carotid artery mid third measures approximately 2.5 cm length and results in severe stenoses (greater than 70%). The carotid bifurcation and carotid bulb are grossly preserved, which suggest embolic nature for the mentioned thrombus. The common carotid, internal and external carotid arteries at the level of the neck are otherwise patent, no evidence of stenoses. Vertebral Arteries: Both are normal in morphology and caliber. Both are codominant. No significant stenosis is seen. Incidental findings: Again noted multiple acute and chronic periventricular infarct, better visualized on brain MRI dated 04/23/2020. IMPRESSION: 1. Large fresh thrombus within the left common carotid artery is likely embolic and results in severe stenoses, this explains the patient's multiple acute left cerebral infarcts. Emergent neurointerventional/stroke team consultation is recommended. 2. Moderate stenosis of the right common carotid artery due to soft atherosclerotic plaque. 3. 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 4. Severe diffuse narrowing of the right middle cerebral artery and right MEREDITH A1 segment as detailed above. 5. Please see dictation of brain MRI of 04/23/2020 for further detail in multiple acute left cerebral infarctions and chronic right cerebral infarction. The findings and recommendations were discussed with the TERRAZZO WORKER taking care of the patient Linh Pompa on 04/24/2020 at 5:40 PM, she will deliver this information to the attending physician Dr. Campbell Signed by: Dr. Jacy Jaimes M.D. on 04/24/2020 6:09 PM
--- NOTE | 2020-04-24 19:08 | NUR ---
Armin WALTER NOTIFIED OF CONSULT. STATED, "I WILL SEE HER TONIGHT OR FIRST THING IN THE MORNING."
[2020-04-24] MEDS ORDERED: SODIUM CHLORIDE 0.9% 100 ML ONE (19:58)
[2020-04-24] MEDS ORDERED: IOPAMIDOL 370 MG/ML 200 ML INFUS..BTL INJ ONE (19:58)
--- NOTE | 2020-04-24 22:22 | Consultation ---
DATE OF CONSULTATION: 04/24/2020 REASON FOR CONSULTATION: Multiple falls, hypercoagulable disorder. HISTORY OF PRESENT ILLNESS: The patient is a 54-year-old female with a past medical history include diabetes and a stroke, currently in hospital with mental status change. She was hyperglycemic at admission. She also has history of hypertension and MT in the past. The patient was diagnosed with acute ischemic infarct includes left frontal parietal, right occipital, cortical ischemia. It also involve left basal ganglia. The patient also has bilateral multiple chronic subtentorial infarct, moderate ischemic changes. The patient then follows neurologist. Workup was requested. The patient was started on Xarelto with antiplatelet medication. The patient also required EEG. The patient was started on anti-seizure medication. The patient currently appears comfortable. Poor historian. CBC at admission shows normal hemoglobin, normal white blood cells, and normal platelets. She was started on lisinopril and Lopressor for the blood pressure. PAST MEDICAL HISTORY: Diabetes, hypertension, hyperlipidemia, and multiple strokes. ALLERGIES: NURSING LIST. MEDICATION LIST: Reviewed. SOCIAL HISTORY: No current habits. REVIEW OF SYSTEMS: A 12-point review as per HPI. FAMILY HISTORY: Not available. PHYSICAL EXAMINATION: GENERAL: Alert, awake, poorly communicative. HEENT: Normocephalic and atraumatic. Sclerae pale. Conjunctivae clear. NECK: Supple. CHEST: Decreased breath sounds in the bases. CARDIOVASCULAR: Regular rate and rhythm. ABDOMEN: Soft. EXTREMITIES: No edema. OFFBEARER: Residual neurological deficit. LABS AND IMAGING: Reviewed. ASSESSMENT AND PLAN: The patient with history of multiple medical conditions, currently admitted with stroke. Workup so far showed multiple left-sided acute ischemic lesion, history of chronic stroke in the past, currently on anticoagulation treatment. Neurologist on the case. RECOMMENDATIONS: The patient will benefit with hypercoagulable workup considering the multiple stroke at the young age. She will benefit with the lifelong anticoagulation treatment. She is currently on Xarelto. We will continue the Xarelto, follow the neurological workup. Recommendation to monitor blood pressure control and glycemic control. Continue remaining care. We will follow the patient very closely. Liu Kemp MD AR/MODL /[id number]
[2020-04-24] MEDS: ATORVASTATIN 20 MG TAB PO SCH (22:23)
[2020-04-24] MEDS: QUETIAPINE FUMARATE 25 MG TAB PO SCH (22:23)
[2020-04-25] VITALS (8 sets, daily range): BP systolic 131–150; BP diastolic 79–103
--- NOTE | 2020-04-25 01:12 | Consultation ---
DATE OF CONSULTATION: 04/24/2020 REASON FOR CONSULT: Mental status changes, stroke, carotid artery disease. REQUESTING PHYSICIAN: Aaron Ferrara MD. HISTORY OF PRESENT ILLNESS: I saw and evaluated this patient on April 24, 2020. She is a 54-year-old lady, who was admitted to the hospital with mental status changes. She has been evaluated by Internal Medicine, Neurology, and Hematology. She apparently does not have a prior history of neurologic status changes. She has good strength in all extremities, but is not very communicative and is not verbalizing. She has multiple neurologic findings and has had a brain CT, brain MRI, head CTA, and neck CTA. These have been performed from 04/21 until today 04/24. Initial brain CT showed questionable small indeterminate left occipital pole cortical infarct, focal hypodensity of the left caudate head, no other intracranial abnormalities, juxta cortical infarcts in the right frontal gyrus, right insula, right striatocapsular capsular region, left precuneus and anterior left cingulate gyrus, mild supratentorial chronic microvascular changes. Subsequent brain MRI revealed multiple left-sided acute ischemic infarcts including the left frontoparietal and parieto-occipital cortical watershed distribution and the left basal ganglia. There were multiple bilateral supratentorial chronic infarcts, moderate traumatic chronic medial vascular ischemic changes. Head and neck CTA revealed large fresh thrombus in the left common carotid artery that was felt to be embolic and resulted in severe stenosis, moderate stenosis of the right common carotid artery, likely chronic and near complete occlusion of the right cervical and intracranial internal carotid artery, possibly due to prior dissection or embolus, severe diffuse narrowing of the right middle cerebral artery and right MEREDITH. The patient has been in the hospital for about 48 hours and has been stable neurologically. Anticoagulation has been initiated. There is no clear history of prior myocardial infarction or stroke. She is not a smoker and does not use alcohol. No fevers or chills. PAST MEDICAL HISTORY: Positive for diabetes. Positive for history of stroke. Hyperglycemic on admission. She has a history of depression and TIAs. There is also history of myocardial infarction. SOCIAL HISTORY: Negative for smoking, alcohol, or IV drugs. ALLERGIES: NONE KNOWN. FAMILY HISTORY: Negative for early strokes or CAD. MEDICATIONS: See MAR. REVIEW OF SYSTEMS: Unobtainable because the patient is nonverbal. PHYSICAL EXAMINATION: GENERAL: Well-developed, somewhat overweight, the patient lying flat in bed. VITAL SIGNS: Blood pressure 130/70, pulse 80 and regular, respirations 16 and unlabored. NECK: Supple and nontender. No JVD. CARDIAC: Shows a regular rate and rhythm. Normal S1 and S2. No ectopic beats. No murmur. No rub. LUNGS: Clear to auscultation and percussion bilaterally. ABDOMEN: Globally benign. Good bowel sounds. No hepatosplenomegaly. BACK: No CVA tenderness. No muscular spasm. There is a well-healed subcutaneous cyst surgical site that is healing. EXTREMITIES: No cyanosis, clubbing, or edema. VASCULAR: Carotids 2+/2+ bilaterally. No carotid bruits that I could hear. Radials and femorals 2+/2+ bilaterally. SKIN: No rashes or nonhealing ulcers. MUSCULOSKELETAL: Full range of motion at all joints. No joint swelling NEUROLOGIC: The patient is nonverbal. However, she moves all 4 extremities appropriately and to command. Sensation is intact to light touch and pinprick. Transmission Supervisor strength 5/5 bilaterally. Ankle strength 5/5 bilaterally. SKIN: No rashes or nonhealing ulcers. MUSCULOSKELETAL: Full range of motion at all joints. LYMPHATIC: Negative for cervical, clavicular, femoral adenopathy. LABORATORIES: Sodium 136, potassium 3.5, BUN 9, creatinine 0.89. INR is pending. White count 5.89, hemoglobin 12.6, hematocrit 38.5, platelet count 292,000. IMPRESSION: Cerebral vascular disease, possibly related to embolic phenomenon. The patient has been initiated on anticoagulation. She has been in the hospital for approximately 48 hours at this point. Carotid bulbs seem open bilaterally. Neuroradiology evaluation may be required. I will discuss this with her other physicians. Thank you very much for asking me to see this nice lady. MD JOSE Rao/RITA /[id number]
[2020-04-25] MEDS: SODIUM CHLORIDE 0.9% 1000ML 1,000 ML IV SCH ×2 (04:14→13:47)
[2020-04-25 05:22] LABS: BASOPHILS % 0.4 % (0.0-1.0); EOSINOPHILS # (AUTO) 0.1 (0.0-0.4); EOSINOPHILS % 1.9 % (0.0-6.0); HEMATOCRIT 37.3 % (34.2-44.1); HEMOGLOBIN 12.1 g/dL (12.0-16.0); LYMPHOCYTES # (AUTO) 2.7 (1.0-3.2); LYMPHOCYTES % 48.1 % (18.0-39.1); MEAN CORPUSCULAR HEMOGLOBIN 28.7 pg (28-32); MEAN CORPUSCULAR HGB CONC 32.4 g/dL (31-35); MEAN CORPUSCULAR VOLUME 88.4 fL (81-99); MONOCYTES # (AUTO) 0.7 (0.2-0.8); MONOCYTES % 11.6 % (4.4-11.3); NEUTROPHILS # (AUTO) 2.2 (2.1-6.9); NEUTROPHILS % 37.8 % (38.7-80.0); PLATELET COUNT 280 x10e3/uL (140-360); RED BLOOD COUNT 4.22 x10e6/uL (3.6-5.1); RED CELL DISTRIBUTION WIDTH 12.3 % (11.7-14.4)
[2020-04-25 05:47] LABS: ANION GAP 13.7 mmol/L (8-16); BLOOD UREA NITROGEN 12 mg/dL (7-26); BUN/CREATININE RATIO 14 (6-25); CALCIUM 8.1 mg/dL (8.4-10.2); CARBON DIOXIDE 22 mmol/L (22-29); CHLORIDE 106 mmol/L (98-107); CREATININE, SERUM 0.83 mg/dL (0.57-1.11); EST GLOMERULAR FILTRATION RATE > 60 ML/MIN (60-); GLUCOSE 115 mg/dL (74-118); PHOSPHORUS 3.3 MG/DL (2.3-4.7); POTASSIUM 3.7 mmol/L (3.5-5.1); SODIUM 138 mmol/L (136-145)
[2020-04-25] MEDS: INSULIN LISPRO 100 UNIT/1 ML 3ML VIAL SQ SCH ×4 (07:30→21:00)
--- NOTE | 2020-04-25 07:31 | NUR ---
ASSUMED CARE. AWAKE AND ALERT. ACYANOTIC. RESTING IN BED. NO DISTRESS NOTED. CALL LIGHT IN REACH. SIDE RAILS UP X2. BED LOW.
[2020-04-25] MEDS: CLINDAMYCIN HCL 150 MG CAP PO SCH ×5 (09:00→20:45)
[2020-04-25] MEDS: FAMOTIDINE 20 MG/2 ML VIAL IV SCH ×2 (09:01→18:00)
[2020-04-25] MEDS: VENLAFAXINE HCL 37.5 MG TAB PO SCH (09:01)
[2020-04-25] MEDS: GLIPIZIDE 5 MG TAB PO SCH ×2 (09:01→18:00)
[2020-04-25] MEDS: ESTRADIOL 1 MG TAB PO SCH (09:01)
[2020-04-25] MEDS: FUROSEMIDE 40 MG TAB PO SCH (09:01)
[2020-04-25] MEDS: OXYBUTYNIN CHLORIDE 5 MG TAB PO SCH (09:01)
[2020-04-25] MEDS: RIVAROXABAN 20 MG TABLET PO SCH (09:02)
[2020-04-25] MEDS: METOPROLOL TARTRATE 25 MG TAB PO SCH ×2 (09:02→18:00)
[2020-04-25] MEDS: LISINOPRIL 10 MG TAB PO SCH ×2 (09:02→18:00)
--- NOTE | 2020-04-25 10:03 | NUR ---
ORDERS REC'D FROM PA JENAE GUADALUPE TO TRANSFER TO [facility], [facility] UNDER DR ROGERS FOR THROMBUS IN LEFT CAROTID ON CT ANGIO CM CALLED DR ROGERS TO ASK IF HE IS RECEIVING PHYSICIAN THERE AND HE STATES THAT HE SPOKE WITH NEURO DR YANG AND THEY HAVE DECIDED NOT TO TRANSFER BUT TO ANTICOAGULATE JENAE NOTIFIED OF ABOVE
--- NOTE | 2020-04-25 13:49 | NUR ---
stable 98.1 131/97 87 eomi responds yes, no follows commands, interacts with family at bedisde well rrr cta abd soft moves all 4 extremities relfexes 1/4 sensory grossly intact no ataxia a/p multiuple infarcts in young person, hypercoag workup in progress patient already on anticaogulation, despite this continues to have strokes sed rate is elevated. autoimmune panel in progress cta head and neck vascular imaging diffuse intra and extracanial disease- possible vasculopathy vs vasculitis , workup is in progress vascular surgeon saw patient, no intervention at this time. i recommend outpt follow up with intracranial vascular specialist. hematology recommendations regarding appropriate anticoagulation and workup. vasculopathy workup with rhuematology may also be warranted, at this time, pt on anticaogulation and on statins. and workup in progress. cognitive rehab may be helpful. but acute workup is complete for now. neuro ok to dc but will follow as long as pt in house
[2020-04-25] MEDS ORDERED: RIVAROXABAN 20 MG TABLET PO SCH (17:00)
[2020-04-25] MEDS: RIVAROXABAN 15 MG TABLET PO SCH (18:00)
--- NOTE | 2020-04-25 20:15 | NUR ---
Assisted patient to bed from recliner. Bed alarm on.
[2020-04-25] MEDS: ATORVASTATIN 20 MG TAB PO SCH (20:45)
[2020-04-25] MEDS: QUETIAPINE FUMARATE 25 MG TAB PO SCH (20:45)
[2020-04-26] VITALS: BP 151/94
[2020-04-26] MEDS: SODIUM CHLORIDE 0.9% 1000ML 1,000 ML IV SCH ×2 (01:25→11:15)
[2020-04-26 04:00] VITALS: BP 151/88
[2020-04-26] MEDS: INSULIN LISPRO 100 UNIT/1 ML 3ML VIAL SQ SCH ×2 (07:30→11:40)
[2020-04-26 07:39] VITALS: BP 141/75
[2020-04-26 08:57] VITALS: BP 141/75
--- NOTE | 2020-04-26 09:18 | Progress Note ---
DATE: SUBJECTIVE: The patient seen and examined today. The patient appeared comfortable. No worsening event noted. She was comfortably doing her breakfast. She had been following with Neurology and Neurosurgery. OBJECTIVE: GENERAL: Alert, awake, communicative. HEENT: Normocephalic and atraumatic. Sclerae pink. Conjunctiva clear. NECK: Supple. CHEST: Decreased breath sounds at bases. CARDIOVASCULAR: Regular rate and rhythm. ABDOMEN: Soft. EXTREMITIES: No edema. LABORATORY AND IMAGING DATA: Reviewed. ASSESSMENT AND PLAN: The patient with history of multiple medical conditions include multiple cerebrovascular accidents related with embolic phenomenon. The patient is currently on anticoagulation. Following neurologist, neurosurgeon. Hypercoagulable workup is requested, pending. RECOMMENDATION: Continue anticoagulation. We will follow Neurology's recommendation. Cardiovascular surgeon on the board. So far, conservative treatment is recommended. Continue remaining care. We will follow the patient closely. MD JAY JAY Marcos/RITA /[id number]
[2020-04-26] MEDS: CLINDAMYCIN HCL 150 MG CAP PO SCH ×2 (09:47→11:44)
[2020-04-26] MEDS: FAMOTIDINE 20 MG/2 ML VIAL IV SCH (09:47)
[2020-04-26] MEDS: ESTRADIOL 1 MG TAB PO SCH (09:48)
[2020-04-26] MEDS: VENLAFAXINE HCL 37.5 MG TAB PO SCH (09:48)
[2020-04-26] MEDS: OXYBUTYNIN CHLORIDE 5 MG TAB PO SCH (09:48)
[2020-04-26] MEDS: GLIPIZIDE 5 MG TAB PO SCH (09:48)
[2020-04-26] MEDS: FUROSEMIDE 40 MG TAB PO SCH (09:48)
[2020-04-26] MEDS: RIVAROXABAN 15 MG TABLET PO SCH (09:49)
[2020-04-26] MEDS: LISINOPRIL 10 MG TAB PO SCH (09:49)
[2020-04-26] MEDS: METOPROLOL TARTRATE 25 MG TAB PO SCH (09:49)
[2020-04-26] MEDS ORDERED: LIPITOR20 MG PO (09:55)
[2020-04-26] MEDS ORDERED: SEROQUEL25 MG PO (09:55)
[2020-04-26] MEDS ORDERED: XARELTO15 MG PO (09:55)
[2020-04-26] MEDS ORDERED: ONDANSETRON HCL 4 MG ORAL DISINTEGRATING TAB PO PRN (10:15)
[2020-04-26 11:30] VITALS: BP 158/98
--- NOTE | 2020-04-26 11:35 | NUR ---
ORDERS REC'D FOR HOME HEALTH SKILLED NURSE AND P.T. CHOICE LETTER SIGNED FOR [facility] BY PT SPOKE WITH GIOVANNI AT [facility] WHO CONFIRMED THEY ARE IN NETWORK FOR [employer] COPY OF CHOICE LETTER GIVEN TO PT ORIGINAL IN CHART PH: [phone] FAX [phone] CLINICALS FAXED TO ABOVE NUMBER CONFIRMATION REC'D HOME HEALTH NOTIFIED OF [facility] HOME TODAY
--- NOTE | 2020-04-26 13:04 | NUR ---
pt discharged home with family member, pt and family member understands that home health will assist at home, pt family member was given prescriptions, pt and family member were educated on them, iv site was removed. no swelling no redness to site.
--- NOTE | 2020-04-26 15:50 | Progress Note ---
DATE: 04/24/2020 CONSULTING PHYSICIANS: 1. Dr. Aaron Ferrara with Nephrology. 2. Dr. Liu Kemp with Hematology. 3. Dr. Reilly Mann with Surgery. SUBJECTIVE: The patient has minimal complaints. No headache or dizziness. Denies pain, minimally communicative, usually answers questions with one word. OBJECTIVE: VITAL SIGNS: Temperature 98.5, heart rate 83, blood pressure 139/69, respirations 17, and oxygen saturation 98%. GENERAL: No acute distress. Alert, awake. LUNGS: Clear to auscultation. Respiratory pattern even and unlabored. HEENT: EOMI. NECK: Supple. No bruit or JVD. CARDIOVASCULAR: Regular rate and rhythm. No murmur. ABDOMEN: Obese, soft. Bowel sounds x4 quadrants. EXTREMITIES: No clubbing, cyanosis, or edema. No signs or symptoms of DVT. NEUROLOGICAL: GCS 14; eyes 4, verbal 4, and motor 6. LABORATORY DATA: Sodium 136, potassium 3.5, chloride 104, CO2 of 22, anion gap 13.5, BUN 9, creatinine 0.89, estimated GFR greater than 60, glucose 141, calcium 8.2, and magnesium 1.6. Prothrombin gene mutation pending. Factor II DNA, pending. Serology 04/21/2020, coronavirus PCR not detected. IMAGING STUDIES: The patient had a head and neck CTA, CT angio without contrast today. She had a brain MRI on 04/23, which showed multiple left-sided acute ischemic infarcts to include the left frontoparietal and parieto-occipital cortical watershed distribution, as well as the left basal ganglia, multiple bilateral supratentorial chronic infarcts, moderate traumatic chronic medical vascular ischemic changes. A CT angiogram of the [place] and neck with contrast showed large fresh thrombus within the left common carotid artery, likely embolic and results in severe stenosis which explains the patient's multiple acute left cerebral infarcts. Moderate stenosis of the right common carotid artery due to soft atherosclerotic plaque likely chronic near-complete occlusion of the right cervical and intracranial internal carotid artery, severe diffuse narrowing of the right middle cerebral artery and right MEREDITH A1 segment. ASSESSMENT AND PLAN: 1. Altered mental status from baseline, likely due to multiple left-sided acute ischemic infarcts. 2. Left common carotid artery thrombus with severe stenosis. 3. Moderate stenosis of the right common carotid artery. 4. Near complete occlusion of the right cervical and intracranial internal carotid artery. 5. Severe diffuse narrowing of the right middle cerebral artery and right [place]ED[place] A1 segment. Neurology is following states the patient will benefit from hypercoagulable workup considering the multiple strokes at a young age. She will benefit with lifelong anticoagulation treatment, currently on Xarelto 20 mg p.o. b.i.d. according to monument erector. Above radiology imaging studies were shared with Neurology. There is a recommendation for surgery consult with Dr. Castaneda. I have spoken to Dr. Castaneda and he will see the patient either tonight or in the morning. 6. Underlying MHMR, on Effexor for history of depression. Seroquel held for now. Supportive care. 7. Controlled hypertension. Continue home medications. 8. Uncontrolled type 2 diabetes mellitus with hyperglycemia. Fingerstick blood glucose levels 177, 210, and 269. Continue hydration with normal saline at 100 mL an hour. Continue glipizide. 9. Recent incision and drainage of back abscess. Home dose of clindamycin was resumed. As per family wishes Dr. Reilly Mann who completed the incision and drainage was consulted. This is a courtesy consult and Dr. Mann has elected not to remove the sac associated with the back abscess. 10. Hyperlipidemia. Continue atorvastatin. 11. Mild acute hypokalemia. Potassium level 3.5. Continue normal saline for dehydration, replete. Monitor potassium level. 12. Mild acute hypomagnesemia. Magnesium level 1.6, replete. Follow up on magnesium level in the morning. 13. Morbid obesity with BMI 40.5. Dietary restrictions. 14. Prophylaxis. Xarelto, Pepcid. Billing code 43623. Time spent 45 minutes. Dictated by Jaylon Osorio NP Desean Campbell MD HWP/MODL /[id number]
--- NOTE | 2020-04-26 17:26 | Progress Note ---
DATE: 04/25/2020 PRIMARY CARE PHYSICIAN: Rishi Woodson MD CONSULTING PHYSICIANS: 1. Dr. Kyle Castaneda. 2. Dr. Aaron Ferrara, with Neurology. 3. Dr. Liu Kemp with Hematology. 4. Dr. Reilly Mann with General Surgery. SUBJECTIVE: The patient denies headache, pain, or dizziness. She is minimally communicative, only answers questions with one word. Denies any sore throat, trouble swallowing, shortness of breath, cough, phlegm, chest pain, palpitations, nausea, vomiting, diarrhea, or constipation. OBJECTIVE: VITAL SIGNS: Temperature 98.1, heart rate 87, blood pressure 150/83, respirations 18, oxygen saturation 97%. GENERAL: No acute distress. She is awake, alert, and aware of surroundings, but minimally communicative. LUNGS: Respirations nonlabored. Lungs are clear to auscultation. Breathing on room air. HEENT: EOMI. NECK: No JVD or bruit. CARDIOVASCULAR: Regular rate and rhythm. No murmur. ABDOMEN: Bowel sounds positive, soft. She is obese. Bowel sounds x4 in four quadrants. EXTREMITIES: No signs or symptoms of DVT. No clubbing, cyanosis, or edema. NEUROLOGIC: GCS 14, eye 4, verbal 4, motor 6. LABORATORY DATA: WBC 5.7, hemoglobin 12.1, hematocrit 37.3, platelets 280. Fingerstick blood glucose level 119. Sodium 138, potassium 3.7, chloride 106, CO2 22, anion gap 13.7, BUN 12, creatinine 0.83, estimated GFR greater than 60, glucose 115, calcium 8.1, phosphorus 3.3, magnesium 2.0. Additional diagnostic studies: Telemetry reviewed, normal sinus rhythm, heart rate 80. Echocardiogram done on 04/25 shows overall left ventricular systolic function, normal with an a ejection fraction between 55% and 60%. No new radiology results. ASSESSMENT AND PLAN: 1. Multiple left-sided acute ischemic infarcts. 2. Left common carotid artery, large thrombus with severe stenosis. 3. Moderate stenosis of the right common carotid artery. 4. Near-complete occlusion of the right cervical and intracranial internal carotid artery. 5. Severe diffuse narrowing of the right middle cerebral artery in right anterior cerebral artery A1 segment. The above diagnoses are based upon the radiologist's results of MRI brain and CT angio of the [place] of [place] and neck. Neurology continues to follow and Dr. Castaneda with Cardiothoracic surgery has seen and evaluated the patient and his impression includes cerebrovascular disease, possibly related to embolic phenomenon. Per his note, the patient has been initiated on anticoagulation and has been in the hospital for about 48 hours. At this point, carotid bulb seemed open bilaterally. Neuroradiology evaluation may be required. Case was discussed with Dr. Castaneda. Currently, the plan is to transfer the patient to [facility] in the [facility] for further Neuroradiology evaluation. Order entered for Case Management requesting the transfer with Dr. Castaneda, who is attending as discussed. The patient will likely require a procedure to remove the thrombus from the left common carotid artery. Per Dr. Castaneda, he spoke with Interventional Neurosurgery at [facility] on the [facility]. Anticoagulation is recommended. For now she is fairly far out from the event because she has fairly extensive intracerebral disease. It was recommended that a Cardiology consult with echocardiogram be obtained to look for embolic source and then elective cardiac catheterization with aortic arch angiogram and bilateral carotid and vertebral angiogram. Dr. Sauceda with Cardiology has been consulted. An echocardiogram ordered per Dr. Kemp with Hematology. We will decrease Xarelto from 20 mg p.o. b.i.d. to 15 mg p.o. b.i.d. as discussed. 6. Underlying mental health and mental retardation, Seroquel held. Continue Effexor for history of depression. Supportive care. 7. Controlled hypertension. Continue same. Blood pressure 150/83 this morning. 8. Uncontrolled type 2 diabetes mellitus with hyperglycemia. Serum CO2 22, serum glucose 115. Continue glipizide and hydration. Monitor fingerstick blood glucose levels. 9. Recent incision and drainage of back abscess. Home dose of clindamycin was resumed. Dr. Mann with General surgery has declined to remove the sac associated with facet abscess. This is a lower priority at this point, given the diagnoses above. 10. Hyperlipidemia, on atorvastatin. 11. Mild acute hypokalemia, resolved. Potassium level 3.7 (3.5). 12. Morbid obesity with BMI 40.5. Dietary restrictions. 13. Prophylaxis, Xarelto and Pepcid. Billing code 16500. Time spent 45 minutes. Dictated by Jaylon Osorio, PC ANALYST MD CHARLEY Sim/RITA /[id number]
--- NOTE | 2020-04-26 20:46 | Consultation ---
DATE OF CONSULTATION: Cardiology Consultation REASON FOR CONSULTATION: Possible embolic source for cerebrovascular accident. HISTORY OF PRESENT ILLNESS: This is a 54-year-old woman with diabetes mellitus, cerebrovascular accident, possible mental disability, hypertension, diabetes mellitus, depression, and TIAs. She was found to have several embolic phenomenon in her cerebrovascular system. The patient cannot provide me the exact details of her presenting symptoms or her past medical history. She only answers yes to most of my questions. REVIEW OF SYSTEMS: Unable to be obtained. PAST MEDICAL HISTORY: As stated above. PAST SURGICAL HISTORY: None recent. PAST FAMILY HISTORY: Noncontributory to her illness. SOCIAL HISTORY: Unknown. PAST ALLERGY HISTORY: Penicillin. SOCIAL HISTORY: Unknown. MEDICATIONS: See medications reconciliation form. PHYSICAL EXAMINATION: VITAL SIGNS: Temperature is 98.0, heart rate 77, respirations are 18, blood pressure is 158/98, ox saturation 99% on room air. GENERAL: Well appearing, in no apparent distress. NECK: No JVD. LUNGS: Clear to auscultation. CARDIOVASCULAR: Regular rate and rhythm. ABDOMEN: Soft, nontender, nondistended. EXTREMITIES: Trace edema. VASCULAR: Diminished pulses. SKIN: Warm, dry, intact. NEUROLOGIC: The patient is alert, not oriented. LABORATORY DATA: Reviewed. IMAGING DATA: Reviewed. Echocardiogram was technically difficult, although showed preserved left ventricular systolic function. IMPRESSION: 1. Cerebrovascular accident, carotid artery thrombosis. 2. Hypercoagulable state. 3. Mental disability. 4. Hypertension. 5. Hyperlipidemia. 6. Diabetes mellitus. RECOMMENDATIONS: No further cardiovascular management is required at this point in time. Her CT angiography will delineate the anatomy better than conventional angiography. Her echocardiogram showed preserved left ventricular systolic function with no obvious source of embolic phenomenon. Continue anticoagulation as you are. John Peterson DO BM/MODL /[id number]
--- NOTE | 2020-04-27 09:48 | Discharge Summary ---
ADMISSION DIAGNOSES: Altered mental status, likely due to infarct, possible cerebrovascular accident, underlying mental retardation, hypertension, type 2 diabetes, hyperlipidemia, hyponatremia, mild dehydration, morbid obesity with a BMI of 40.5. DISCHARGE DIAGNOSES: Altered mental status, likely due to infarct, possible cerebrovascular accident, underlying mental retardation, hypertension, type 2 diabetes, hyperlipidemia, hyponatremia, mild dehydration, morbid obesity with a BMI of 40.5, large fresh thrombus in the left common carotid artery. HISTORY: Hypertension, type 2 diabetes, [place], CVA, TIA, hyperlipidemia, depression, MR, mentally handicapped. SURGICAL HISTORY: T and A, uterine ablation, bladder surgery, multiple myomectomies, recent I and D of back abscess. FAMILY HISTORY: The patient's mother and father had diabetes. SOCIAL HISTORY: Noncontributory. The patient lives with her partner. HOSPITAL COURSE: A 54-year-old female admits for AMS from baseline. The patient has underlying MR, but has been talking less per RN report. On admission, CT of the brain showed questionable small age indeterminate left occipital pole cortical infarct. No other acute intracranial abnormalities. MRI of the brain showed multiple left-sided acute ischemic infarcts to include the left frontoparietal and parieto-occipital cortical watershed distribution, multiple bilateral supratentorial chronic infarcts. Neurology was consulted who ordered a CTA of the brain and neck, which showed a large fresh thrombus within the left common carotid artery, likely embolic and resulted in severe stenoses, moderate stenoses of the right common carotid artery, likely chronic near-complete occlusion of the right cervical and intracranial internal carotid, severe diffuse narrowing of the right middle cerebral artery and right MEREDITH. CT Surgery was consulted. The patient was started on anticoagulant and cholesterol medications. The patient had an EEG, which showed mild diffuse encephalopathy. Per CT Surgery, Cardiology, and Neurology, the patient will discharge home with new prescriptions for Xarelto, Seroquel, and Lipitor. She will follow up with primary care in 1 to 2 weeks. Cardiology ordered an echo, which showed a normal EF. He said the source is likely not cardiac, her troponins were negative, so there is no reason for catheterization. All physicians agreed to discharge. She will follow up with primary care as discussed. The patient's family understands instructions and agrees to plan. She was set up with home health prior to discharge. Dictated by Christel M Victor Hugo, CROSSING WATCHMAN MD SOMMER Sim/RITA /[id number]
--- NOTE | 2020-04-27 14:53 | NUR ---
SHAREE REC'D CALL FROM PT'S SIG OTHER, CARLOS [phone] STATING PT IS NOT AT HER BASELINE AND WANTS TO SPEAK TO A PHYSICIAN REGARDING WHAT HER DC DIAGNOSIS WAS CM CALLED CARE PROCESS MANAGER AND GAVE HER CARLOS'S NUMBER TO CALL CARLOS FEELS THAT PT IS NOT BACK TO HER BASELINE; STATES SHE IS NOT SPEAKING WELL BEFORE ORDERS FOR SPEECH THERAPY AND SW REDAL FAXED TO [facility] SHAREE CALLED PT'S PCP DR JACOB TO EXPEDITE F/U APPT; SPOKE WITH [facility] WHO STATES PT CAN BE AT THE OFFICE A WALK IN AT 7:30AM THURSDAY SHAREE CALLED CARLOS BACK AND LEFT VOICE MAIL EXPLAINING ABOVE GAVE HER MY NUMBER TO CALL IF ANY QUESTIONS/CONCERNS
== END 2020-04-26 12:49 | disposition home health service (06) | DRG 65 ==
LOC: ER 17:18 → ERHOLD 20:27 → MED/SURG 21:06 → OBSVTOIN 04-23 16:24
PROVIDERS: ADMIT Internal Medicine; ATTEND Internal Medicine
DX: I63.232 Cerebral infarction due to unspecified occlusion or stenosis of left carotid arteries (principal); E87.1 Hypo-osmolality and hyponatremia; Z68.41 Body mass index [BMI] 40.0-44.9, adult; G93.49 Other encephalopathy; I10 Essential (primary) hypertension; I25.2 Old myocardial infarction; Z09 Encounter for follow-up examination after completed treatment for conditions other than malignant neoplasm; Z86.73 Personal history of transient ischemic attack (TIA), and cerebral infarction without residual deficits; E78.5 Hyperlipidemia, unspecified; Z88.0 Allergy status to penicillin; E66.01 Morbid (severe) obesity due to excess calories; Z83.3 Family history of diabetes mellitus; E11.65 Type 2 diabetes mellitus with hyperglycemia; F79 Unspecified intellectual disabilities; Z11.59 Encounter for screening for other viral diseases
CPT/HCPCS: 36415; 70450; 70496; 70498; 70551; 80048; 80053; 82140; 82550; 82553; 82948; 83010; 83090; 83690; 83735; 84100; 84443; 84484; 85025; 85300; 85302; 85303; 85305; 85306; 85597; 85598; 85613; 85651; 85730; 85732; 86039; 86146; 86147; 86148; 86376; 86849; 87635; 93005; 93306; 95812; 99284; G0378; J2405; J3475; J7030; J7050; Q9967

== ENCOUNTER 2020-05-05 13:05 | Emergency (ER) | payer MEDICARE, OTHER ==
[~2020-05-05] VITALS: Ht 162.6 cm; Wt 107.0 kg
[~2020-05-05 13:05] MED LIST changes: +GLIPIZIDE5 MG PO; +LIPITOR20 MG PO; +SEROQUEL25 MG PO; +VENLAFAXINE H37.5 MG PO; +XARELTO15 MG PO
--- NOTE | 2020-05-05 13:17 | Emergency Department Note ---
History of Present Illnes History of Present Illness Chief Complaint: General Medicine Complaints History of Present Illness This is a 54 year old female brought by EMS for weakness. 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 Seen at bedside in NAD. . 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 Any updates have been documented here. Past Medical History Recent Fever: No Clinical Suspicion of Infectio: No New/Unexplained Change in Ment: No Past Medical History: Hypertension, Diabetes, [place], CVA, TIA, CAD, Depression, Other Mental Illness, Hyperlipedemia Other Medical History: MR Past Surgical History: T&A Other Surgery: UTERINE ABLATION BLADDER SURGERY Other Last Tetanus: UTD Physical Exam Related Data Allergies: Coded Allergies: Penicillins (Verified Allergy, Unknown, 04/23/20) Triage Vital Signs Vital Signs Date Time Temp Pulse Resp B/P (MAP) Pulse Ox O2 Delivery O2 Flow Rate FiO2 05/05/20 13:07 98.2 88 18 155/82 97 Physical Exam CONSTITUTIONAL Constitutional: Present well-developed, Present well-nourished HENT HENT: Present normocephalic, Present atraumatic, Present oropharynx clear/moist, Present nose normal HENT L/R: Present left ext ear normal, Present right ext ear normal EYES Eyes: Reports PERRL, Reports conjunctivae normal NECK Neck: Present ROM normal PULMONARY Pulmonary: Present effort normal, Present breath sounds normal CARDIOVASCULAR Cardiovascular: Present regular rhythm, Present heart sounds normal, Present capillary refill normal, Present normal rate GASTROINTESTINAL Abdominal: Present soft, Present nontender, Present bowel sounds normal GENITOURINARY Genitourinary: Present exam deferred SKIN Skin: Present warm, Present dry MUSCULOSKELETAL Musculoskeletal: Present ROM normal NEUROLOGICAL Neurological: Present alert, Present oriented x 3, Present no gross motor or sensory deficits PSYCHOLOGICAL Psychological: Present mood/affect normal, Present judgement normal Assessment & Plan Medical Decision Making MDM 54 yof with nonspecific complaint by family member of behavior disturbance and weakness. CTS brain ordered to r/o intracranial pathology. MAT team assessed pt at bedside. Patient discharged and note to be ambulatory and without any issues of lethargy and weakness. Concern for adjustment disorder secondary to recent CVA versus behavior issues Reassessment Reassessment time: 16:31 Reassessment MAT team evaluated patient. No criteria for involuntary confinement. Patient exhibits depression and sequalae of recent CVA. Assessment & Plan Final Impression: (1) Weakness Depart Disposition: HOME, SELF-CARE Last Vital Signs Date Time Temp Pulse Resp B/P (MAP) Pulse Ox O2 Delivery O2 Flow Rate FiO2 05/05/20 13:07 98.2 88 18 155/82 97 Home Meds Active Scripts Atorvastatin Calcium (LIPITOR) 20 Mg Tablet, 20 MG PO HS for 30 Days Prov:REJIXIOMY Nunes SHIELD CLEANER 04/26/20 Quetiapine Fumarate (SEROQUEL) 25 Mg Tablet, 25 MG PO HS for 30 Days Prov:REJIXIOMY M SHIELD CLEANER 04/26/20 Rivaroxaban (XARELTO) 15 Mg Tablet, 15 MG PO BID for 30 Days Prov:XIOMY MENDOZA SHIELD CLEANER 04/26/20 Reported Medications Venlafaxine Hcl (VENLAFAXINE HCL) 37.5 Mg Tablet, 37.5 PO DAILY 04/22/20 Glipizide (GLIPIZIDE) 5 Mg Tablet, 10 MG PO BID for with food, TAB 04/22/20 Estradiol (ESTRADIOL) 1 Mg Tab, 1 MG PO DAILY, #30 TAB 03/14/20 Famotidine (FAMOTIDINE) 20 Mg Tab, 20 MG PO DAILY, #30 TAB 03/14/20 Metoprolol Tartrate (METOPROLOL TARTRATE) 25 Mg Tablet, 25 MG PO BID, TAB 03/14/20 Oxybutynin Chloride (OXYBUTYNIN CHLORIDE) 5 Mg Tablet, 10 MG PO DAILY, #30 TAB 03/14/20 Gabapentin (GABAPENTIN) 300 Mg Capsule, 600 MG PO BID, #60 CAP 03/14/20 Lisinopril (LISINOPRIL) 10 Mg Tablet, 10 MG PO BID, #60 TAB 03/14/20 Furosemide (LASIX) 40 Mg Tablet, 40 MG PO DAILY, #30 TAB 03/14/20 MARCIO HASKINS DO May 05, 2020 13:17
[2020-05-05 13:44] LABS: BASOPHILS % 0.5 % (0.0-1.0); EOSINOPHILS # (AUTO) 0.1 (0.0-0.4); EOSINOPHILS % 1.5 % (0.0-6.0); HEMATOCRIT 41.7 % (34.2-44.1); HEMOGLOBIN 13.5 g/dL (12.0-16.0); LYMPHOCYTES # (AUTO) 2.7 (1.0-3.2); LYMPHOCYTES % 41.3 % (18.0-39.1); MEAN CORPUSCULAR HEMOGLOBIN 28.2 pg (28-32); MEAN CORPUSCULAR HGB CONC 32.4 g/dL (31-35); MEAN CORPUSCULAR VOLUME 87.2 fL (81-99); MONOCYTES # (AUTO) 0.5 (0.2-0.8); MONOCYTES % 7.4 % (4.4-11.3); NEUTROPHILS # (AUTO) 3.2 (2.1-6.9); PLATELET COUNT 414 x10e3/uL (140-360); RED BLOOD COUNT 4.78 x10e6/uL (3.6-5.1); RED CELL DISTRIBUTION WIDTH 12.4 % (11.7-14.4)
[2020-05-05 13:48] LABS: BILIRUBIN,URINE NEGATIVE (NEGATIVE); CLARITY,URINE CLEAR (CLEAR); COLOR,URINE YELLOW (YELLOW); KETONES,URINE NEGATIVE (NEGATIVE); LEUKOCYTE ESTERASE ,URINE NEGATIVE (NEGATIVE); NITRITE,URINE NEGATIVE (NEGATIVE); PROTEIN,URINE DIPSTICK NEGATIVE (NEGATIVE); URINE UROBILINOGEN 0.2 mg/dL (0.2 - 1)
[2020-05-05 13:50] LABS: BACTERIA,URINE FEW /HPF; EPITHELIAL CELLS,URINE FEW /LPF; RBC,URINE 0-5 /HPF (0-5); WBC,URINE (MAN) 0-5 /HPF (0-5)
[2020-05-05 14:05] LABS: ALANINE AMINOTRANSFERASE 27 IU/L (0-55); ALBUMIN 3.6 g/dL (3.5-5.0); ALKALINE PHOSPHATASE 72 IU/L (40-150); ANION GAP 13.4 mmol/L (8-16); BLOOD UREA NITROGEN 13 mg/dL (7-26); BUN/CREATININE RATIO 15 (6-25); CALCIUM 9.3 mg/dL (8.4-10.2); CARBON DIOXIDE 23 mmol/L (22-29); CHLORIDE 104 mmol/L (98-107); CREATININE, SERUM 0.89 mg/dL (0.57-1.11); EST GLOMERULAR FILTRATION RATE > 60 ML/MIN (60-); GLUCOSE 202 mg/dL (74-118); POTASSIUM 4.4 mmol/L (3.5-5.1); SODIUM 136 mmol/L (136-145)
--- NOTE | 2020-05-05 14:18 | Diagnostic Imaging Report ---
History:Altered mental status Comparison studies: Head CT on 04/21/2020 and brain MRI on 04/23/2020 Cervical and intracranial CTAs on 04/24/2020 Technique: Axial images were obtained from the skull base to the vertex. Coronal and sagittal images reconstructed from the axial data. Dose modulation, iterative reconstruction, and/or weight based adjustment of the mA/kV was utilized to reduce the radiation dose to as low as reasonably achievable. Intravenous contrast: None Findings: Scalp/skull: No abnormalities. Extra-axial spaces: No masses. No fluid collections. Brain sulci: Mildly prominent. Ventricles: Mild compensatory dilatation. No hydrocephalus. Parenchyma: Vague hypodensities in the right parafalcine orbitofrontal region and in the head of the left caudate are the evolving changes of the acute vascular insult described in these regions on the MRI. Additional insults (in the the frontoparietal cortex and left temporo-occipital convexity), clearly seen on the MRI, are no longer visualized. Cortical encephalomalacic changes, centered in the right inferior frontal gyrus, right insula, head of the right caudate and the adjacent putamen of the result of a vascular insult that compromised the anterior division of the right MCA. No masses, hemorrhage, acute or additional chronic cortical vascular insults. Sellar/suprasellar region: No abnormalities. Craniocervical junction: Patent foramen magnum. No Chiari one malformation. Incidental findings: Subtle atherosclerotic calcifications in the carotid siphons . Impression: 1. No acute intracranial abnormalities. 2. Acute left MEREDITH and MCA vascular insults, described on the MRI on 04/23/2020 in the left parasagittal frontoparietal cortex, in the head of the left caudate and along the left temporo-occipital convexity, have evolved and are now subacute. 3. Otherwise, no changes when compared to the previous head CT on the previous MRI 4. Please refer to the report on the cervical and intracranial CTA on 04/24/2024 description of vascular findings involving the carotid arteries. Chronic persistent findings: 1. Mild generalized volume loss. 2. Right anterior MCA vascular insult (inferior frontal gyrus, insula and right lentiform nucleus) associated with regional volume loss and compensatory dilatation of the right frontal horn. Signed by: Dr. Venkata Marrero M.D. on 05/05/2020 2:14 PM
--- NOTE | 2020-05-05 15:05 | NUR ---
CARLOS CALLED FOR MS. ECHEVERRIA SHE WILL BE AVAILABLE TO [facility]ARTER PATIENT. [phone].
== END 2020-05-05 17:35 | disposition home or self-care (01) ==
LOC: ER 13:16
DX: R53.1 Weakness (principal); I10 Essential (primary) hypertension; E11.9 Type 2 diabetes mellitus without complications; I25.10 Atherosclerotic heart disease of native coronary artery without angina pectoris; E78.5 Hyperlipidemia, unspecified; F32.9 Major depressive disorder, single episode, unspecified; Z86.73 Personal history of transient ischemic attack (TIA), and cerebral infarction without residual deficits
CPT/HCPCS: 36415; 70450; 80053; 81001; 85025; 99284

== ENCOUNTER 2020-10-15 16:00 | Emergency (ER) | payer MEDICARE, OTHER ==
[~2020-10-15] VITALS: Ht 162.6 cm; Wt 107.0 kg
== END 2020-10-15 16:58 | disposition home or self-care (01) ==
LOC: ER 16:11
DX: R21 Rash and other nonspecific skin eruption (principal); I10 Essential (primary) hypertension; E11.9 Type 2 diabetes mellitus without complications; E78.5 Hyperlipidemia, unspecified; I25.10 Atherosclerotic heart disease of native coronary artery without angina pectoris; F79 Unspecified intellectual disabilities; Z86.73 Personal history of transient ischemic attack (TIA), and cerebral infarction without residual deficits
CPT/HCPCS: 99282

== ENCOUNTER 2020-12-05 18:15 | Emergency (ER) | payer MEDICARE, OTHER ==
[~2020-12-05] VITALS: Ht 162.6 cm; Wt 107.0 kg
[2020-12-05] MEDS ORDERED: ASPIRIN 81 MG CHEW TAB PO ONE (19:45)
[2020-12-05 20:01] LABS: BASOPHILS % 0.4 % (0.0-1.0); EOSINOPHILS # (AUTO) 0.1 (0.0-0.4); EOSINOPHILS % 0.8 % (0.0-6.0); HEMATOCRIT 39.5 % (34.2-44.1); HEMOGLOBIN 12.1 g/dL (12.0-16.0); MEAN CORPUSCULAR HEMOGLOBIN 27.8 pg (28-32); MEAN CORPUSCULAR HGB CONC 30.6 g/dL (31-35); MEAN CORPUSCULAR VOLUME 90.8 fL (81-99); MONOCYTES # (AUTO) 0.6 (0.2-0.8); NEUTROPHILS # (AUTO) 4.4 (2.1-6.9); NEUTROPHILS % 54.5 % (38.7-80.0); PLATELET COUNT 243 x10e3/uL (140-360); RED BLOOD COUNT 4.35 x10e6/uL (3.6-5.1); RED CELL DISTRIBUTION WIDTH 13.1 % (11.7-14.4)
[2020-12-05 21:59] LABS: ALANINE AMINOTRANSFERASE 34 IU/L (0-55); ALBUMIN 3.7 g/dL (3.5-5.0); ALBUMIN/GLOBULIN RATIO 0.9 (0.8-2.0); ALKALINE PHOSPHATASE 77 IU/L (40-150); ANION GAP 15.1 mmol/L (8-16); BLOOD UREA NITROGEN 15 mg/dL (7-26); BUN/CREATININE RATIO 15 (6-25); CALCIUM 8.7 mg/dL (8.4-10.2); CARBON DIOXIDE 24 mmol/L (22-29); CHLORIDE 104 mmol/L (98-107); CREATINE KINASE 481 IU/L (29-168); CREATININE, SERUM 0.97 mg/dL (0.57-1.11); EST GLOMERULAR FILTRATION RATE > 60 ML/MIN (60-); GLUCOSE 213 mg/dL (74-118); POTASSIUM 4.1 mmol/L (3.5-5.1); SODIUM 139 mmol/L (136-145)
[2020-12-05 22:44] VITALS: BP 136/84
== END 2020-12-05 23:00 | disposition home or self-care (01) ==
LOC: ER 19:33
DX: I69.854 Hemiplegia and hemiparesis following other cerebrovascular disease affecting left non-dominant side (principal); I69.992 Facial weakness following unspecified cerebrovascular disease; R60.9 Edema, unspecified; M79.89 Other specified soft tissue disorders; R94.31 Abnormal electrocardiogram [ECG] [EKG]; I10 Essential (primary) hypertension; E11.65 Type 2 diabetes mellitus with hyperglycemia; E78.5 Hyperlipidemia, unspecified; I25.10 Atherosclerotic heart disease of native coronary artery without angina pectoris; F79 Unspecified intellectual disabilities; I25.2 Old myocardial infarction
CPT/HCPCS: 36415; 70450; 71045; 80053; 82550; 82553; 84484; 85025; 93005; 99284